=== PATIENT | female | born 1960 | race Caucasian/White ===

== ENCOUNTER → 2017-11-13 01:14 | Outpatient (CLI) | payer MEDICAID, SELFPAY ==
--- NOTE | 2017-11-13 14:27 | DI.REPORT_ITS ---
SYMPTOMS/DIAGNOSIS: ? SCOLIOSIS LUMBAR AND THORACIC, M23.91, M25.551, M53.3, M54.5, KYPHOSIS SACRUM AND COCCYX: No fracture is identified. No gross lytic or blastic bony lesions are identified. The SI joints and pubic symphysis are unremarkable. IMPRESSION: Negative sacrum and coccyx. PELVIS AND RIGHT HIP: The hip joint space is well maintained. There are no visible degenerative changes. The bones appear normally mineralized. IMPRESSION: Negative pelvis and right hip. RIGHT KNEE: The joint spaces are well maintained. There is minimal spurring at the articular aspect of the patella and medial tibial plateau. No joint effusion is visible. IMPRESSION: Minimal patellofemoral degenerative changes.
== END ==
PROVIDERS: PCP Naturopath; Visit Provider Naturopath
DX: M25.551 Pain in right hip (principal); M25.561 Pain in right knee; M17.11 Unilateral primary osteoarthritis, right knee; M53.3 Sacrococcygeal disorders, not elsewhere classified; M54.5 Low back pain; M40.04 Postural kyphosis, thoracic region
CPT/HCPCS: 72081; 73562; 72220; 73502

== ENCOUNTER 2018-11-13 07:00 | Outpatient (REF) | payer MEDICAID, SELFPAY ==
--- NOTE | 2018-11-13 10:00 | PAPFT_PTH ---
PATIENT: Maddi Rodriguez I LOC: [facility] U#:[id number] AGE/SX: 58/F ROOM: RE11/13/[address]: Jasmyn Us : 1960 BED: DIS: 11/13/2018 SPEC #: [id number] RECD: 11/14/18 12:47 STATUS: [place] #: [id number] TANVI: 11/13/18 10:[address]: Jasmny Us DEPT: [facility] Cytology RECD BY: Telma Lewis Tissues: 1 - CX/ENDOCX FOR PAP SMEARS Procedures: PAP THIN PREP/UVM Screening Comments: [id number]
== END 2018-11-13 07:20 ==
LOC: LBN 07:00
PROVIDERS: PCP Naturopath; Visit Provider Naturopath
DX: Z12.4 Encounter for screening for malignant neoplasm of cervix (principal)
CPT/HCPCS: 88142

== ENCOUNTER 2018-12-13 09:30 | Outpatient (CLI) | payer MEDICAID, SELFPAY ==
[2018-12-13 10:22] LABS: Absolute Basophil Count 0.02 k/cumm (0.0-0.2); Absolute Eosinophil Count 0.04 k/cumm (0.0-0.7); Absolute Lymphocyte Count 1.71 k/cumm (1.2-3.4); Absolute Monocyte Count 0.28 k/cumm (0.11-0.7); Absolute Neutrophil Count 1.32 k/cumm (1.2-6.7); Basophils % 0.6; Eosinophils % 1.2; HCT 40.9 % (36.0-46.0); HGB 13.4 g/dL (12.0-15.5); Lymphocytes % 50.7; Mean Corp. HGB Concentration 32.8 g/dL (32.0-36.0); Mean Corpuscular Hemoglobin 31.4 pg (27.0-33.0); Mean Corpuscular Volume 95.8 fL (80-95); Mean Platelet Volume 10.5 fL (8.0-11.0); Monocytes % 8.3; Neutrophils % 39.2; Platelet Count 236 x1000/uL (130-400); RBC 4.27 m/cumm (4.00-5.20); RBC Distribution Width 12.3 % (11.7-14.6); White Blood Cell Count 3.37 k/cumm (4.4-10.8)
[2018-12-13 10:36] LABS: Diff Comment Agrees w/ Instrument; RBC Morphology Normal
[2018-12-13 11:14] LABS: ALT 20 U/L (14-59); AST 19 U/L (15-37); Albumin 4.1 g/dL (3.4-5.0); Alkaline Phosphatase 75 U/L (46-116); Anion Gap 9.8 mmol/L (3-11); BUN 11 mg/dL (7-18); Bilirubin, Total 0.6 mg/dL (0.2-1.0); CO2 26.2 mmol/L (21.0-32.0); CREATININE 0.64 mg/dL (0.55-1.02); Calcium 9.3 mg/dL (8.5-10.1); Chloride 105 mmol/L (98-107); FREE T4 0.85 ng/dL (0.76-1.46); Glucose 97 mg/dL (70-100); Potassium 4.1 mmol/L (3.5-5.1); Sodium 141 mmol/L (136-145); TSH 0.68 uIU/mL (0.36-3.74)
[2018-12-13 11:40] LABS: Ferritin 72 ng/mL (8-388)
[2018-12-13 11:57] LABS: Hemoglobin A1C 5.8 % (4.5-6.2)
[2018-12-13 16:47] LABS: T3,Free 3.1 pg/ml (2.8-5.3)
[2018-12-16 14:36] LABS: ANA Interpretation Negative (NEGAT)
[2018-12-17 14:07] LABS: Apolipoprotein B, Serum 138 mg/dL (48-124); Beta VLDL Cholesterol Not Detected mg/dL (<15); Beta VLDL Triglycerides Not Detected mg/dL (<15); Cholesterol, Total, CDC 295 mg/dL; Chylomicron Cholesterol Not Detected; Chylomicron Triglycerides Not Detected; HDL Cholesterol, CDC 88 mg/dL (>=50); LDL Cholesterol 165 mg/dL; LDL Triglycerides 26 mg/dL (<=50); Lp(a) Cholesterol 32 mg/dL (<5); LpX Not detected; Triglycerides, CDC 58 mg/dL; VLDL Cholesterol 10 mg/dL (<30); VLDL Triglycerides 19 mg/dL (<120)
== END 2018-12-13 09:50 ==
PROVIDERS: PCP Naturopath; Visit Provider Naturopath
DX: R42 Dizziness and giddiness (principal); R53.83 Other fatigue; D50.9 Iron deficiency anemia, unspecified; E78.00 Pure hypercholesterolemia, unspecified; M54.40 Lumbago with sciatica, unspecified side; Z13.1 Encounter for screening for diabetes mellitus; M62.40 Contracture of muscle, unspecified site
CPT/HCPCS: 80053; 80061; 82172; 82664; 82728; 83036; 84439; 84443; 84481; 85025; 86038

== ENCOUNTER 2021-05-10 15:03 | Outpatient (REF) | payer BC, SELFPAY ==
[2021-05-11 14:07] LABS: HLA-B27 Result Negative
[2021-05-12 09:13] LABS: IgA 160 mg/dL (85-499); Interpretation (See Note); Tissue Transglutaminase IgA <1.2 U/mL (<4.0)
== END 2021-05-10 15:04 | disposition home or self-care (01) ==
LOC: NCHCN 15:03
PROVIDERS: PCP Naturopath; Visit Provider Family Medicine
DX: M19.90 Unspecified osteoarthritis, unspecified site (principal); M54.59 Other low back pain; R10.9 Unspecified abdominal pain
CPT/HCPCS: 82784; 83516; 86812

== ENCOUNTER 2022-05-09 14:40 | Emergency (ER) | payer BC, SELFPAY ==
[2022-05-09 14:44] VITALS: BP 101/71; PULSE 77; RESP 20; TEMP 36.8; O2SAT 99
[2022-05-09 16:20] VITALS: BP 117/81; PULSE 75; RESP 16; TEMP 36.7; O2SAT 97
--- NOTE | 2022-05-09 16:20 | W.ED.GENAD ---
Discharge Plan Disposition Patient Disposition: Home Condition: Stable Discharge Details Clinical Impression: Ankle pain, right Primary Care Provider: Jada Ventura V ED Provider: Bernard Abernathy Home Meds and New Rx's Prescriptions: Continued valacyclovir 500 MG tablet 500 mg PO BID Qty: 6 Label Comments: pt. reports PRN multivitamin 1 EACH capsule 1 cap PO DAILY magnesium 200 MG tablet 200 mg PO DAILY Label Comments: pt. unsure of dose cholecalciferol (vitamin D3) 1,000 UNITS tablet 1 tab PO DAILY acetaminophen [Acetaminophen Extra Strength] 500 MG tablet 1,000 mg PO TID Qty: 90 1RF ibuprofen 600 MG tablet 600 mg PO Q6H PRN PRNQty: 90 1RF Discharge Instructions Instructions: Ankle Strain (ED) Additional Instructions: Rest, elevate, cool compresses every 2 hours for 20 minutes. [id number]-ume-scpicaf anti-inflammatory medication as directed. Wear ankle brace and use crutches as needed, advance activity as tolerated. Please watch for new or worsening symptoms and return to the ER for any concerns. If conservative measures or not resolving her symptoms that I do recommend following up with either your primary care provider or orthopedics in the next week. Referrals: Donovan Bassett MD [ [facility] STAFF PHYSICIAN] - Discharge Data Discharge Date/Time-TO BE ENTERED AT DEPARTURE: 05/09/22 16:26 Medical Decision Making This is a 62-year-old female who reports right foot and ankle pain for the past 3 weeks, primarily on the medial aspect, denies any injury. Bought [id number] orthotics and has been treating this as what she thought was to be plantar fasciitis but over the past 24 hours reports more pain along the posterior and medial aspect of her heel, she spoke with a friend who is a physical therapist, suggested that she could have Achilles tendinitis and recommended coming to the ER for an MRI. She denies chest pain, shortness of breath, fever, calf pain or swelling. Clinically she appears well, nontoxic. I did explain to her that unfortunately we cannot obtain a stat MRI today, could obtain plain films. She understands the limitations of plain films, no trauma, declines which I believe to be reasonable. Plan is to treat with a lace up splint, patient already has crutches, and she will follow-up with either her PCP or orthopedics for further evaluation. No clinical indication of an Achilles rupture, septic joint, DVT, etc. Recommend conservative measures until she is followed by an outpatient provider such as rest, elevate, cool compresses, anti-inflammatories, etc. Standard discharge and return precautions were provided. Patient understands, is agreeable to this plan, and has no additional questions or concerns upon discharge. This documentation was generated using [employer] system, please disregard any oddities of phrase or misspellings. Medical Records Medical records reviewed: Yes I reviewed the patient's medical records. HPI General Mode of arrival: ambulatory. Date/Time Provider Initiated Documentation: 05/09/22 14:41. Limitations to Documentation: no limitations. Information obtained by: patient. History of Present Illness 62 year old F presents to the emergency department with the chief complaint of R ankle pain, described as moderate, with intensity rated at 4. Quality is described as aching, and is localized to the right and lower extremity. Patient reports no radiation. Patient started experiencing this week(s) (3) and it has been constant. No relieving factors improve symptom(s), Movement worsens symptoms . Patient notes no other symptoms.. Patient did receive the following treatments prior to arrival, none Related Data Home Medications Medication Instructions Recorded Confirmed valacyclovir 500 mg tablet 500 mg PO BID #6 tabs 11/24/13 05/09/22 acetaminophen 500 mg tablet 1,000 mg PO TID ##90 03/06/17 05/09/22 (Acetaminophen Extra Strength) cholecalciferol (vitamin D3) 25 1 tab PO DAILY 03/06/17 05/09/22 mcg (1,000 unit) tablet ibuprofen 600 mg tablet 600 mg PO Q6H PRN PRN ##90 03/06/17 05/09/22 magnesium 200 mg tablet 200 mg PO DAILY 03/06/17 05/09/22 multivitamin 1 cap PO DAILY 03/06/17 05/09/22 Previous Rx's Medication Instructions Recorded acetaminophen 500 mg tablet 1,000 mg PO TID ##90 03/06/17 (Acetaminophen Extra Strength) ibuprofen 600 mg tablet 600 mg PO Q6H PRN PRN ##90 03/06/17 Allergies Allergy/AdvReac Type Severity Reaction Status Date / Time codeine AdvReac Unverified 05/09/22 14:48 General Stated Complaint: Orthopedic HOLLY: 4 Review of Systems Constitutional Constitutional: Denies fever(s) and Denies weakness Cardiovascular Cardiovascular: Denies chest pain and Denies dyspnea Respiratory Respiratory: Denies dyspnea Musculoskeletal Musculoskeletal: Reports arthralgias, Denies numbness, Reports stiffness and Denies tingling Integumentary/Breasts Skin/Breast: Denies rash Neurologic Neurologic: Denies numbness, Denies tingling and Denies weakness PFSH All Active Problems Ankle pain, right (Acute) Medical History Genital herpes simplex Surgical History Fracture, Open Treatment 1972 R leg 2002 R ankle some hardware removed with 2 pins left in situ Family History Mother Personal history of malignant neoplasm Social History Smoking/Tobacco Use Status: Never Smoking risk assessment performed?: Yes Alcohol Intake: current Alcohol Intake frequency: 0-2 drinks per day Alcohol type: wine Drug use: Never Substance use type: does not use Do you feel safe at home: Yes Do you feel safe in your relationship?: Yes Exam Const General: cooperative, healthy appearing, comfortable and no acute distress Orientation: alert and awake HENLA Head: normal to inspection, normocephalic and atraumatic Eyes Conjunctivae: conjunctivae normal Neck Neck: normal visual inspection, full ROM, no meningeal signs, trachea midline and supple Resp Effort & Inspection: normal respiratory effort and able to speak in complete sentences Cardio Rate: regular rate Rhythm: regular rhythm Skin General skin exam: no rashes or lesions noted Neuro General: patient alert, patient awake, moves all extremities and no focal motor deficits Cognition: normal cognition Speech: speech normal Gait: antalgic (Minimally) Sensory Exam: no sensory deficits noted Extrem General: normal to inspection, full ROM and capillary refill normal Ankle/foot/toe images: 1. Diffuse mild discomfort. There is no erythema, swelling, warmth. Skin is intact. 5 out of 5 strength. Neuro, vascular, tendon intact. Multiple pulse and capillary refill. Psych Appearance: grossly normal Mental Status: mental status grossly normal Course Vital Signs Vital signs: Vital Signs Temperature 36.8 C 05/09/22 14:44 Pulse 77 05/09/22 14:44 Respiratory Rate 20 05/09/22 14:44 Blood Pressure 101/71 05/09/22 14:44 Pulse Oximetry 99 05/09/22 14:44 Temperature 36.8 C 05/09/22 14:44 Temperature Source Skin 05/09/22 14:44 Pulse 77 05/09/22 14:44 Respiratory Rate 20 05/09/22 14:44 Respiratory Effort 05/09/22 14:49 Blood Pressure 101/71 05/09/22 14:44 Blood Pressure Position Sitting 05/09/22 14:44 Pulse Oximetry 99 05/09/22 14:44 Oxygen Delivery Method Room Air 05/09/22 14:44 Oxygen Flow Rate 0 05/09/22 14:44 Pain Level 5 05/09/22 14:44
== END 2022-05-09 16:26 | disposition home or self-care (01) ==
PROVIDERS: Emergency Provider Physician Assistant; PCP Family Medicine
DX: M25.571 Pain in right ankle and joints of right foot (principal)
CPT/HCPCS: 99282; 99283

== ENCOUNTER 2022-05-10 15:47 | Outpatient (CLI) | payer BC, SELFPAY ==
--- NOTE | 2022-05-10 15:15 | DI.RAD_ITS ---
Exam(s) XR ANKLE RT COMPLETE EXAM: XR ANKLE RT COMPLETE CLINICAL HISTORY: RIGHT ANKLE PAIN. TECHNIQUE: 2D digital imaging was performed. Three images were obtained. AP, lateral and oblique vi ews were obtained. COMPARISON: CR RIGHT ANKLE COMPLETE from 01/17/2017 FINDINGS: BONES: There are stable post operative changes present. No new fracture or dislocation. There is a s mall plantar calcaneal spur. JOINTS: The joint spaces are well maintained. No joint effusion is present. SOFT TISSUE: Normal. IMPRESSION: Stable postoperative changes. DATA REPOSITORY: RADIATION DOSE DELIVERED:
== END 2022-05-10 15:48 | disposition home or self-care (01) ==
LOC: DIORS 15:47
PROVIDERS: PCP Family Medicine; Referring Provider Family Medicine; Visit Provider Student in an Organized Health Care Education/Training Program
DX: M25.571 Pain in right ankle and joints of right foot (principal)
CPT/HCPCS: 73610

== ENCOUNTER 2023-03-12 11:47 | Outpatient (REF) | payer MEDICARE, BC, SELFPAY ==
[2023-03-12 16:03] LABS: TSH (W/Ref FT4) 0.86 uIU/mL (0.36-3.74)
== END 2023-03-12 11:48 | disposition home or self-care (01) ==
LOC: NCHCN 11:47
PROVIDERS: PCP Family Medicine; Visit Provider Nurse Practitioner Family
DX: R53.83 Other fatigue (principal)
CPT/HCPCS: 84443

== ENCOUNTER → 2023-03-13 02:21 | Outpatient (CLI) | payer MEDICARE, BC, SELFPAY ==
--- NOTE | 2023-03-13 10:03 | DI.US_ITS ---
Exam(s) US SOFT TISSUE HEAD OR NECK EXAM: US SOFT TISSUE HEAD OR NECK CLINICAL HISTORY: MASS OF NECK, R22.1,SINGLE LYMPH NODE TONSILLAR AREA. TECHNIQUE: Ultrasound was performed using standard protocol. COMPARISON: No exams were available for comparison FINDINGS: Sonographic assessment utilizing grayscale and color Doppler imaging was performed and targeted to th e area of clinical concern. There is a 1.2 x 0.8 x 1.4 cm peripherally calcified nodule in the submandibular region of the left n minerva. There are several sonographically benign-appearing lymph nodes in the left neck. The largest m easures 1.7 cm. IMPRESSION: Nonspecific 1.2 x 0.8 x 1.4 cm periphery calcified nodule in the left submandibular region. A CT sca n of the neck with contrast is recommended for further evaluation. DATA REPOSITORY:
== END ==
PROVIDERS: PCP Family Medicine; Visit Provider Nurse Practitioner Family
DX: R22.1 Localized swelling, mass and lump, neck (principal)
CPT/HCPCS: 76536

== ENCOUNTER → 2023-03-21 03:12 | Outpatient (CLI) | payer MEDICARE, BC, SELFPAY ==
--- NOTE | 2023-03-21 | DI.CT_ITS ---
Exam(s) CT NECK W EXAM: CT NECK W CLINICAL HISTORY: ABNL FINDINGS R93.89 US ON 03/13. TECHNIQUE: Imaging Protocol: Axial computed tomography images with coronal and sagittal reformatted images were created and reviewed. CONTRAST MATERIAL: Intravenous: Omnipaque 350 Contrast volume:100mL COMPARISON: US US SOFT TISSUE HEAD OR NECK from 03/13/2023 FINDINGS: There is artifact from the patient's dental work predominantly affecting evaluation of the oropharynx . Orbits and orbital soft tissues: Within normal limits. Visualized paranasal sinuses: Within normal limits. Nasopharynx: Within normal limits. Oropharynx: Within normal limits. Hypopharynx: Within normal limits. Larynx: Within normal limits. Retropharyngeal space: Within normal limits. Parotids/submandibular: Within normal limits. There is a 0.9 x 1.3 cm peripherally calcified mass wh ich lies near the angle of the mandible. It is adjacent to the left submandibular gland and may be s eparate from the gland. There is a smaller 3 mm calcification laterally. Thyroid gland: Within normal limits. Lymphadenopathy: There is scattered lymph nodes seen along the level one to level three all measurin g less than 8 mm in short axis diameter which are physiologic in nature. Trachea: Within normal limits. Lung apices: Within normal limits. Bones: Within normal limits for the patient's age. Carotids/Jugular: Within normal limits. Soft tissues: Within normal limits. IMPRESSION: 1. 0.9 x 1.3 cm peripherally calcified lesion in the soft tissues corresponding to the sonographic ab normality. Differential considerations include a calcified lymph node, sialolith or vascular calcifi cation/phlebolith. 2. No evidence of cervical adenopathy or soft tissue mass. RADIATION DOSE DELIVERED: Total DLP Total DLP DATA REPOSITORY: All CT scans at this facility are submitted to the National Radiology Data Registry (NRDR) Dose Index Registry (DIR) with the [employer] ([employer]). RADIATION OPTIMIZATION: All CT scans at this facility use at least one of these dose optimization te chniques: automated exposure control; mA and/or kV adjustment per patient size (includes targeted exa ms where dose is matched to clinical indication); or iterative reconstruction.
[2023-03-21 09:49] LABS: CREATININE 0.6 mg/dL (0.55-1.02); Estimated GFR 99.55 (mL/min/1.73m2)
[2023-03-21] MEDS: Normal Saline - Diluent 50 ML VIAL IJ (10:18)
[2023-03-21] MEDS: Omnipaque 350 MG/ML 500 ML BTL-Imaging package 100 ML IJ (10:23)
[2023-03-21] MEDS: Normal Saline Flush 10 ML SYR IVP (10:27)
== END ==
PROVIDERS: PCP Family Medicine; Visit Provider Nurse Practitioner Family
DX: R93.89 Abnormal findings on diagnostic imaging of other specified body structures (principal)
CPT/HCPCS: 36415; 70491; 82565

== ENCOUNTER 2023-08-07 10:43 | Outpatient (REF) | payer MEDICARE, BC, SELFPAY ==
[2023-08-07 15:28] LABS: HCT 39.2 % (36.0-46.0); HGB 13.4 g/dL (11.2-15.7)
[2023-08-07 16:05] LABS: ALT 23 U/L (14-59); AST 20 U/L (15-37); Albumin 4.2 g/dL (3.4-5.0); Alkaline Phosphatase 87 U/L (46-116); Anion Gap 10.9 mmol/L (3-11); BUN 16 mg/dL (7-18); Bilirubin, Total 0.5 mg/dL (0.2-1.0); CO2 27.1 mmol/L (21.0-32.0); CREATININE 0.7 mg/dL (0.55-1.02); Calcium 9.3 mg/dL (8.5-10.1); Chloride 103 mmol/L (98-107); Estimated GFR 95.92 (mL/min/1.73m2); Ferritin 70 ng/mL (8-252); Glucose 117 mg/dL (74-106); Potassium 4.4 mmol/L (3.5-5.1); Sodium 141 mmol/L (136-145); TSH 0.64 uIU/Ml (0.36-3.74); Total Protein 7.3 g/dL (6.4-8.2)
[2023-08-07 16:22] LABS: Hemoglobin A1C 5.7 % (<5.7)
== END 2023-08-07 10:44 | disposition home or self-care (01) ==
LOC: NCHCN 10:43
PROVIDERS: PCP Family Medicine; Visit Provider Family Medicine
DX: J01.90 Acute sinusitis, unspecified (principal); Z00.00 Encounter for general adult medical examination without abnormal findings
CPT/HCPCS: 80053; 82728; 83036; 84443; 85014; 85018

== ENCOUNTER 2023-10-25 09:23 | Outpatient (CLI) | payer MEDICARE, BC, SELFPAY | END 2023-10-25 09:24 | disposition home or self-care (01) | LOC: LBO 11-05 09:23 | PROVIDERS: PCP Nurse Practitioner Family; Visit Provider Nurse Practitioner Adult Health | DX: R51.9 Headache, unspecified (principal); R23.2 Flushing; R50.9 Fever, unspecified | CPT/HCPCS: 36415; 99215; G2212; 87207 ==

== ENCOUNTER → 2023-10-25 13:34 | Outpatient (BNVA) | payer MEDICARE, BC, SELFPAY | PROVIDERS: PCP Family Medicine; Referring Provider Family Medicine; Visit Provider Nurse Practitioner Adult Health | DX: R51.9 Headache, unspecified (principal); M54.2 Cervicalgia; Z11.6 Encounter for screening for other protozoal diseases and helminthiases | CPT/HCPCS: 99215; G2212 ==

== ENCOUNTER 2023-11-01 14:54 | Outpatient (CLI) | payer MEDICARE, BC, SELFPAY ==
[2023-11-01 14:00] LABS: Abs Immature Grans 0.01 10^3/uL (0.0-0.06); Absolute Basophil Count 0.03 10^3/uL (0.0-0.2); Absolute Eosinophil Count 0.04 10^3/uL (0.0-0.7); Absolute Lymphocyte Count 2.54 10^3/uL (1.2-3.4); Absolute Monocyte Count 0.37 10^3/uL (0.1-0.8); Absolute Neutrophil Count 2.11 10^3/uL (1.2-6.7); Basophils % 0.6 %; Eosinophils % 0.8 %; HCT 39.4 % (36.0-46.0); HGB 13.2 g/dL (11.2-15.7); Immature Grans % 0.2 %; Lymphocytes % 49.8 %; MCH 31.7 pg (27.0-33.0); MCHC 33.5 % (32.0-36.0); MCV 95 fL (80-95); MPV 9.7 fL (8.0-11.0); Monocytes % 7.3 %; Neutrophils % 41.3 %; Platelet Count 237 10^3/uL (130-400); RBC 4.17 10^6/uL (3.93-5.22); RDW 11.9 % (11.7-14.6); RDW-SD 41.6 fL
--- OUTSIDE RECORDS SUMMARY | 2023-11-01 14:58 | XMS_ITS | Data Portability ---
Author Organization [place] - [facility], [facility] [place] [address] Care Team Providers Care Woodyard Operator Name Role Phone CATHERINE HARVEY Primary Care Provider Assessment No assessment recorded. Plan of Treatment Reminders Order Date Submit Date Provider Last Modified By Organization Details Last Modified Time Details Appointments None recorded. Lab TSH, serum, reflex free T4 - collected at [facility] [address] Laboratory (Registration ), [address] [place] [address] [place], [address], 3 12:57:46 hemoglobin + hematocrit, blood [address] [facility] (Registration ), [address] [place] [address] [place], [address], 4 17:08:07 CMP, serum or plasma [address] [facility] (Registration ), [address] [place] [address] [place], [address], 4 17:08:07 Referral None recorded. Procedures None recorded. Surgeries None recorded. Imaging US, neck, soft tissue - Patient has single lymph node left tonsillar area been there for a number of years would like further evaluation. 2022 023 [email or web address] [facility], [address], [place], [address], 3 12:58:46 Medication Orders None recorded. Patient TargetsNo targets recorded. Patient Instructions Encounter Date Encounter Id Patient Instructions Last Modified By Organization Details Last Modified Time 03/12/2023 [id number] continue with melatonin (can go up to 10mg a night), perform good sleep hygeine- go to bed when VERY tire, avoid caffeine, consider cutting back on alcohol in the evening. If no improvement call and will refer to sleep clinic. checking thyroid today- will mail home results. expect a call from [facility] re: US on the lymph node in your neck continue PT for your neck/back- if no improvment in 4-6 weeks call and will re-evaluate- consider imaging of spine follow up as needed [email or web address] Not available 03/12/2023 10:00:46 Reason for Referral ENT Surgery Referral for Sin us headache Referring Physician: Catherine Harvey, Family Medicine, Encounter Date: 08/31/2023 Results Created Date Observation Date Name Description Value Unit Range Abnormal Flag LastModifiedBy Organization Detail LastModifiedTime 03/12/2003/12/2023 TSH (W/RE F FT4) TSH (w/ref FT4) 0.86 uIU/m L 0.36-3 .74 normal Not Available [address] [place], [address] 03/12/2023 16:06:16 03/21/20 23 03/21/2023 CREAT ININE creatinine 0.6 mg/dL 0.55-1 .02 normal Not Available [address] [place], [address] 03/21/2023 09:56:14 03/21/20 23 03/21/2023 CREAT ININE estimated GFR 99.55 mL/min /1.73m 2 Not Available [address] [place], [address] 03/21/2023 09:56:14 08/07/19 24 08/07/2023 HEMOG LOBIN /RUSLAN TOCRI T HGB 13.4 g/dL 11.2-1 5.7 normal Not Available [address] [place], [address] 08/07/2023 15:39:30 08/07/19 24 08/07/2023 HEMOG LOBIN /RUSLAN TOCRI T HCT 39.2 % 36.0-4 6.0 normal Not Available [address] [place], [address] 08/07/2023 15:39:30 08/07/19 24 08/07/2023 COMPR EHENS NAVEEN METAB OLIC PANEL calcium 9.3 mg/dL 8.5-10 .1 normal Not Available [address] [place], [address] 08/07/2023 16:08:57 08/07/19 24 08/07/2023 COMPR EHENS NAVEEN METAB OLIC PANEL glucose 117 mg/dL 74-106 high Not Available [address] [place], [address] 08/07/2023 16:08:57 08/07/19 24 08/07/2023 COMPR EHENS NAVEEN METAB OLIC PANEL BUN 16 mg/dL 7-18 normal Not Available [address] [place], [address] 08/07/2023 16:08:57 08/07/19 24 08/07/2023 COMPR EHENS NAVEEN METAB OLIC PANEL creatinine 0.7 mg/dL 0.55-1 .02 normal Not Available [address] [place], [address] 08/07/2023 16:08:57 08/07/19 24 08/07/2023 COMPR EHENS NAVEEN METAB OLIC PANEL estimated GFR 95.92 mL/min /1.73m 2 Not Available [address] [place], [address] 08/07/2023 16:08:57 08/07/19 24 08/07/2023 COMPR EHENS NAVEEN METAB OLIC PANEL total protein 7.3 g/dL 6.4-8. 2 normal Not Available [address] [place], [address] 08/07/2023 16:08:57 08/07/19 24 08/07/2023 COMPR EHENS NAVEEN METAB OLIC PANEL albumin 4.2 g/dL 3.4-5. 0 normal Not Available [address] [place], [address] 08/07/2023 16:08:57 08/07/19 24 08/07/2023 COMPR EHENS NAVEEN METAB OLIC PANEL bilirubin, total 0.5 mg/dL 0.2-1. 0 normal Not Available [address] [place], [address] 08/07/2023 16:08:57 08/07/19 24 08/07/2023 COMPR EHENS NAVEEN METAB OLIC PANEL alk phos 87 U/L 46-116 normal Not Available [address] [place], [address] 08/07/2023 16:08:57 08/07/19 24 08/07/2023 COMPR EHENS NAVEEN METAB OLIC PANEL sodium 141 mmol/ L 136-14 5 normal Not Available [address] [place], [address] 08/07/2023 16:08:57 08/07/19 24 08/07/2023 COMPR EHENS NAVEEN METAB OLIC PANEL potassium 4.4 mmol/ L 3.5-5. 1 normal Not Available [address] [place], [address] 08/07/2023 16:08:57 08/07/19 24 08/07/2023 COMPR EHENS NAVEEN METAB OLIC PANEL chloride 103 mmol/ L 98-107 normal Not Available [address] [place], [address] 08/07/2023 16:08:57 08/07/19 24 08/07/2023 COMPR EHENS NAVEEN METAB OLIC PANEL CO2 27.1 mmol/ L 21.0-3 2.0 normal Not Available [address] [place], [address] 08/07/2023 16:08:57 08/07/19 24 08/07/2023 COMPR EHENS NAVEEN METAB OLIC PANEL anion gap 10.9 mmol/ L 3-11 normal Not Available [address] [place], [address] 08/07/2023 16:08:57 08/07/19 24 08/07/2023 COMPR EHENS NAVEEN METAB OLIC PANEL AST 20 U/L 15-37 normal Not Available [address] [place], [address] 08/07/2023 16:08:57 08/07/19 24 08/07/2023 COMPR EHENS NAVEEN METAB OLIC PANEL ALT 23 U/L 14-59 normal Not Available [address] [place], [address] 08/07/2023 16:08:57 08/07/19 24 08/07/2023 NIK TIN ferritin 70 NG/mL 8-252 normal Not Available [address] [place], [address] 08/07/2023 16:08:58 08/07/19 24 08/07/2023 TSH TSH 0.64 uIU/m L 0.36-3 .74 normal Not Available [address] [place], [address] 08/07/2023 16:08:58 08/07/19 24 08/07/2023 HEMOG LOBIN A1C hemoglobin A1C 5.7 % <5.7 Not Available [address] [place], [address] 08/07/2023 16:29:01 10/25/19 24 10/29/2023 WICHO ITE EXAM, BLOOD parasite identificati on SEE BELOW (see note) Not Available [address] [place], [address] 10/29/2023 08:18:07 03/13/20 23 03/13/2023 ultra sound imagi ng repor t Contreras t Name: Nahomy Araujo Unit #: [id number] Loc: DI Orderi ng Provid er: Gabriel Negron t #: [id number] Status : REG CLI Primar y Care Provid er: Yue Bauer M.D. Date of Exam : Sex: F Admiss ion Date: : 1959 Age: 62 Exam(s ) US SOFT TISSUE HEAD OR NECK EXAM: US SOFT TISSUE HEAD OR NECK CLINIC AL HISTOR Y: MASS OF NECK, R22.1, SINGLE LYMPH NODE TONSIL LAR AREA. TECHNI QUE: Ultras ound was perfor med using standa rd protoc ol. COMPAR RUBI: No exams were availa ble for compar rubi FINDIN GS: Sonogr aphic assess ment utiliz ing graysc marsha and color Dopple r imagin g was perfor med and target ed to the area of clinic al concer n. There is a 1.2 x 0.8 x 1.4 cm periph erally calcif ied nodule in the subman dibula r region of the left neck. There are severa l sonogr aphica lly benign -appea ring lymph nodes in the left neck. The larges t measur es 1.7 cm. IMPRES DALLAS: Nonspe cific 1.2 x 0.8 x 1.4 cm periph derek calcif ied nodule in the left subman dibula r region . A CT scan of the neck with contra st is recomm ended for furthe r evalua tion. DATA REPOSI TORY: Ordere d By: Gabriel Negron CC: ------ ------ ------ ------ ------ ------ ------ ------ ------ ------ ------ ------ - Dictat ed By: Sarmad Guzmán M.D. 1028 1028 Transc ribed By: Sarmad Guzmán 1028 This is privil eged, confid ential inform ation intend ed only for the provid er named. Any use or distri bution by any person other than this provid er is strict ly prohib ited. If you receiv e this report in error, please notify us immedi ately at and return the origin al report to us at the addres s above. Thank- you. [email or web address] [address] [place], [address] 03/14/2023 14:37:17 03/21/20 23 03/21/2023 CT imagi ng repor t Contreras t Name: Nahomy Araujo Unit #: [id number] Loc: DI Orderi ng Provid er: Gabriel Negron t #: [id number] Status : REG CLI Primar y Care Provid er: Yue Bauer M.D. Date of Exam : Sex: F : 1959 Age: 63 Exam(s ) a CT:CT neck w Exam(s ) CT NECK W EXAM: CT NECK W CLINIC AL HISTOR Y: ABNL FINDIN GS R93.89 US ON 03/13. TECHNI QUE: Imagin g Protoc ol: Axial comput ed tomogr aphy images with velazquez l and sagitt al reform atted images were create d and review ed. CONTRA ST MATERI AL: Intrav enous: Omnipa que [address] volume :100mL COMPAR RUBI: US US SOFT TISSUE HEAD OR NECK from 2022 FINDIN GS: There is artifa ct from the patien t's dental work predom inantl y affect ing evalua tion of the oropha rynx. Orbits and orbita l soft tissue s: Within normal limits . Visual ized parana jemma sinuse s: Within normal limits . Nasoph arynx: Within normal limits . Oropha rynx: Within normal limits . Hypoph arynx: Within normal limits . Larynx : Within normal limits . Retrop haryng eal space: Within normal limits . Paroti ds/sub mandib ular: Within normal limits . There is a 0.9 x 1.3 cm periph erally calcif ied mass which lies near the angle of the mandib le. It is adjace nt to the left subman dibula r gland and may be separa te from the gland. There is a smalle r 3 mm calcif icatio n latera lly. Thyroi d gland: Within normal limits . Lympha denopa thy: There is scatte red lymph nodes seen along the level one to level three all measur ing less than 8 mm in short axis diamet er which are physio logic in nature . Trache a: Within normal limits . Lung apices : Within normal limits . Bones: Within normal limits for the patien t's age. Caroti ds/Jug ular: Within normal limits . Soft tissue s: Within normal limits . IMPRES DALLAS: 1. 0.9 x 1.3 cm periph erally calcif ied lesion in the soft tissue s corres shey g to the sonogr aphic abnorm ality. Differ ential consid eratio ns includ e a calcif ied lymph node, sialol ith or vascul ar calcif icatio n/phle bolith . 2. No eviden ce of cervic al adenop athy or soft tissue mass. RADIAT ION DOSE DELIVE RED: Total DLP Total DLP DATA REPOSI TORY: All CT scans at this facili ty are submit evens to the [facility] al Radiol ogy Data Regist ry (NRDR) Dose Index Regist ry (DIR) with the [place] medellin of Radiol ogy (ACR). RADIAT ION OPTIMI ZATION : All CT scans at this facili ty use at least one of these dose optimi zation techni ques: automa evens exposu re contro l; mA and/or kV adjust ment per patien t size (inclu cynthia target ed exams where dose is matche d to clinic al indica tion); or iterat naveen recons tructi on. 1220-0 002: Total DLP = 0.00 mGy-cm Ordere d By: Gabriel Negron CC: ------ ------ ------ ------ ------ ------ ------ ------ ------ ------ ------ ------ ---- Dictat ed By: Sarmad Guzmán M.D. 1806 Transc ribed By: Sarmad Guzmán 1806 This is privil eged, confid ential inform ation intend ed only for the provid er named. Any use or distri bution by any person other than this provid er is strict ly prohib ited. If you receiv e this report in error, please notify us immedi mika at and return the origin al report to us at the addres s above. Thank- you. [email or web address] [facility] [address], [place], [address] 09/07/2023 13:20:37 09/20/19 24 09/18/2023 MRI, brain , w/wo contr ast No observ ation record ed. [email or web address] [facility] [address] [facility], [place], [address], 09/21/2023 15:57:13 Result Notes None recorded. Problems Name Status Onset Date Resolution Date Notes Provider Name and Address Organization Details Recorded Time Osteoarthritis Active 202011/22/2022 - Comments only - Catherine Harvey MD - Not bothering her significantly currently, she is remaining quite physically active. Problem Code: M19.90; Problem Code Type: ICD-10; Not Available [facility] 3 05:49:38 Disorder of cholesterol metabolism Active 202011/22/2022 - Comments only - Catherine Harvey MD - We discussed checking a lipid panel with her wellness check next year. Problem Code: E78.70; Problem Code Type: ICD-10; Not Available [facility] 3 05:49:39 Herpesvirus infection Active 202011/22/2022 - Comments only - Catherine Harvey MD - Recurring lesion right buttock area. She feels that the acyclovir 200 mg is not adequate to keep it controlled. She will be having increasing flares recently, she realizes stress related. She previously remembers being on a 500 mg tablet. I explained that would be valacyclovir, she confirmed that it was not that worked better. Also take valacyclovir 500 mg twice daily for an acute flare for a week, then she can take it daily prophylacticall y at least while life is more stressful. Problem Code: B00.9; Problem Code Type: ICD-10; Not Available [facility] 3 05:49:39 History of infectious disease Active 2021 Problem Code: Z86.19; Problem Code Type: ICD-10; Not Available [facility] 3 05:49:39 Adult health examination Active 202111/22/2022 - Comments only - Catherine Harvey MD - Mandi has a mammogram scheduled, up-to-date with Pap, due for colonoscopy, ordered. We will plan on a DEXA scan next year. She continues to lead a healthy lifestyle. Problem Code: Z00.00; Problem Code Type: ICD-10; Not Available [facility] 3 05:49:39 Abdominal pain Active 202104/18/2021 - Comments only - Catherine Harvey MD - , Intermittent. She feels it may be related to certain foods and has been trying to experiment with that. She did do an elimination diet but it was added challenging time in her life and does not think she really was able to focus well on it. We will get a copy of her colonoscopy report, and a blood work that could have been done. If she has not had a celiac panel checked then we will plan on checking that. Problem Code: R10.9; Problem Code Type: ICD-10; Not Available [facility] 3 05:49:39 Counseling Active 2021 Problem Code: Z71.89; Problem Code Type: ICD-10; Not Available [facility] 3 05:49:39 Low back pain Active 2021 Problem Code: M54.50; Problem Code Type: ICD-10; Not Available [facility] 3 05:49:39 Pain in left arm Active 202111/03/2021 - Comments only - Prosper López-Gerber [facility] - - It sounds as though she may have some combination of hand osteoarthritis and possibly lateral epicondylitis. She is not experiencing any numbness or tingling to suggest nerve impingement. - I gave her handout of exercises for hand arthritis. - Also suggested topical NSAID to the affected areas as needed. She may also benefit from icing these areas when they are feeling irritated. -For her elbow, I did suggest use of a counterforce brace to wear during activities that may be causing flareups, and also encouraged her to avoid hyperextending the elbow. -She is clearly benefited from massage, and I encouraged her to continue with this. 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 -She will call with any further questions or concerns. Problem Code: M79.602; Problem Code Type: ICD-10; Not Available [facility] 05:49:39 Screening for malignant neoplasm of colon Active 2022 Problem Code: Z12.11; Problem Code Type: ICD-10; Not Available [facility] 05:49:39 Anxiety Active 202211/22/2022 - Comments only - Catherine Harvey MD - Supportive listening today. She does have a counselor she is working with, is planning a trip by herself [place] couple of her children soon and thinks that will be helpful. Problem Code: F41.8; Problem Code Type: ICD-10; Not Available [facility] 05:49:39 Attention deficit hyperactivity disorder Active 202211/22/2022 - Comments only - Catherine Harvey MD - , Likely by discussion of symptoms. This may be contributing to anxiety as above. She is amenable to trying medication for ADHD. She is going to find out what her niece is using and let me know. Problem Code: F90.9; Problem Code Type: ICD-10; Not Available [facility] 05:49:40 Insomnia Active 202211/22/2022 - Comments only - Catherine Harvey MD - Which has been quite severe lately given situational stress. Her naturopathic provider had suggested she trial Sonata but had wanted me to weigh in regarding that. I told him we will have her trial it, just not use it nightly, not for more than 2 consecutive weeks. Rx done. Problem Code: G47.00; Problem Code Type: ICD-10; Not Available [facility] 3 05:49:40 Acute sinusitis Active 2023 [place], [facility]- [address], [place], [address] , [place] - [facility]. 4 12:59:38 Fatigue Active [address], [place], [address] , [facility]. 4 08:07:24 Problem Notes None recorded. Procedures Surgical History None recorded. Imaging Results Imaging Date Name Status LastModified by Organiz ation Details LastModified Time 03/13/2023 ultrasound imaging report completed [email or web address] [facility] [address] [place] [address] [place], [address] 03/14/2023 14:37:17 03/21/2023 CT imaging report completed [email or web address] [address] [place], [address] 09/07/2023 13:20:37 09/18/2023 MRI, brain, w/wo contrast completed [email or web address] [place] [address] [address] [facility], [place], [address], 09/21/2023 15:57:13 Procedure Notes None recorded. Medical Equipment None Reported. Allergies Allergen ID Allergen Name Allergen Category Reaction Reaction Severity Criticality Documentation Date Start Date Code Code System Note Provider Name and Address Organization Details Recorded Time 31213 codeine medicatio n nausea moderate Not available 02/09/20232020 2670 RxNorm nause a Aller gyCod e: '0040 93866 32'; Aller gyNam e: 'CODE INE'; Aller gyCon ceptT ype: 'NDC' ; Not Available [facility] 3 16:26:22 Medications Name Sig Start Date Stop Date Status Note LastModified by Organization Details LastModified Time methylpheni date 5 mg tablet TAKE 1 TABLET BY MOUTH IN THE MORNING FOR 1 TO 2 DAYS IF NO EFFECT THEN TAKE 2 TABLETS IN THE MORNING CAN INCREASE TO 3 IN THE MORNING OR 2 03/12 completed Not Available Not Available Not Available valacyclovi r 500 mg tablet TAKE 1 TABLET BY MOUTH ONCE A DAY,CAN INCREASE TO TWICE A DAY FOR 5-7 DAYS WITH AN OUTBREAK active Not Available Not Available No t Available Vitamin D3 10 mcg (400 unit) tablet Take 1 tablet by mouth once a day 04/15 completed Not Available Not Available Not Available benzonatate 100 mg capsule take 1 capsule by oral route 3 times every day as needed for cough 03/12 completed Not Available Not Available Not Available pseudoephed rine 30 mg tablet Take 1 tablet every day by oral route. 08/06 completed Not Available Not Available Not Available acyclovir 200 mg capsule Take 1 capsule by mouth twice a day as needed for herpes outbreak 11/21 completed Not Available Not Available Not Available zaleplon 5 mg capsule TAKE ONE CAPSULE BY MOUTH AT BEDTIME CAN INCREASE TO TWO CAPSULES AT BEDTIME IF NEEDED AVOID USE NIGHTLY AND DO NOT USE FOR MORE THAN 2 CONS 03/12 completed Not Available Not Available Not Available albuterol sulfate HFA 90 mcg/actuati on aerosol inhaler inhale 2 puff by inhalatio n route every 4 - 6 hours as needed 03/12 completed Not Available Not Available Not Available fluticasone propionate 50 mcg/actuati on nasal spray,suspe nsion [place] 1 spray every day by intranasa l route. active Not Available Not Available No t Available Fish Oil 120 mg-180 mg capsule Take 1 capsule by mouth once a day active Not Available Not Available No t Available Multivitami n 50 Plus tablet Take 1 tablet by mouth once a day active Not Available Not Available No t Available berberine-h erbal comb no.18 Take 1 tablet by mouth once a day active Not Available Not Available No t Available magnesium gluconate 27 mg magnesium (500 mg) tablet Take 1 tablet by mouth once a day 11/03 completed Not Available Not Available Not Available lisdexamfet amine 20 mg capsule TAKE ONE CAPSULE BY MOUTH EVERY MORNING 03/12 completed Not Available Not Available Not Available Vitamin D3 125 mcg (5,000 unit) tablet Take 1 tablet by mouth once a week twice a week in winter months active Not Available Not Available No t Available vitamin K2 40 mcg tablet Take 1 tablet by mouth once a day 03/03 completed Not Available Not Available Not Available Vyvanse 10 mg capsule start with 1 tablet in the AM - if no adverse effects can increase to 2 tabs in the AM in a few days. You can go up to 3 tabs in the AM if needed. 2022 active Not Available Not Available Not Avai lable Flowflex COVID-19 Antigen Home Test kit use as directed 03/12 completed Not Available Not Available Not Available Paxlovid 300 mg (150 mg x 2)-100 mg tablets in a dose pack take 3 tablets by mouth ( yellow side ) every morning and 3 tablets ( blue side ) every evening 03/12 completed Not Available Not Available Not Available Vitals Date Recorded Body height Heart rate Systolic blood pressure Diastolic blood pressure Provider Name and Address Organization Details Last Updated DateTime 03/12/2023 170.1038 cm 64 /min 118 mm[Hg] 64 mm[Hg] MADISON CABRERA LPN [facility] 03/12/2023 09:24:45 Date Recorded Body height Body mass index (BMI) Body weight Oxygen saturation Oxygen saturation in Arterial blood by Pulse oximetry Heart rate Systolic blood pressure Diastolic blood pressure Provider Name and Address Organization Details Last Updated DateTime 4 170.103 8 cm 22.1 kg/m2 98063.5 2 g 97 % 97 % 66 /min 104 mm[Hg] 70 mm[Hg] Matthew Zarate MA [facility] 4 11:29:04 Date Recorded Body height Body mass index (BMI) Body weight Oxygen saturation Oxygen saturation in Arterial blood by Pulse oximetry Heart rate Systolic blood pressure Diastolic blood pressure Provider Name and Address Organization Details Last Updated DateTime 4 170.103 8 cm 22.1 kg/m2 49785.5 2 g 96 % 96 % 83 /min 100 mm[Hg] 64 mm[Hg] Matthew Zarate MA [facility] 4 08:43:03 Social History Question Answer Notes LastModified by Organizat ion Details LastModified Time Tobacco Smoking Status Never Smoker Matthew Zarate MA [facility], [facility] 07/02/2023 11:27:07 What Was The Date Of Your Most Recent Tobacco Screening? 07/02/2023 [email or web address] Information not available 07/02/2023 Do You Or Have You Ever Used Any Other Forms Of Tobacco Or Nicotine? No [email or web address] Information not available 07/02/2023 Sex: Female Functional Status None recorded. Mental Status None recorded. Family History Relationship Description Onset Age of this Age Resolved Age Notes Mother Family history of osteoporosis Glaucoma Dementia Mother Family history of Hypertension Glaucoma Dementia Sister Family history of osteoporosis Father Family history of ischemic heart disease Notes:*Problem: Mom at 97yo, had dementia starting in her 80s, also had a breast CA in her 80's. Was on HTN meds and antidepressants. Osteoporisis Dad had several OR's before he at 74,,FIrst OR in 60's smoker, excessive Etoh 2 full sisters, 1 1/2 sister - osteoporosis Son with autoimmune disorder - psorasis, ankylosing spondylitis, daughter has the gene for it but no symptoms Medical History No medical history recorded. Gynecological HistoryNo gynecological history recorded. Obstetrics History GPAL:G 0 P 0 0 0 0 Immunizations Vaccine Type Date Status Provider Name and Address Organization Details Recorded Time MMR 04/02/2019 completed Not Available [facility] 06:02:05 Td(adult) unspecified formulation 04/02/2017 completed Not Available [facility] 02/09/2023 06:02:05 zoster recombinant 04/15/2021 completed Not Available [facility] 02/09/2023 06:02:05 zoster recombinant 06/14/2021 completed Not Available [facility] 02/09/2023 06:02:06 SARS-COV-2 (COVID-19) vaccine, UNSPECIFIED 07/03/2020 completed Not Available [facility] 02/09/2023 06:02:06 SARS-COV-2 (COVID-19) vaccine, UNSPECIFIED 07/26/2020 completed Not Available [facility] 02/09/2023 06:02:06 SARS-COV-2 (COVID-19) vaccine, UNSPECIFIED 02/11/2021 completed Not Available [facility] 02/09/2023 06:02:06 influenza, unspecified formulation 12/02/2019 completed Not Available [facility] 02/09/2023 06:02:06 influenza, unspecified formulation 12/30/2020 completed Not Available [facility] 02/09/2023 06:02:06 Influenza, split virus, quadrivalent, PF 12/20/2022 completed Not Available [facility] 04/13/2023 05:33:18 Past Encounters Encounter ID Performer Location Encounter Start Date Encounter Closed Date Diagnosis/Indication Diagnosis SNOMED-CT Code [id number] SHYANNE VARGAS [address] [address] 03/12/2023 08:58:03 03/12/2023 10:21:59 Mass of neck [id number] Muscle pain [id number] Fatigue 35438578 Persistent insomnia 1919 [id number] PROSPER LAI, [facility] [address] [place] [address] 07/02/2023 11:05:25 07/02/2023 12:04:11 Acute sinusitis [id number] Insomnia [id number] CATHERINE HARVEY MD [facility] [address] [place] [address] 08/07/2023 08:28:09 08/07/2023 09:46:23 Acute sinusitis [id number] Adult heal th examination [id number] Fatigue 06277221 Insomnia 432491868 Anxiety 18250484 Health Concerns Section Related Observation LastModified by Organization Detai ls LastModified Time None Recorded Concern Status LastModified by Organization Details LastModified Time None Recorded Advance Directives Directive None Recorded Payers Encounter Date Sequence Insurance Name Policy Number Policy Ward Covered Member ID Ward Member ID Guarantor Name 03/12/2023 1 [place] [employer] Maddi I Spring-Bur ak [id number] Maddi I Spring-Davey 07/02/2023 1 [place] Maddi I [place] [id number] Maddi I [place]y 07/02/2023 2 [place] [facility] BLUE PLAN F (MEDICARE SUPPLEMENT) [id number] Maddi I Spring-[place] ak [id number] Maddi I [place]y 08/07/2023 1 [place] Maddi I [place] [id number] Maddi I [place]y 08/07/2023 2 [place] [facility] BLUE [facility]AN F (MEDICARE SUPPLEMENT) [id number] Maddi I Spring-[place] ak [id number] Maddi I Spring-Davey Notes Date Note Type Note Provider Name and Address Organization Details Recorded Time 03/12/2023 text/html HPI Notes: 62-year-old woman here for multiple complaints; ? Complaining of insomnia, typically is able to go to sleep without difficulty, but frequently wakes up around 2 AM has difficulty falling back to sleep, this occurs a couple of nights per week only getting 4-4 and half hours of sleep, some nights 6-1/2 hours. Denies snoring but moans in her sleep. Does wake up fatigued at times. She tried a prescription medication that did not work. She used melatonin last night with a half of Tylenol PM which seem to work. Normally she had been taking Tylenol PM nightly but makes her feel groggy in the morning. She just moved into a noisy apartment, feels that she is getting used to the normal noises. She has eliminated caffeine in the afternoon, she does have typically 2 glasses of wine in the evening which in the past she used cut back on and it did not seem to improve. The symptoms started last summer when she was having marital issues they have seemed to resolve. Take magnesium at bedtime. No PH or FH TJ. She would like further evaluation on a lymph node calcified that she has had for a number of years in the left jaw it has not gotten bigger but it causes her to worry. Denies pain. She is also complaining of left neck shoulder muscle stiffness, was referred to physical therapy had 1 session and just started doing home exercise. Says she has a history of lordosis and scoliosis. She does use some [id number] medications to help with some of her symptoms. She is asking to have her thyroid level checked today. FRANCA NEGRON, SENIOR DOT NET DEVELOPER [address], [place], [address], [facility]. 03/12/2023 11:47:11 07/02/2023 text/html HPI Notes: [place] 3[place] ago; last week there got v sick with GI symptoms/diarrhea, seen at local clinic, given IV fluids, labs drawn, stool studies showed E.coli. Her GI symptoms have completely resolved, but she then developed URI symptoms with R sided headache and sinus pressure. She started Sudafed and Flonase last week, and these symptoms are also significantly improved as of this morning. She denies fever/chills, n/v/d/c, nasal stuffiness. She does continue to experience difficulty sleeping, has tried many things, including various sleep meds, melatonin, mediation, yoga. Has not been exercising as regularly as she used to, does practice yoga 4d/week, but little cardiovascular exercise. Calm Mg supplement helped for a while, but has stopped working. She will often listen to Salvatore Yuliet medications on her phone, but this exposes her to light from her phone and earphones briefly. Last night she woke at 2am, was up til 4:30 Just got RISE mushroom cocoa, which she has not yet tried. She did drink extra coffee yesterday, full caf instead of her usual half decaf. Has multiple things on her mind: they just bought an unfurnished camp, recent visits to children and grandkids in [place] and [place], possible upcoming trip to the [facility] [employer]... PROSPER SPENCE, [facility] [address], [place], [address], [facility]. 07/02/2023 13:06:03 08/07/2023 text/html HPI Notes: Mandi here today for f/u of ongoing sinus issues, some fatigue/chronic insomnia CATHERINE HARVEY MD [address], [place], [address], [facility]. 08/12/2023 08:12:56 OBGyn Episode No OBEpisode recorded.
--- OUTSIDE RECORDS SUMMARY | 2023-11-01 14:58 | XMS_ITS | Continuity of Care Document ---
Author Organization [facility] Address [address] [place] [address] Care Team Providers Care Hydrogen Operator Name Role Phone Jada Ventura Primary Care Physician Sydnie Jeff Unavailable Unavailable Preeti Navarro Unavailable Unavailable Encounter [facility] [id number] Date(s): 08/22/23 - 08/22/[address] [address] Discharge Disposition: Home or Self Care Attending Physician: Greg Jeff DO Admitting Physician: Greg Jeff DO Referring Physician: Jada Ventura Allergies, Adverse Reactions, Alerts Substance Criticality Severity Reaction Reaction Severity Status codeine Unable to assess criticality Unknown Active Beef Unable to assess criticality Unknown Active Functional Status 08/22/23 Living Situation Home independently ADLs Independent Medications Berberine Berberine, 1 tab, Oral, Daily, 0 Refill(s) Start Date: 05/14/23 Status: Ordered Fish Oil oral capsule 1 cap, Oral, Daily, # 100 cap, 0 Refill(s) Start Date: 05/14/23 Status: Ordered multivitamin adult, oral tablet 1 tab, Oral, Daily, # 90 tab, 0 Refill(s) Start Date: 05/14/23 Status: Ordered valACYclovir 500 mg oral tablet 500 mg = 1 tab, Oral, Daily, increase to twice daily for 5-7 days with an outbreak, # 60 tab, 0 Refill(s) Start Date: 05/14/23 Status: Ordered Vitamin B Complex oral capsule 1 cap, Oral, Daily, # 90 cap, 0 Refill(s) Start Date: 08/07/23 Status: Ordered Vitamin C 250 mg oral tablet 250 mg = 1 tab, Oral, Daily, # 90 tab, 0 Refill(s) Start Date: 08/07/23 Status: Ordered Vitamin D3 125 mcg (5000 intl units) oral tablet, disintegrating 125 mcg = 1 tab, Oral, every week, 0 Refill(s) Start Date: 05/14/23 Status: Ordered Problem List Condition Confirmation Course Effective Dates Status H ealth Status Informant Abdominal discomfort Confirmed Active ADHD - Attention deficit disorder with hyperactivity Confirmed Active Alpha-gal syndrome Confirmed Active Situational Anxiety Confirmed Active Arthritis Confirmed Active Herpes simplex Confirmed Active High cholesterol Confirmed Active Insomnia Confirmed Active Low back pain Confirmed Active Pain in left arm Confirmed Active Shingles Confirmed Active Tick bite Confirmed Active Procedures Procedure Date Related Diagnosis Body Site Status Colonoscopy Completed ORIF - Open reduction of fra cture of ankle with internal fixation 1 Complet ed Tonsillectomy Completed 1righ ankle Vital Signs Most recent to oldest [Reference Range]: 1 2 Temperature Temporal Artery [36-38 Deg C ] 36.2 Deg C (08/22/23 1:31 PM) 36.4 Deg C (08/22/23 12:00 PM) Temperature Temporal Artery (DegF) [97.3-100 Deg F] 97.16 Deg F *LOW* (08/22/23 1:31 PM) Apical Heart Rate [60-100 bpm] 80 bpm (08/22/23 1:31 PM) 76 bpm 1 (08/22/23 12:00 PM) Respiratory Rate [12-24 br/min] 19 br/mi n (08/22/23 1:31 PM) 12 br/min (08/22/23 12:00 PM) Blood Pressure [90-140/60-90 mmHg] 110/8 7mmHg (08/22/23 1:31 PM) 110/69mmHg (08/22/23 12:00 PM) Mean Arterial Pressure, Cuff [65-140 mmH g] 95 mmHg (08/22/23 1:31 PM) Height 170.18 cm (08/22/23 12:00 PM) Weight 62.60 kg (08/22/23 12:00 PM) 1Result Comment: heart rate regular Social History Social History Type Response Smoking Status Smoking tobacco use: Never tobacco user;Never entered on: 05/14/23 Sex Female Discharge instructions * Ros Batista RN: PERFORM Event Display: Discharge Instructions Authored Date: [id number] ALBARO BLUM I :1960 Age:63 years Sex:Female Visit Date:08/22/2023 Primary Care Physician: [facility] Discharge Instructions We would like to thank you for allowing us to assist you with your healthcare needs. The following includes patient education materials and information regarding your injury/illness. Your Next Steps Instructions From Your Care Team Call for any increasing abdominal discomfort. ?? He should not need another colonoscopy for 10 years unless you were to develop symptoms. ?? No driving or operating dangerous machinery for??24 hours. ?? Diet as tolerated. Medications What How Much When Instructions Next Dose Unchanged ascorbic acid (Vitamin C 250 mg oral tablet) 1 tab Oral (given by mouth) Every day Unchanged cholecalciferol (Vitamin D3 125 mcg (5000 intl units) oral tablet, disintegrating) 1 tab Oral (given by mouth) Every week Unchanged multivitamin (multivitamin adult, oral tablet) 1 tab Oral (given by mouth) Every day Unchanged multivitamin (Vitamin B Complex oral capsule) 1 Capsules Oral (given by mouth) Every day Unchanged omega-3 polyunsaturated fatty acids (Fish Oil oral capsule) 1 Capsules Oral (given by mouth) Every day Unchanged Other Prescription (Berberine) 1 tab Oral (given by mouth) Every day Unchanged valACYclovir (valACYclovir 500 mg oral tablet) 1 tab Oral (given by mouth) Every day increase to twice daily for 5-7 days with an outbreak ?? Your Summary Your Care Team Admitting Physician - Greg Jeff DO Attending Physician - Greg Jeff DO Primary Care Physician - Jada Ventura Referring Physician - Jada Ventura Problems Ongoing - Any problem that you are currently receiving treatment for. Abdominal discomfort ADHD - Attention deficit disorder with hyperactivity Alpha-gal syndrome Arthritis Herpes simplex High cholesterol Insomnia Low back pain Pain in left arm Shingles Situational Anxiety Tick bite Discharge Vitals Temperature??(Temporal Artery) 97.2 ??F (36.2 ??C) Heart Rate??(Apical) 80 Respiratory Rate?? 19 Blood Pressure?? 110/87?? SpO2?? 100% Height?? 67.00 in (170.18 cm) Weight?? 138.03 lb (62.60 kg) Allergies Beef codeine Patient/Sap Portal Consultant Signature Patient Name:ALBARO BLUM I I have received this information and my questions have been answered. Patient/Sap Portal Consultant Name: Patient/Sap Portal Consultant Signature: Relationship to Patient: Witness Name/Signature: Date: Electronically Signed on: 08/22/2023 13:52 EDT Signed by:JUAN DAVID History and physical note * Rochelle Ramirez: PERFORM Event Display: History and Physical Update Authored Date: [id number] * Greg Jeff DO: PERFORM Event Display: History and Physical Authored Date: [id number] ALBARO BLUM I :1960 Age:63 years Sex:Female Visit Date:08/22/2023 Primary Care Physician: Jada Ventura Chief Complaint she is here for a colonoscopy History of Present Illness The patient is here for screening colonoscopy. ??Her last colonoscopy was 11 years ago.?? She has had no change in her bowel habits and she has had??no blood in her stool. Review of Systems Her biggest issue at this time is she has headaches??which are felt to be related to her sinuses.??She is scheduled to see an pattern attendant in the near future.?? She denies any chest pain or shortness of breath. Physical Exam Vitals & Measurements T:??36.4?C ??(Temporal Artery)?? HR:??76??(Apical)?? RR:??12?? BP:??110/69?? SpO2:??100%?? HT:??170.18??cm?? WT:??62.60??kg?? Pain Score:??0?? O2 Therapy:??Room air?? Heart is regular. ??Lungs are clear and equal.?? Abdomen is soft and nontender with no masses. Assessment/Plan Patient for colonoscopy for screening purposes. ??We have gone over the procedure and the risk of perforation and bleeding.?? The patient understands and is ready to proceed. Problem List/Past Medical History Ongoing Abdominal discomfort ADHD - Attention deficit disorder with hyperactivity Alpha-gal syndrome Arthritis Herpes simplex High cholesterol Insomnia Low back pain Pain in left arm Shingles Situational Anxiety Tick bite Historical No qualifying data Procedure/Surgical History ???Colonoscopy???ORIF - Open reduction of fracture of ankle with internal fixation???Tonsillectomy Medications Inpatient Electrolyte Solution (Plasma-Lyte/Normosol-R/Isolyte S) intravenous solution 1,000 mL, 1000 mL, IV Home Berberine, 1 tab, Oral, Daily Fish Oil oral capsule, 1 cap, Oral, Daily multivitamin adult, oral tablet, 1 tab, Oral, Daily valACYclovir 500 mg oral tablet, 500 mg= 1 tab, Oral, Daily Vitamin B Complex oral capsule, 1 cap, Oral, Daily Vitamin C 250 mg oral tablet, 250 mg= 1 tab, Oral, Daily Vitamin D3 125 mcg (5000 intl units) oral tablet, disintegrating, 125 mcg= 1 tab, Oral, every week Allergies Beef codeine Social History Alcohol 1-2 times per week Electronic Cigarette/Vaping Electronic Cigarette Use: Never. Substance Use Never- Comments: None per patient Tobacco Never tobacco user Tobacco Use:. Never Smokeless Tobacco use:. Electronically Signed on 08/22/2023 12:51 EDT Greg Jeff DO Patient Care team information Care Team Personnel Name: Jada Ventura Position: No Access Member Role: Primary Care Physician Address: Address: [address] [place] [id number] [place] [address] Name: Sydnie Jeff Position: Ambulatory - Motor Lodge Clerk Member Role: Motor Lodge Clerk Name: Preeti Navarro Position: Ambulatory - Motor Lodge Clerk Member Role: Motor Lodge Clerk Care Team Related Persons Name: ANA VELAZQUEZ Address: [place] [address]
--- OUTSIDE RECORDS SUMMARY | 2023-11-01 14:59 | XMS_ITS | Encounter Summary ---
Author Organization [facility] Address [facility] [place] [address] Care Team Providers Care Chef Kitchen Manager Name Role Phone Unknown Primary Care Provider Unavailabl e Reason for Visit * Reason Comments Skin Check Encounter Details Date Type Department Care Team (Late st Contact Info) Description 09/30/2014 10:00 AM EDT Office Visit Dermatology at [facility] [address] [place] [address] [facility] [address] [place] [address] [facility] [address] [place] [address] [place] (actinic keratosis); Lentigines; Winters angioma; Acne rosacea Discharge Disposition: Home Social History Tobacco Use Types Packs/Day Years Used Date Smoking Tobacco: Never Sex and Gender Information Value Date Recorded Sex Assigned at Not on file Gender Identity Not on file Sexual Orientation Not on file documented as of this encounter Progress Notes * Jessi Kelly MD - 09/30/2014 3:12 PM EDT Rosacea on forehead Patient seen in conjunction with Donita Wilkerson PA-C Signed by: Jessi Kelly MD Section of Dermatology [facility] * Donita Wilkerson PA - 09/30/2014 10:25 AM EDT DERMATOLOGY - NEW PATIENT NOTE Date of service: 09/30/2014 Mandi Taylor : 1960 Dermatology Physician [place] Lacer Note: Donita Wilkerson PA-C Chief Complaint Patient presents with ??? Skin Check Ms. Mandi Taylor is a 54 y.o. female. This is a new patient to me and to the clinic. Patient is self-referred. HPI: Ms. Taylor presents for a full skin exam. She has a rash on her forehead that started in January while she was in [place]. She [place] to [place] an antibiotic [place] sunscreen when she is in the sun. She is present today with her . Past Skin History: No known h/o melanoma No known h/o non-melanoma skin cancer No known h/o eczema, atopy No known h/o psoriasis, or other skin disease Medical History: There is no problem list on file for this patient. Procedure Screening Questions: Defibrillator/Pacemaker: No Artificial Joints: No Heart Valves: No Blood Thinners: No Prophylactic Antibiotics: No Medications: Current Outpatient Prescriptions Medication Sig Dispense Refill ??? terbinafine (LAMISIL) 250 mg tablet 250 MG = 1 Tablet(s), PO, Once daily ??? urea (CARMOL) 30 % cream 1 Appl(s), Top, Twice daily No current facility-administered medications for this visit. Allergies: Allergies Allergen Reactions ??? Codeine Family History: Father- skin cancer of unknown type. No known h/o eczema, atopy Son -h/o psoriasis, or other skin disease Social History: Occupation: Homemaker Recreation: Outdoor activities and yoga Other environmental exposures: No Has Pets: Yes Other animal exposures: No Recent Travel History: [place] Review of Systems: General: Feels well Skin: As per HPI; no other skin concerns Examination: Constitutional: Patient was pleasant, alert, well-appearing and in no noticeable distress. Skin: A full skin examination was performed. This includes the head, neck, face and scalp includingbehind the ears. The chest, abdomen, back, and axillae, as well as the arms, hands, palms, fingers.Legs, feet, toes and soles were also examined. Buttocks and breasts were also examined with patientconsent. Genitalia were not examined. Skin Type: 2 Specific skin findings: 1. Right cheek, left malar: 0.2-0.3cm scaly irregular pink papule(s) 2. Scattered red papules/pustules on forehead extending to central face with diffuse erythema and telangiectasia 3. Occasional 0.2-0.4cm bright red, well-demarcated papules 4. Sun exposed areas: 0.3-0.6cm light-brown evenly pigmented, well-demarcated macules Diagnosis/Assessment/Treatment Plan: 1. Actinic Keratosis: I discussed this condition with the patient and explored therapeutic options.I recommended this be treated with LN2, patient is in agreement to this treatment plan. Instructed to call if areas do not resolve as expected or if problems arise. If lesions fail to resolve, further work-up may be needed. Procedure Note: Procedure: Destruction of lesion(s) with cryotherapy. Number: 2 Location: as above Discussed procedure and expectations including risks (including risk of hypopigmentation) and benefits. Verbal consent obtained. Frozen with LN2, 15-30 second thaw time, TWICE. There were no complications; the patient tolerated the procedure well. Post-procedure expectations and wound care were reviewed. 2. Rosacea (Acne rosacea): I discussed this condition with the patient and explored therapeutic options. Advised chronic in nature and need for measures to control rather than cure. Recommendations: Klaron 10% Suspension;apply twice daily for 4 weeks, will reevaluate at follow up visit. Will work toward once daily for maintenance RX sent to [facility] in [place], [place] Follow up visit in 4-6 weeks 3. Winters Angioma(s): Discussed benign nature of lesion and provided reassurance. No treatment necessary at this time. Observe skin for change in color, size or character. Call if such occur. 4. Lentigines: Discussed benign nature of lesion and provided reassurance. No treatment necessary at this time. Observe skin for change in color, size or character. Call if such occur. LOS: [id number] RTC in 4-6 weeks for follow up for rosacea or PRN if symptoms worsen or persist. Appointment scheduled upon exiting. Instructed to call with questions or concerns. Note initiated by Nilsa Reddy, Clinical Scribe I am documenting this encounter acting as the scribe for and in the presence of Donita Wilkerson PA-C I performed the above scribed service and agree with the accuracy of the documentation in this encounter. Reviewed and signed by Donita Wilkerson PA-C Dermatology [facility] Patient seen in conjunction with/supervision of Attending Physician: Jessi Kelly MD Section of Dermatology [facility] documented in this encounter Plan of Treatment Not on file documented as of this encounter Visit Diagnoses Diagnosis AK (actinic keratosis) Actinic keratosis Lentigines Other dyschromia Winters angioma Nevus, non-neoplastic Acne rosacea Rosacea documented in this encounter Care Teams Chef Kitchen Manager Relationship Specialty Start Date End Date Unknown None PCP - General 09/30/14 11/29/17 documented as of this encounter
--- OUTSIDE RECORDS SUMMARY | 2023-11-01 14:59 | XMS_ITS | Encounter Summary ---
Author Organization [facility] Address [facility] [address] [place] [address] Care Team Providers Care President Sales And Marketing Name Role Phone Unknown Primary Care Provider Unavailabl e Encounter Details Date Type Department Care Team (Late st Contact Info) Description 04/18/2016 Ancillary Procedure [place] [address] Jasmyn Us ND [address] [place] [address] Social History Tobacco Use Types Packs/Day Years Used Date Smoking Tobacco: Never Sex and Gender Information Value Date Recorded Sex Assigned at Not on file Gender Identity Not on file Sexual Orientation Not on file documented as of this encounter Plan of Treatment Not on file documented as of this encounter Procedures Procedure Name Priority Date/Time Associated Diagnosis Comments FILM LIBRARY STORAGE ONLY MAMMO Routine 04/18/2016 12:00 AM EST documented in this encounter Results * Film Library- Storage Only Mammo (04/18/2016 12:00 AM EST) Narrative [facility] - 09/17/2020 4:51 PM EDT This exam is auto-finalizing. It's purpose is for storage only. Jasmyn Us ND IM FILM LIBRARY ORD ERABLES [place], [place] documented in this encounter Visit Diagnoses Not on filedocumented in this encounter Care Teams President Sales And Marketing Relationship Specialty Start Date End Date Unknown None PCP - General 09/30/14 11/29/17 documented as of this encounter
--- OUTSIDE RECORDS SUMMARY | 2023-11-01 14:59 | XMS_ITS | Encounter Summary ---
Author Organization [facility] Address [facility] [place] [address] Care Team Providers Care Toolmaker Helper Name Role Phone Yelena Tobias MD Primary Care Provider [phone] Encounter Details Date Type Department Care Team (Late st Contact Info) Description 04/22/2013 Ancillary Procedure [place] [address] Jasmyn Us, MARGARET [address] [place] [address] Social History Tobacco Use Types Packs/Day Years Used Date Smoking Tobacco: Never Assessed Sex and Gender Information Value Date Recorded Sex Assigned at Not on file Gender Identity Not on file Sexual Orientation Not on file documented as of this encounter Plan of Treatment Not on file documented as of this encounter Procedures Procedure Name Priority Date/Time Associated Diagnosis Comments FILM LIBRARY STORAGE ONLY MAMMO Routine 04/22/2013 12:00 AM EST documented in this encounter Results * Film Library- Storage Only Mammo (04/22/2013 12:00 AM EST) Narrative [facility] - 09/17/2020 4:51 PM EDT This exam is auto-finalizing. It's purpose is for storage only. Jasmyn Us ND IM FILM LIBRARY ORD ERABLES [facility] [place], [place] documented in this encounter Visit Diagnoses Not on filedocumented in this encounter Care Teams Toolmaker Helper Relationship Specialty Start Date End Date Yelena Tobias MD [address] [place] [address] PCP - General 02/22/10 09/29/14 documented as of this encounter
--- OUTSIDE RECORDS SUMMARY | 2023-11-01 14:59 | XMS_ITS | Encounter Summary ---
Author Organization [facility] Address [address] [place] [address] Care Team Providers Care Follow Up Specialist Name Role Phone Unavailable Primary Care Provider Unavailabl e Encounter Details Date Type Department Care Team ([facility] st Contact Info) Description 05/28/2000 Results Only [facility] - Maple conversion [address] [place] [address] Erinn Dawson, DAMIR Social History Tobacco Use Types Packs/Day Years Used Date Smoking Tobacco: Never Assessed Sex and Gender Information Value Date Recorded Sex Assigned at Not on file Gender Identity Female 08/21/2019 9:47 EDT Sexual Orientation Not on file documented as of this encounter Plan of Treatment Not on file documented as of this encounter Procedures Procedure Name Priority Date/Time Associated Diagnosis Comments CYTOPATHOLOGY Routine 05/28/2000 0:00 EST documented in this encounter Results * CYTOPATHOLOGY (05/28/2000 0:00 EST) Pathology Report: CYTOPATHOLOGY REPORT Reports generated via electronic interface contain original data; however they are lacking the format of the original report. Caution should be taken when reading/interpreti ng unformatted reports. Name: ? ALBARO BLOOM ? Accession #: ? [id number] : ? 1960 (Age: 40) ??F ?Collect Date: ? 05/28/2000 Location: ? [facility] ? Receive Date: ? 05/30/2000 Provider: ?ERINN DAWSON [place] FLOORS INSTALLER Copy to: ? Specimen/Source: ?ThinPrep Pap Test, Cervix/Endocervix Last Menstrual Period: ? 05/11/00 ? SPECIMEN ADEQUACY ? Satisfactory for evaluation. GENERAL CATEGORIZATION ? Within Normal Limits ? Document reviewed and electronically signed by: ? Jane Rain, ??SCT(ASCP) ? Report Date: ??05/30/2000 14:02 End of Report [facility] 05/28/2000 05/30/2000 Erinn Dawson NP PATHOLOGY ORDERABLES [facility] [address] [place] [address] documented in this encounter Visit Diagnoses Not on filedocumented in this encounter
--- OUTSIDE RECORDS SUMMARY | 2023-11-01 14:59 | XMS_ITS | Encounter Summary ---
Author Organization Counts Include [address] [facility] Address [facility] [place] [address] Care Team Providers Care Stove Mounter Name Role Phone Jasmyn Us ND Primary Care Provider [phone] Reason for Visit * Reason Comments Skin Lesion right cheek Skin Check Encounter Details Date Type Department Care Team (Late st Contact Info) Description 12/09/2018 10:30 AM EDT Office Visit Dermatology at [facility] [address] [place] [id number] Jojo Lin MD [facility] [place] [address] Neoplasm of uncertain behavior of skin; Seborrheic keratoses Social History Tobacco Use Types Packs/Day Years Used Date Smoking Tobacco: Never Smokeless Tobacco: Never Sex and Gender Information Value Date Recorded Sex Assigned at Not on file Gender Identity Not on file Sexual Orientation Not on file documented as of this encounter Progress Notes * Jojo Lin MD - 12/09/2018 10:30 AM EDT Images from the original note were not included. DERMATOLOGY AT [facility] Dermatology At [facility] [address] [facility] [address] FOLLOW-UP Date of service: 12/09/2018 Maddi Taylor : 1960 Provider: Jojo Lin MD Preferred name: Mandi Preferred contact method with results: [id number] Message okay: Yes ? SKIN HISTORY: Wears SPF 30 - not daily (better early in summer, worse later in summer) Family h/o NMSC - father Skin Tags ?? Chief Complaint: Concerning skin lesion and full skin exam History of Present Illness Maddi Taylor is a 58 y.o. female. Established patient, last seen 11/30/17. Here today for a concerning skin lesion and a full skin exam. Pt notes that she has a skin lesion on the right cheek present for about 3.5 weeks. Pt denies any itching, bleeding, or tenderness to the area. Medical History Non contributory Allergies Codeine Medications Current Outpatient Medications Medication Sig Dispense Refill ??? Sulfacetamide Sodium, Acne, (KLARON) 10 % Suspension Apply twice daily for 4 weeks, working toward once daily for maintenance. (Patient not taking: Reported on 11/30/2017) 118 mL 3 ??? terbinafine (LAMISIL) 250 mg tablet 250 MG = 1 Tablet(s), PO, Once daily (Patient not taking: No sig reported) ??? urea (CARMOL) 30 % cream 1 Appl(s), Top, Twice daily (Patient not taking: No sig reported) No current facility-administered medications for this visit. Family History Father - NMSC ?? Social History - here today Wears SPF 30 - not daily Bicycling Review of Systems General: feeling well Skin: denies other skin complaints Examination General: NAD, pleasant, cooperative. Type of exam: The patient was asked to disrobe to the level of their comfort. Full skin examination of the scalp, hair, head, face, neck, back, chest, abdomen, right and left upper extremities, right and left lower extremities and buttocks was normal with the exception of the findings listed below. Genitalia not examined. Significant skin findings: ?? Right cheek: vascular ectasias with little scaling and little rounded border/ elevation ?? Back: multiple 0.4-0.6cm brown papules with waxy, stuck-on appearance. Images Photos taken and charted with patient consent: ASSESSMENT/PLAN: Neoplasm of Uncertain Behavior Ddx: AK vs SCCIS vs BCC I discussed this condition with the patient and explored therapeutic options. I recommended we do apunch biopsy, joint decision made to proceed with skin biopsy for further diagnostic information. Punch biopsy: 2 mm Location: Right cheek Suture: 5 - 0 Prolene The patient's consent was obtained. Risk of infection, scarring, nerve damage, pigment change, numbness, incomplete removal, recurrence, bleeding, pain and uncommonly so, allergic reaction to anesthesia were all reviewed. Sterile preparation was used. Anesthesia obtained with 1% lidocaine with epinephrine. A punch biopsy was obtained and closed with simple interrupted sutures. The specimen was sent to pathology for histologic evaluation. Vaseline and bandaid were applied. Wound care was reviewed. S/R in 7 days. Seborrheic Keratoses - Benign. No treatment necessary. - Reassured about benign nature and natural history. RTC Pending pathology. 1 year for a full skin exam or sooner as needed. Reminder placed in scheduling system. Note initiated and routed to physician for review and change by: JEREMIAH Potter I, Celestino Bell, have performed the documentation for this encounter in the presence of and acting as a scribe for JOJO LIN MD. I performed the services which were documented by the scribe, and I agree with the accuracy of the documentation in this encounter. JOJO LIN MD. Jojo Lin MD Section of Dermatology [facility] documented in this encounter Plan of Treatment Not on file documented as of this encounter Procedures Procedure Name Priority Date/Time Associated Diagnosis Comments SURGICAL PATHOLOGY REPORT Routine 12/09/2018 12:56 PM EDT SPECIMEN TO PATHOLOGY Routine 12/09/2018 12:56 PM EDT Neoplasm of uncertain behavior of skin documented in this encounter Results * Surgical Pathology Report (12/09/2018 12:56 PM EDT) FINAL DIAGNOSIS (AP) [id number] ? Location: [facility] The signing pathologist has (i) examined the relevant preparation(s) for the specimen(s) and (ii) rendered or confirmed the diagnosis(es). . ?Surgical Pathology DIAGNOSIS Skin, ??right check, punch ??biopsy: - ??Lichenoid actinic keratosis Electronically signed by: ??Gloria LIRIANO, Sarmad Nichols Verified: ??12/11/2018 ?Dermatopatholo gist Performed at: ??[place] [place], [place], [place] ADDITIONAL STUDIES Multiple step-leveled sections are examined. CLINICAL INFORMATION Specimen Submitted: A - Right check, skin punch,1 Clinical History and Diagnosis: Right cheek: Vascular ectasias with little scaling and little elevation. DDX: AK vs SCCIS vs BCC SPECIMEN PROCESSING A - Labeled/Fixative : Patient's name, demographics, formalin. Quantity/Size: ??Single, 0.2 cm diameter, excised to 0.2 cm. Tissue Description: Non-oriented punch biopsy of mcguire skin and subcutaneous tissue. Sections/Process ing: Submitted en toto ??in 1 cassette labeled A1. ??shb 12/11/2018 4:35 PM EDT [facility] SPECIMEN FROM SKIN / Unknown 12/09/2018 12:56 PM EDT 12/09/2018 12:56 PM EDT Jojo Lin MD PATHOLOGY/CYTOLOGY [facility] [place] [address] * Specimen to Pathology (12/09/2018 12:56 PM EDT) AP Specimen 12/09/2018 12:5 6 PM EDT 12/09/2018 5:08 PM EDT Narrative [facility] - 12/09/2018 5:08 PM EDT Specimen requisition ordered. ??Separate Pathology report to follow Resulting Agency Comment Spec In Lab Jojo Lin MD PATHOLOGY/CYTOLOGY [facility] [place] [address] documented in this encounter Visit Diagnoses Diagnosis Neoplasm of uncertain behavior of skin Seborrheic keratoses documented in this encounter Care Teams Stove Mounter Relationship Specialty Start Date End Date Jasmyn Us ND [address] [place] [address] PCP - General Naturopathic Medicine 11/30/17 11/02/21 documented as of this encounter
--- OUTSIDE RECORDS SUMMARY | 2023-11-01 14:59 | XMS_ITS | Encounter Summary ---
Author Organization [facility] Address [address] [place] [address] Care Team Providers Care Manager Grocery Name Role Phone Unknown, Provider Primary Care Provider [phone] Encounter Details Date Type Department Care Team ([facility] st Contact Info) Description 05/10/2021 Lab Requisition [facility] Pathology & Laboratory Medicine - [address] [address] Outr Resulting Lab, Provider Social History Tobacco Use Types Packs/Day Years Used Date Smoking Tobacco: Never Smokeless Tobacco: Never Interpersonal Safety Answer Date Record ed Physically Hurt Never 11/02/2019 Verbally Threaten Not on file 11/02/2019 Sex and Gender Information Value Date Recorded Sex Assigned at Not on file Gender Identity Female 08/21/2019 9:47 EDT Sexual Orientation Not on file documented as of this encounter Plan of Treatment Not on file documented as of this encounter Procedures Procedure Name Priority Date/Time Associated Diagnosis Comments CELIAC DISEASE PANEL Routine 05/10/2021 8:55 EST documented in this encounter Results * CELIAC DISEASE PANEL (05/10/2021 8:55 EST) Tissue Transglutaminase Antibody IGA <1.2 <4.0 U/mL 05/12/2021 9:10 EST [facility] Comment: A negative result may be due to IgA deficiency and does not rule out celiac disease. ? Negative: ??<4.0 U/mL ? Weak Positive: ??4.0 - 10.0 U/mL ? Positive: ??>10.0 U/mL Results were obtained with the [employer] QUANTA Lite R h-tTG IgA SADIA assay on the [employer] DSX. IgA 160 85 - 499 mg/dL 05/12/2021 9:10 EST [facility] Celiac Disease Interpretation Negative Serology. Celiac disease unlikely. Approximately 10% of patients with celiac disease are seronegative. Patients who are already adhering to a gluten-free diet may also be seronegative. If celiac disease is highly clinically suspected, referral to gastroenterology for additional evaluation is recommended. 05/12/2021 9:10 EST [facility] Blood VENOUS BLOOD / Unknown 05/10/2021 8:55 EST 05/10/2021 22:15 EST Provider Outr Resulting Lab IMMUNOLOGY A ND SEROLOGY ORDERABLES Performing Organization Address City/State/[facility] Co de Phone Number [facility] [address] [place] [address] documented in this encounter Visit Diagnoses Not on filedocumented in this encounter Care Teams Manager Grocery Relationship Specialty Start Date End Date Unknown, Provider, PCP - General 12/20/10 documented as of this encounter
--- OUTSIDE RECORDS SUMMARY | 2023-11-01 14:59 | XMS_ITS | Encounter Summary ---
Author Organization [facility] Address [facility] [place] [address] Care Team Providers Care Cnc Mechanic Name Role Phone Unavailable Primary Care Provider Unavailabl e Encounter Details Date Type Department Care Team (Late st Contact Info) Description 11/08/2009 12:05 AM EDT Ancillary Procedure [place] [address] Jasmyn Us, MARGARET [address] [place] [address] Social History Tobacco Use Types Packs/Day Years Used Date Smoking Tobacco: Never Assessed Sex and Gender Information Value Date Recorded Sex Assigned at Not on file Gender Identity Not on file Sexual Orientation Not on file documented as of this encounter Plan of Treatment Not on file documented as of this encounter Procedures Procedure Name Priority Date/Time Associated Diagnosis Comments FILM LIBRARY-STORAGE ONLY US BREAST Routine 11/08/2009 12:05 AM EDT documented in this encounter Results * Film Library Storage Only US Breast (11/08/2009 12:05 AM EDT) Narrative [facility] - 09/17/2020 4:50 PM EDT This exam is auto-finalizing. It's purpose is for storage only. Jasmyn Us ND [facility] FILM LIBRARY ORD ERABLES [facility] ID documented in this encounter Visit Diagnoses Not on filedocumented in this encounter
--- OUTSIDE RECORDS SUMMARY | 2023-11-01 14:59 | XMS_ITS | Encounter Summary ---
Author Organization [facility] Address [address] [place] [address] Care Team Providers Care Collection Support Specialist Name Role Phone Unavailable Primary Care Provider Unavailabl e Encounter Details Date Type Department Care Team ([facility] st Contact Info) Description 08/23/2004 Results Only [facility] - Maple conversion [address] [place] [address] Taylor Chase MD [address] [place] [address] [place] [address] Social History Tobacco Use Types Packs/Day Years Used Date Smoking Tobacco: Never Assessed Sex and Gender Information Value Date Recorded Sex Assigned at Not on file Gender Identity Female 08/21/2019 9:47 EDT Sexual Orientation Not on file documented as of this encounter Plan of Treatment Not on file documented as of this encounter Procedures Procedure Name Priority Date/Time Associated Diagnosis Comments CYTOPATHOLOGY Routine 08/23/2004 0:00 EDT documented in this encounter Results * CYTOPATHOLOGY (08/23/2004 0:00 EDT) Pathology Report: CYTOPATHOLOGY REPORT Reports generated via electronic interface contain original data; however they are lacking the format of the original report. Caution should be taken when reading/interpreti ng unformatted reports. Name: ? ALBARO BLOOM ? Accession #: ? [id number] : ? 1960 (Age: 44) ??F ?Collect Date: ? 08/23/2004 Location: ? [facility] ? Receive Date: ? 08/24/2004 Provider: ?TAYLOR CHASE MD Copy to: ? Specimen/Source: ?ThinPrep Pap Test, Cervix/Endocervix Last Menstrual Period: ? 08/14/04 Other: ? HPVA - HPV testing requested if ASC-US on the current ThinPrep Pap test. ? SPECIMEN ADEQUACY ? Satisfactory for Evaluation - transformation zone component present GENERAL CATEGORIZATION ? Negative for Intraepithelial Lesion or Malignancy ? Document reviewed and electronically signed by: ? Tiffani Cain, SCT(ASCP) ? Report Date: ??09/01/2004 09:40 End of Report [facility] 08/23/2004 08/24/2004 Taylor Chase MD PATHOLOGY ORDERABLES [facility] [address] [place] [address] documented in this encounter Visit Diagnoses Not on filedocumented in this encounter
--- OUTSIDE RECORDS SUMMARY | 2023-11-01 14:59 | XMS_ITS | Encounter Summary ---
Author Organization [facility] Address [facility] [place] [address] Care Team Providers Care Drill Sharpener Name Role Phone Jada Ventuar MD Primary Care Provider [phone] Encounter Details Date Type Department Care Team (Late st Contact Info) Description 11/03/2021 11:45 AM EDT Office Visit Dermatology at [facility] [address] [place] [phone] Meka Katz MD [facility] [address] [place] [address] Lentigo Social History Tobacco Use Types Packs/Day Years Used Date Smoking Tobacco: Never Smokeless Tobacco: Never Sex and Gender Information Value Date Recorded Sex Assigned at Not on file Gender Identity Not on file Sexual Orientation Not on file documented as of this encounter Progress Notes * Meka Katz MD - 11/03/2021 11:45 AM EDT Images from the original note were not included. DEPARTMENT OF DERMATOLOGY [facility] Provider: Meka Katz MD Patient's preferred name Mandi Preferred contact method for results [x]Phone []myD-H []Letter Detailed phone message OK? yes Are there any other people with whom we may discuss your care? Past Medical History Date, location, treatment Melanoma N Dysplastic nevi N SCC N BCC N AKs ln2 UV Exposure & Protection + history of blistering sunburn Other relevant past medical history Family History Details Melanoma NMSC Other relevant family history Social History Occupation: retired Hobbies: outdoors kayaking hiking. Other: Pre-Procedure Questions Details Allergy to lidocaine, epinephrine, Dermabond, chlorhexidine, or adhesives no Bleeding disorder or blood thinners no Pacemaker, defibrillator, deep brain stimulator, cochlear implant no History of Present Illness: Maddi Taylor is a 61 y.o. Patient returns to clinic today fora lesion on the right forehead dark spot, present for 2 months. Asymptomatic. Her friend who is a MD thought she should have it looked at. Last visit at Dermatology: 11/21/2019 Last visit with this provider: Visit date not found Medications: Reviewed in eD-H Allergies: Reviewed in eD-H Skin Examination: Focused skin examination of the forehead was normal with the exception of the findings below. Assessment/Plan Favor lentigo vs macular SK- light brown macule on the right forehead - We discussed that overall the findings of this lesion are not suggestive of skin cancer, more likely a benign growth such as a lentigo or macular seborrheic keratosis - Joint decision to monitor lesion and recheck at patient's full skin exam (overdue) Figure 1 Photo(s) taken and charted with patient's verbal consent. Other: ??? N/A RTC: as scheduled for next skin exam with Ramya Contreras MD []Note routed to medical records secretary []Recall placed in scheduling system []Appointment scheduled at checkout Scribe attestation: CAROLINA FLETCHER LPN has performed the documentation for this encounter in the presence of and acting as a scribe for Meka Katz MD. I performed the above scribed service and agree with the accuracy of the documentation in this encounter. Reviewed and signed by: Meka Katz MD Dermatology [facility] documented in this encounter Plan of Treatment Not on file documented as of this encounter Visit Diagnoses Diagnosis Lentigo Other dyschromia documented in this encounter Care Teams Drill Sharpener Relationship Specialty Start Date End Date Jada Ventura MD [address] [place] [address] PCP - General Family Medicine 11/03/21 documented as of this encounter
--- OUTSIDE RECORDS SUMMARY | 2023-11-01 14:59 | XMS_ITS | Continuity of Care Document ---
Author Organization [facility] Address [address] [place] [address] Care Team Providers Care Trucker Hand Name Role Phone WES CATHERINE Louisa Primary Care Physician [phone] Encounter LTTL_[place] FIN NBR [id number] Date(s): 09/18/23 - 09/18/23 [facility] [address] [place] [address]- Discharge Disposition: Home or Self Care Attending Physician: Tristian Rice DO Admitting Physician: Tristian Rice DO Referring Physician: Tristian Rice DO Allergies, Adverse Reactions, Alerts Substance Reaction Severity Status codeine Unknown Active Beef Unknown Active Medications Fish Oil oral capsule 1 cap, Oral, Daily, # 100 cap, 0 Refill(s) Start Date: 09/07/23 Status: Ordered fluticasone propionate 0 Refill(s) Start Date: 09/07/23 Status: Ordered multivitamin adult, oral tablet 1 tab, Oral, Daily, # 30 tab, 0 Refill(s) Start Date: 09/07/23 Status: Ordered valACYclovir 500 mg oral tablet 0 Refill(s) Start Date: 09/07/23 Status: Ordered Vitamin D3 125 mcg (5000 intl units) oral tablet, disintegrating 0 Refill(s) Start Date: 09/07/23 Status: Ordered Problem List Condition Confirmation Course Effective Dates Status [facility] atus Informant Chronic sinus infection Confirmed Active Headache Confirmed Active Results Radiology Reports * Exam Date Time Procedure Performing Provider Status 09/18/23 10:00 AM MRI Brain w/ + w/o Contrast Angie Mahmood; Auth (Verified) Notes: (MRI Brain w/ + w/o Contrast) Reason For Exam: chronic daily headaches MRI Brain w/ + w/o Contrast EXAM DESCRIPTION: MRI Brain w/ + w/o Contrast 09/18/2023 INDICATION: CHRONIC DAILY HEADACHES TECHNIQUE: Technique: Multiplanar MRI examination of the head including FLAIR and diffusion series. Postcontrast T1-weighted images were obtained in 3 planes. 13 mL of MultiHance contrast was utilized COMPARISON: None FINDINGS: No intracranial mass, mass effect or abnormal enhancement. Diffusion weighted images demonstrate no focal area of acute or recent infarct. No hydrocephalus, extra-axial fluid collection or blood breakdown products Small nonspecific foci of periventricular and subcortical white matter T2 signal prolongation in the frontal region bilaterally measuring a few mm size, best seen on FLAIR images. Diagnostic possibilities would include mild chronic microangiopathy, sequela of migraine headaches, vasculitic process, or possible demyelination. Cerebellar tonsil position is normal. The pituitary gland demonstrates normal morphology and signal intensity. No significant temporal horn asymmetry Visualized vascular flow voids and cranial nerves appear within normal limits. The visualized paranasal sinuses are grossly clear. IMPRESSION: No intracranial mass, mass effect or abnormal enhancement No acute or recent infarct on diffusion series Small nonspecific periventricular and subcortical white matter lesions in the frontal region bilaterally with diagnostic possibilities as detailed above. JOB #: [id number] Final Signed by: Aristeo Silverman MD Signed (Electronic Signature): 09/18/2023 10:15 am Patient Care team information Care Team Personnel Name: CATHERINE HARVEY Position: No Access Member Role: Primary Care Physician Address: Address: [address] [place] [id number] [place] Care Team Related Persons Name: ANA VELAZQUEZ Address: Home [address] [place] [address] [address] [employer] [place] [id number] [facility]
--- OUTSIDE RECORDS SUMMARY | 2023-11-01 14:59 | XMS_ITS | Encounter Summary ---
Author Organization [facility] Address [address] [place] [address] Care Team Providers Care Electronic Semiconductor Processor Name Role Phone Unknown, Provider Primary Care Provider [phone] Reason for Visit * Reason Onset Date Comments Other 10/22/2019 Encounter Details Date Type Department Care Team (Late st Contact Info) Description 10/22/2019 Telephone [facility] Orthopedics & Podiatry [address], [address] [place] [address] Tete Bravo, RN Other Social History Tobacco Use Types Packs/Day Years Used Date Smoking Tobacco: Never Smokeless Tobacco: Never Sex and Gender Information Value Date Recorded Sex Assigned at Not on file Gender Identity Female 08/21/2019 9:47 EDT Sexual Orientation Not on file COVID-19 Exposure Response Date Recorded In the last month, have you been in contact with someone who was confirmed or suspected to have Coronavirus / COVID-19? No / Unsure 10/10/2019 11:22 EDT documented as of this encounter Miscellaneous Notes * Telephone Encounter - Tete Bravo RN - 10/22/2019 1632 EDT Please schedule per TE * Telephone Encounter - Olivia Meyer DPM - 10/22/2019 8149 EDT I recommend that we should do another steroid injection, especially given the flares she is gettingwith exercise. Ok to schedule within the next few weeks. Thanks. * Telephone Encounter - Tete Bravo RN - 10/22/2019 6822 EDT Maddi called to discuss whether or not she should get another steroid shot or wait a little longer. She states that not much has changed and when she attempts to exercise the neuroma flares up. Thepad that was added to her shoe made things worse so she removed it. documented in this encounter Plan of Treatment Not on file documented as of this encounter Visit Diagnoses Not on filedocumented in this encounter Care Teams Electronic Semiconductor Processor Relationship Specialty Start Date End Date Unknown, Provider, PCP - General 12/20/10 documented as of this encounter
--- OUTSIDE RECORDS SUMMARY | 2023-11-01 14:59 | XMS_ITS | Encounter Summary ---
Author Organization [facility] Address [facility] [place] [address] Care Team Providers Care Blankmaker Name Role Phone Jasmyn Us ND Primary Care Provider [phone] Encounter Details Date Type Department Care Team (Late st Contact Info) Description 12/25/2018 12:00 PM EDT Office Visit Dermatology at [facility] [address] [place] [address] Murtaza Lin MD [facility] [address] [place] [address] AK (actinic keratosis) Social History Tobacco Use Types Packs/Day Years Used Date Smoking Tobacco: Never Smokeless Tobacco: Never Sex and Gender Information Value Date Recorded Sex Assigned at Not on file Gender Identity Not on file Sexual Orientation Not on file documented as of this encounter Progress Notes * Murtaza Lin MD - 12/25/2018 12:00 PM EDT Images from the original note were not included. DERMATOLOGY AT [facility] Dermatology At [facility] [address] [facility] [address] FOLLOW-UP Date of service: 12/25/2018 Maddi Taylor : 1960 Provider: Murtaza Lin MD Preferred name: Preferred contact method with results: Message with results on machine okay?: History of Present Illness Maddi Taylor is a 58 y.o. year old female. 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 She also has some actinic damage on the forehead. She asks about some red spots at the nasal root. Medical History Allergies Codeine Medications Current Outpatient Medications Medication [...] No current facility-administered medications for this visit. Social History New grandson Going to visit her daughter Family History Review of Systems General: feeling well Skin: denies other skin complaints Examination General: NAD, pleasant, cooperative. Type of exam: The patient was asked to disrobe to the level of their comfort. Focused skin examination of the face was normal with the exception of the findings listed below. Significant skin findings: ?? Right cheek x 1, right forehead x 1: 0.2-0.3cm scaly irregular pink papule ?? Root of the nose: dilated blood vessels ?? Scattered actinic damage on the forehead/early AK development Images Photo taken and charted with patient consent [Figure A] ASSESSMENT/PLAN: Actinic Keratoses Procedure Note: Procedure: Destruction of lesions with cryotherapy. Number: 1 Location: as above Discussed procedure and expectations including risks (including risk of hypopigmentation) and benefits. Verbal consent obtained. Frozen with LN2, 15-30 second thaw time, TWICE. There were no complications; the patient tolerated the procedure well. Post-procedure expectations and wound care were reviewed. Telangiectasia - Benign. No treatment necessary. - Patient reassured about - Referral to Winifred Gregg MD for cosmetic treatment. RTC 1 year for check. Consider recommending PDT of the forehead. Note initiated and routed to physician for review and change by: Celestino Bell I, Celestino Bell, have performed the documentation for this encounter in the presence of and acting as a scribe for MURTAZA LIN MD. I performed the services which were documented by the scribe, and I agree with the accuracy of the documentation in this encounter. MURTAZA LIN MD. Murtaza Lin MD Section of Dermatology [facility] documented in this encounter Plan of Treatment Not on file documented as of this encounter Visit Diagnoses Diagnosis AK (actinic keratosis) Actinic keratosis documented in this encounter Care Teams Blankmaker Relationship Specialty Start Date End Date Jasmyn Us ND [address] [place] [address] PCP - General Naturopathic Medicine 11/30/17 11/02/21 documented as of this encounter
--- OUTSIDE RECORDS SUMMARY | 2023-11-01 14:59 | XMS_ITS | Encounter Summary ---
Author Organization Count Includes [facility] Address [facility] [place] [address] Care Team Providers Care Hang Gliding Instructor Name Role Phone Jada Ventura MD Primary Care Provider [phone] Encounter Details Date Type Department Care Team (Latest Contact Info) Description 12/08/2022 Travel Social History Tobacco Use Types Packs/Day Years [...] on filedocumented in this encounter Care Teams Hang Gliding Instructor Relationship Specialty Start Date End Date Jada Ventura MD [address] [place] [address] PCP - General Family Medicine 11/03/21 documented as of this encounter
--- OUTSIDE RECORDS SUMMARY | 2023-11-01 14:59 | XMS_ITS | Encounter Summary ---
Author Organization [facility] Address [address] [place] [address] Care Team Providers Care Oncology Social Work Name Role Phone Unknown, Provider Primary Care Provider Encounter Details Date Type Department Care Team ([facility] Contact Info) Description 12/19/2010 Results Only [facility] Laboratory Services - [facility] ([facility]) [address] [place] [id number] Erinn Dawson, DAMIR Social History Tobacco Use [...] Procedure Name Priority Date/Time Associated Diagnosis Comments PAP TEST- RESULT ONLY Routine 12/19/2010 0:00 EDT documented in this encounter Results * PAP TEST- RESULT ONLY (12/19/2010 0:00 EDT) Pathology Report: CYTOPATHOLOGY REPORT ? Reports generated via electronic interface contain original data; ? however they are lacking the format of the original report. ? Caution should be taken when reading/interpreti ng unformatted reports. ? Name: ? SPRINGBURAK, ALBARO ? Accession #: ? [id number] ? : ? 1960 (Age: 50) ??F ?Collect Date: ? 12/19/2010 ? Location: ? [facility] ? Receive Date: ? 12/20/2010 ? Provider: ERINN M ORLIN LD TEACHER ? Copy to: CECI GRAHAM MD ? Final Report ? SPECIMEN ADEQUACY ? Satisfactory for Evaluation ? - transformation zone component present ? GENERAL CATEGORIZATION ? Negative for Intraepithelial Lesion or Malignancy ? Last Menstural Period: 7/20/10 ? Specimen/Source: ??Pap Test, Cervix/Endocervix, ThinPrep Imaging System with ? manual evaluation ? Document reviewed and electronically signed by: ? Brittney Surinder, CT(ASCP) ? Report ??Date: 12/26/2010 15:03 ? HPV with Pap Test ? Date Ordered: ? 12/26/2010 ? Status: ?? Signed Out ?Date Complete: ? 12/28/2010 ? By: ??System Interface ? Date Reported: ? 12/28/2010 ? Interpretation ? RESULT: Negative for HPV types 16, 18, 31, 33, 35, 39, 45, 51, 52, ? 56, 58, 59, and 68. ? Comments ? Document reviewed and electronically signed by: ? System Interface ? Report date: 12/28/2010 ? By the signature above, the attending physician certifies that he/she has ? personally conducted a gross and/or microscopic examination of the described ? specimens and rendered or confirmed the above diagnosis. ? End of Report ? DIVINA HARRY 12/19/2010 12/20/2010 Erinn Dawson NP PATHOLOGY ORDERABLES Performing Organization Address City/State/[facility] Co de Phone Number [facility] [address] [place] [address] documented in this encounter Visit Diagnoses Not on filedocumented in this encounter Care Teams Oncology Social Work Relationship Specialty Start Date End Date Unknown, Provider, PCP - General 12/20/10 documented as of this encounter
--- OUTSIDE RECORDS SUMMARY | 2023-11-01 14:59 | XMS_ITS | Encounter Summary ---
[place] [address] Care Team Providers Care Lacing Operator Name Role Phone Jasmyn Us ND Primary Care Provider [phone] Encounter Details Date Type Department Care Team (Late st Contact Info) Description 09/16/2020 9:00 AM EDT Laboratory Appointment Lab [address] [id number] Social History Tobacco Use Types Packs/Day Years Used Date Smoking Tobacco: Never Smokeless Tobacco: Never Sex and Gender Information Value Date Recorded Sex Assigned at Not on file Gender Identity Not on file Sexual Orientation Not on file documented as of this encounter Plan of Treatment Not on file documented as of this encounter Procedures Procedure Name Priority Date/Time Associated Diagnosis Comments MISCELLANEOUS LAB REQUEST Routine 09/16/2020 10:16 AM EDT VITAMIN D, 25-HYDROXY Routine 09/16/2020 10:16 AM EDT SEDIMENTATION RATE Routine 09/16/2020 10 :16 AM EDT CRP, CARDIAC RISK (HS CRP) Routine 09/16/2020 10:16 AM EDT HOMOCYSTEINE TOTAL, PLASMA Routine 09/16/2020 10:16 AM EDT GAMMA GT Routine 09/16/2020 10:16 AM EDT LIPID PANEL (REFLEX DIRECT LDL) Routine 09/16/2020 10:16 AM EDT COMPREHENSIVE METABOLIC PANEL (NON-FASTING) Routine 09/16/2020 10:16 AM EDT documented in this encounter Results * Miscellaneous Lab request (09/16/2020 10:16 AM EDT) [facility] Result Request received in lab. [facility] Blood Venous Draw / Unknown 09/16/2020 10:16 AM EDT 09/16/2020 4:56 PM EDT Narrative Resulting Agency Comment Spec In Lab Shelby Sánchez MD HEMATOLOGY ORDERABLE S [facility] [place] [address] * Lipid Panel (Reflex Direct LDL) (09/16/2020 10:16 AM EDT) [facility] Chol, Total 270 mg/dL [facility] Comment: Lower Risk: <200 mg/dL Average Risk: 200-239 mg/dL Higher Risk: >lr=866 mg/dL Triglycerides 55 mg/dL [facility] Comment: Average Risk/Lower Risk: <150 mg/dL Borderline High Risk: 150-199 mg/dL High Risk: 200-499 mg/dL Very High Risk: >ml=570 mg/dL HDL 100 mg/dL [facility] Comment: Males: ?? Higher Risk: <40 mg/dL Females: ?? Higher Risk: <50 mg/dL LDL Cholesterol 159 mg/dL [facility] Comment: Lowest Risk: <100 mg/dL Lower Risk: 100-129 mg/dL Borderline High Risk: 130-159 mg/dL High Risk: 160-189 mg/dL Very High Risk: >lc=845 mg/dL Chol/HDL Ratio 2.7 ratio [facility] Lipid Interpretation See Note [facility] Comment: Lipid management should be guided by a patient? s ASCVD risk, goals and preferences. ACC/AHA Guidelines recommend high intensity statin if clinical ASCVD or LDL greater than or equal to 190 mg/dL. http://[employer].com/DXP-DOK-Riypyoqas Adults aged 40-75 with LDL 70-189 mg/dL should have their 10 year ASCVD risk estimated with the ACC/AHA ASCVD risk mobile heavy equipment operator http://tools.acc.org/TCUCW-Uqfg-Zcyxdsdbv/ Statin should be discussed if risk greater than or equal to 7.5% in non-diabetics. With diabetes, moderate intensity statin is recommended if risk less than 7.5%, high intensity if risk greater than or equal to 7.5%. Annual lipid monitoring on statins is not necessary. Evaluate secondary causes of Triglycerides greater than 500 mg/dL or LDL greater than 190 mg/dL: See table 6 of ACC/AHA Guideline. Lifestyle modification is a critical component of ASCVD risk reduction. Blood Venous Draw / Unknown 09/16/2020 10:16 AM EDT 09/16/2020 10:30 AM EDT Narrative Resulting Agency Comment Spec In Lab Shelby Sánchez MD CHEMISTRY ORDERABLES [facility] [place] [address] * CRP, cardiac risk (HS CRP) (09/16/2020 10:16 AM EDT) CRP High Sens 0.9 mg/L [facility] Comment: For cardiac risk assessment, two values (fasting or nonfasting sample acceptable) taken at least 2 weeks apart, should be averaged to provide a more reliable estimate of marker level. This laboratory will be using the recommendations from the AHA/CDC Scientific Statement for interpretations of future risks of cardiovascular events: ?<1.0 mg/L: low risk ?1.0 to 3.0 mg/L: moderate risk ?>3.0 mg/L: high risk ?>10.0 mg/L: Acute Inflammation Note: CRP values >10 mg/L indicate an acute inflammatory condition or infection. The >10 mg/L value should not be used for cardiac risk assessment and a repeat specimen should be collected at least two weeks after resolution of the acute inflammatory condition. References: 1. Tae SANCHEZ et. al. ??AHA/CDC Scientific Statement: Markers of Inflammation and Cardiovascular Disease. ??Circulation 2003; 107:499-511 2. Ridker PM. ??Clinical applications of C-reactive protein for cardiovascular disease detection and prevention. ??Circulation 2003; 107:363-369 CRP Cardiac Risk Low Risk [facility] Blood Venous Draw / Unknown 09/16/2020 10:16 AM EDT 09/16/2020 10:30 AM EDT Narrative Resulting Agency Comment Spec In Lab Shelby Sánchez MD CHEMISTRY ORDERABLES Performing Organization Address [facility] Co de Phone Number [facility] [place] [address] * Sedimentation rate (09/16/2020 10:16 AM EDT) [facility] Sed Rate 4 2 - 39 mm/hr [facility] Comment: Effective March 12, 2019 new capillary photometric technology has resulted in a change in reference ranges. It is recommended that each ESR result be reviewed with its own age appropriate reference range. Blood Venous Draw / Unknown 09/16/2020 10:16 AM EDT 09/16/2020 10:30 AM EDT Narrative Resulting Agency Comment Spec In Lab Shelby Sánchez MD HEMATOLOGY ORDERABLE S Performing Organization Address [facility] Co de Phone Number [facility] [place] [address] * Vitamin D, 25-Hydroxy (09/16/2020 10:16 AM EDT) Pathologist [facility] 25-OH Vit D Total 37 21 - 100 ng/mL [facility] 25-OH Vit D Interp Sufficient [facility] Blood Venous Draw / Unknown 09/16/2020 10:16 AM EDT 09/16/2020 10:30 AM EDT Narrative Resulting Agency Comment Spec In Lab Shelby Sánchez MD CHEMISTRY ORDERABLES Performing Organization Address City/[facility]/ZIP Co de Phone Number [facility] [place] [address] * Gamma GT (09/16/2020 10:16 AM EDT) GGT 10 5 - 36 unit/L [facility] Blood Venous Draw / Unknown 09/16/2020 10:16 AM EDT 09/16/2020 10:30 AM EDT Narrative Resulting Agency Comment Spec In Lab Shelby Sánchez MD CHEMISTRY ORDERABLES Performing Organization Address City/[facility]/ZIP Co de Phone Number [facility] [place] [address] * Homocysteine Total, Plasma (09/16/2020 10:16 AM EDT) Homocyst Tot 8 <=15 mcmol/L [facility] Blood Venous Draw / Unknown 09/16/2020 10:16 AM EDT 09/16/2020 10:30 AM EDT Narrative Resulting Agency Comment Spec In Lab Shelby Sánchez MD CHEMISTRY ORDERABLES Performing Organization Address City/[facility]/ZIP Co de Phone Number [facility] [place] [address] * (ABNORMAL) Comprehensive metabolic panel (non-fasting) (09/16/2020 10:16 AM EDT) Glucose Lvl 86 65 - 199 mg/dL [facility] Comment:Diabetes: >=200 mg/d L plus symptoms BUN 11 8 - 18 mg/dL [facility] Creatinine 0.65(L) 0.70 - 1.20 mg/dL [facility] Sodium 137 135 - 145 mmol/L [facility] Potassium 3.9 3.5 - 5.0 mmol/L [facility] Comment: Please note: ??Patients with WBC >100,000 may have falsely elevated Potassium levels. ??For accurate Potassium quantification in these patients send serum separator tube (gold top) for subsequent determinations. ??Contact the Clinical Chemistry Laboratory if there are any questions. Chloride 99 98 - 107 mmol/L [facility] CO2 26 22 - 31 mmol/L [facility] Anion Gap 12 5 - 15 mmol/L [facility] Calcium 9.7 8.5 - 10.5 mg/dL [facility] Total Protein 7.1 6.1 - 8.0 gm/dL [facility] Albumin 4.6 3.2 - 5.2 gm/dL [facility] AST 23 0 - 30 unit/L [facility] ALT 16 0 - 30 unit/L [facility] Alk Phos 74 35 - 105 unit/L [facility] Total Bilirubin 0.5 0.2 - 1.3 mg/dL [facility] Estimated GFR 95 >=60 mL/min/1. 73 m?? [facility] Comment: This patient? s estimated glomerular filtration rate (eGFR) is between 95 mL/min/1.73 m2 (patients with less muscle mass) and 110 mL/min/1.73 m2 (patients with more muscle mass) as determined by the CKD-EPI equation. Assessment of eGFR is not appropriate when creatinine concentrations are rapidly changing. For clinical decisions where creatinine clearance will affect therapy, a 24-hour urine creatinine clearance may be advised. Assignment of CKD stage 1 - 5 for patients with an eGFR near the transition point between stages may be based on clinical assessment of muscle mass and symptoms in addition to eGFR. Blood Venous Draw / Unknown 09/16/2020 10:16 AM EDT 09/16/2020 10:30 AM EDT Narrative Resulting Agency Comment Spec In Lab Shelby Sánchez MD CHEMISTRY ORDERABLES [facility] [place] [address] documented in this encounter Visit Diagnoses Not on filedocumented in this encounter Care Teams Lacing Operator Relationship Specialty Start Date End Date Jasmyn Us ND [address] [place] [address] PCP - General Naturopathic Medicine 11/30/17 11/02/21 documented as of this encounter
--- OUTSIDE RECORDS SUMMARY | 2023-11-01 14:59 | XMS_ITS | Encounter Summary ---
Author Organization [facility] Address [address] [place] [address] Care Team Providers Care Ore Grader Name Role Phone Unavailable Primary Care Provider Unavailabl e Encounter Details Date Type Department Care Team ([facility] st Contact Info) Description 05/15/2001 Results Only [facility] - Maple conversion [address] [place] [address] Erinn Dawson, DAMIR Social History Tobacco Use [...] Priority Date/Time Associated Diagnosis Comments CYTOPATHOLOGY Routine 05/15/2001 0:00 EST documented in this encounter Results * CYTOPATHOLOGY (05/15/2001 0:00 EST) Pathology Report: CYTOPATHOLOGY REPORT Reports generated via electronic interface contain original data; however they are lacking the format of the original report. Caution should be taken when reading/interpreti ng unformatted reports. Name: ? ALBARO BLOOM ? Accession #: ? [id number] : ? 1960 (Age: 41) ??F ?Collect Date: ? 05/15/2001 Location: ? [facility] ? Receive Date: ? 05/16/2001 Provider: ?ERINN DAWSON NP Copy to: ? Specimen/Source: ?ThinPrep Pap Test, Cervix/Endocervix Last Menstrual Period: ? 05/06/01 ? SPECIMEN ADEQUACY ? Satisfactory for Evaluation - transformation zone component present GENERAL CATEGORIZATION ? Negative for Intraepithelial Lesion or Malignancy ? Document reviewed and electronically signed by: ? Tiffani Cain, SCT(ASCP) ? Report Date: ??05/20/2001 13:56 End of Report [facility] 05/15/2001 05/16/2001 Erinn Dawson NP PATHOLOGY ORDERABLES [facility] [address] [place] [address] documented in this encounter Visit Diagnoses Not on filedocumented in this encounter
--- OUTSIDE RECORDS SUMMARY | 2023-11-01 14:59 | XMS_ITS | Encounter Summary ---
Author Organization [facility] Address [address] [place] [address] Care Team Providers Care High School Coordinator Name Role Phone Unavailable Primary Care Provider Unavailabl e Encounter Details Date Type Department Care Team ([facility] st Contact Info) Description 08/07/2007 Results Only [facility] - Maple conversion [address] [place] [address] Erinn Dawson, DAMIR Social History Tobacco Use [...] Procedure Name Priority Date/Time Associated Diagnosis Comments HPV DETECTION, HIGH RISK TYPES Routine 08/07/2007 14:00 EDT CYTOPATHOLOGY Routine 08/07/2007 0:00 EDT documented in this encounter Results * HUMAN PAPILLOMA VIRUS DNA TEST (08/07/2007 14:00 EDT) Specimen Description Cervix, ThinPrep vial [facility] Result Negative for HPV types 16, 18, 31, 33, 35, 39, 45, 51, 52, 56, 58, 59, and 68. [facility] Report Status Final [id number] [facility] 08/07/2007 14:0 0 EDT 08/13/2007 14:29 EDT Erinn Dawson NP MICROBIOLOGY - GENER AL ORDERABLES [facility] [address] [place] [address] * CYTOPATHOLOGY (08/07/2007 0:00 EDT) Pathology Report: CYTOPATHOLOGY REPORT Reports generated via electronic interface contain original data; however they are lacking the format of the original report. Caution should be taken when reading/interpreti ng unformatted reports. Name: ? SPRING, ALBARO ? Accession #: ? [id number] : ? 1960 (Age: 47) ??F ?Collect Date: ? 08/07/2007 Location: ? [facility] ? Receive Date: ? 08/08/2007 Provider: ?ERINN DAWSON NP Copy to: ? Specimen/Source: ?ThinPrep Pap Test, Cervix/Endocervix, processed on [employer] ThinPrep Imaging System, with manual evaluation Last Menstrual Period: ? 07/17/07 Hormonal/Contracep tive Status: ? Yes: vasectomy Other: ? HPVDX - HPV testing requested regardless of diagnosis on current ThinPrep Pap test. ? SPECIMEN ADEQUACY ? Satisfactory for Evaluation - transformation zone component present GENERAL CATEGORIZATION ? Negative for Intraepithelial Lesion or Malignancy INTERPRETATION ? Reactive cellular changes associated with inflammation present (includes repair). ? Document reviewed and electronically signed by: ? SALMA SWIFT [facility] ? Report Date: ??08/13/2007 10:41 End of Report [facility] 08/07/2007 08/08/2007 Erinn Dawson NP PATHOLOGY ORDERABLES Performing Organization Address City/State/[facility] Co de Phone Number [facility] [address] [place] [address] documented in this encounter Visit Diagnoses Not on filedocumented in this encounter
--- OUTSIDE RECORDS SUMMARY | 2023-11-01 14:59 | XMS_ITS | Continuity of Care Document ---
Author Organization [facility] Amb[facility] Address [address] [place] [address] Care Team Providers Care Air Cargo Specialist Name Role Phone CATHERINE HARVEY Primary Care Physician Encounter [facility] NBR [id number] Date(s): 09/10/23 - 09/10/23 [facility] [address] [place] [address]- us Discharge Disposition: Home Allergies, Adverse Reactions, Alerts Substance Reaction Severity Status codeine Unknown Active Beef Unknown Active Assessment and Plan Future Appointments Future Scheduled Tests Radiology* MRI Brain w/ + w/o Contrast 09/18/23 Medications Fish Oil oral capsule 1 cap, [...] List Condition Confirmation Course Effective Dates Status Health St [facility] Informant Chronic sinus infection Confirmed Active Headache Confirmed Active Patient Care team information Care Team Personnel Name: CATHERINE HARVEY Position: No Access Member Role: Primary Care Physician Address: Address: [address] [place] [id number] Care Team Related Persons Name: ANA VELAZQUEZ Address: Home [address] [place], [place] [id number] [facility]
--- OUTSIDE RECORDS SUMMARY | 2023-11-01 14:59 | XMS_ITS | Encounter Summary ---
Author Organization [facility] Address [facility] [place] [address] Care Team Providers Care Oil Well Logging Engineer Name Role Phone Jasmyn Us ND Primary Care Provider [phone] Reason for Visit * Reason Comments Skin Check Encounter Details Date Type Department Care Team (Late st Contact Info) Description 11/30/2017 8:30 AM EDT Office Visit Dermatology at [facility] [address] [place] [address] Murtaza Lin MD [facility] [address] ALBARO [place] [address] AK (actinic keratosis); Seborrheic keratoses; Tinea pedis, unspecified laterality Social History Tobacco Use Types Packs/Day Years Used Date Smoking Tobacco: Never Smokeless Tobacco: Never Sex and Gender Information Value Date Recorded Sex Assigned at Not on file Gender Identity Not on file Sexual Orientation Not on file documented as of this encounter Patient Instructions * Patient Instructions* Radha Mayes LPN - 11/30/2017 8:30 AM EDT Actinic Keratoses You have been diagnosed today with Actinic Keratosis (AK). These dry, scaly patches are considered the earliest stage in the development of skin cancer. In rare cases, an AK can progress to skin cancer. Because of this risk, AKs are usually treated. You were treated today with Liquid Nitrogen. This is the most common treatment for AKs. Liquid nitrogen is extremely cold, and freezes the surface of the skin, causing the lesion to flake off. Treatment with liquid nitrogen can be uncomfortable, but discomfort should subside after a couple of hours. The area treated will look red and irritated, and it may blister up or turn dark, then fall off. This is normal! You do not need any special treatment for the area, but you may find cold compresses and/or a lightapplication of Vaseline soothing. For best results, do not rub or pick at the healing lesion. Expected healing time is 3-4 weeks. Please contact the Dermatology clinic at [phone] if the lesion has not fully resolved after 6 weeks. Sun Protection and Your Skin It is important to protect yourself from the harmful effects of ultraviolet rays that come from thesun. Exposure to ultraviolet light causes many undesirable conditions including: ?? Skin Cancer. Most skin cancers develop in areas of the skin that get the most sun exposure. Basal Cell Carcinoma (BCC), and Squamous Cell Carcinoma (SCC) are the most common. Melanoma is the deadliest. All skin cancers require treatment to prevent serious complications. ?? Sunburn. Too many sunburns or sunburns that blister increase your risk of developing skin cancer. Recommendations on protecting yourself from sunburns can be found in this AVS. ?? Aging of the Skin. Sun-exposed skin ages more quickly than normal skin. It turns rough and leathery over time. This skin can develop large freckles, a splotchy appearance, age spots, wrinkles and scaly growths. In addition to causing skin cancer, tanning beds are associated with premature aging of the skin. How Do I Protect Myself from the Sun? You can still protect yourself from the harmful effects of sun exposure and enjoy the outdoors! Thefollowing recommendations are designed to allow you to participate in all the activities you enjoy while maintaining a safe level of protection for you and your family: ?? Generously apply a broad-spectrum water-resistant sunscreen with a Sun Protection Factor (SPF) of 30 or more to all exposed skin. Broad-spectrum provides protection from both ultraviolet A (UVA)and ultraviolet B (UVB) rays. Reapply sunscreen every 2 hours, even on cloudy days, and after swimming or sweating. ?? Not all sunscreens are the same. There are a lot of sunscreen ingredients. Sunscreens work by either forming a physical or a chemical barrier to ultraviolet light. Zinc oxide or Titanium dioxide are physical barriers to the sun. They are thick and opaque--generally require a little more effort to rub in, but are generally considered safer, especially for sensitive skin. We recommend sunscreensthat contain at least one physical barrier. Look for these brands: ?? Blue Lizard ?? [place] Baby ?? Neutrogena ?? Vanicream ?? Wear protective clothing. Long-sleeved shirts, pants, a wide-brimmed hat and sunglasses are all excellent choices. There are many clothing companies that now specialize in SPF 50 or greater clothing that is engineered to be comfortable and breathable in hot weather or during exercise. A couple of choices are: ?? Coolibar (www.coolibar.[employer]) ?? LL Still (www.llbean.[employer]) ?? Sunday Afternoons (www.Testif.[employer]) ?? Seek shade. The sun's rays are strongest between 10a.m. And 4 p.m. ?? Use extra caution near water, snow and sand as they reflect and intensify the damaging rays of the sun which can increase your chance of a sunburn. Adapted from The Sun and Your Skin. [employer]. Copyright 2010 documented in this encounter Progress Notes * Murtaza Lin MD - 11/30/2017 8:30 AM EDT Images from the original note were not included. DERMATOLOGY AT [facility] Dermatology At [facility] [address] [facility] [address] FOLLOW-UP Date of service: 11/30/2017 Maddi Taylor : 1960 Provider: Murtaza Lin MD Preferred name: Mandi Preferred contact method with results: [id number] Message okay: Yes SKIN HISTORY: Wears SPF 30 - not daily (better early in summer, worse later in summer) Family h/o NMSC - father Skin Tags Chief Complaint: Full Skin Exam History of Present Illness Maddi Taylor is a 57 y.o. year old female. This is a new patient to me, self-referred. Here today with her for a full skin exam with no concerning spots. Patient states she takes a medication for Herpes outbreak but cannot remember the name. She mentions she has toenail fungus andwonders if there is anything new for this. She has been using OTC nail lacquer for 1 year, without resolution. She mentions a lesion on her left cheek that never resolves. She mentions her right heelcracks a lot. Medical History: Answered Yes/No to history or current medical problems including: Heart Disease - Yes: [] No: [x] Heart Attack - Yes: [] No: [x] Pacemaker - Yes: [] No: [x] Heart Defibrillator - Yes: [] No: [x] Artificial Hear Valve - Yes: [] No: [x] Rheumatic Fever - Yes: [] No: [x] Mitral Valve Prolapse - Yes: [] No: [x] Heart Murmur - Yes: [] No: [x] High Blood Pressure - Yes: [] No: [] Blood Clots - Yes: [] No: [x] Phlebitis - Yes: [] No: [x] Asthma - Yes: [] No: [x] Allergies/Hay fever - Yes: [] No: [x] Emphysema - Yes: [] No: [] Bronchitis - Yes: [] No: [x] Tuberculosis - Yes: [] No: [x] Stroke - Yes: [] No: [x] Seizures - Yes: [] No: [x] Diabetes - Yes: [] No: [x] Thyroid Disease - Yes: [] No: [x] Kidney Disease - Yes: [] No: [x] Stomach Ulcers - Yes: [] No: [x] Hepatitis - Yes: [] No: [x] Cancer - Yes: [] No: [x] Glaucoma - Yes: [] No: [x] Artificial Joints - Yes: [] No: [x] Rheumatoid Arthritis - Yes: [] No: [] Lupups - Yes: [] No: [x] Fainting - Yes: [] No: [x] Depression - Yes: [] No: [x] Keloids - Yes: [] No: [x] Poor Wound Healing - Yes: [] No: [x] Easy Bleeding - Yes: [] No: [x] Radiation Therapy - Yes: [] No: [x] Blood Transfusions - Yes: [] No: [x] HIV/AIDS - Yes: [] No: [x] Problem List There is no problem list on file for this patient. Allergies Codeine Medications: Current Outpatient Prescriptions Medication Sig Dispense Refill ??? Sulfacetamide Sodium, Acne, (KLARON) 10 % Suspension Apply twice daily for 4 weeks, working toward once daily for maintenance. 118 mL 3 ??? terbinafine (LAMISIL) 250 mg tablet 250 MG = 1 Tablet(s), PO, Once daily ??? urea (CARMOL) 30 % cream 1 Appl(s), Top, Twice daily No current facility-administered medications for this visit. Family History Father - NMSC Social History - here today Wears SPF 30 - not daily Bicycling Review of Systems General: feeling well Skin: denies other skin complaints Examination General: NAD, pleasant, cooperative. Skin: The patient was asked to disrobe to the level of their comfort. Full skin examination of the scalp, hair, head, face, neck, back, chest, abdomen, right and left upper extremities, right and left lower extremities and buttocks was normal with the exception of the findings listed below. Significant skin findings: ?? Humphreys, hyperkeratotic slightly irregular papules on the philtrum x1. ?? Multiple 0.4-0.6cm brown papules with waxy, stuck-on appearance - including on the face. ?? Right plantar heel: erythema and scaling. Assessment and Plan: Actinic Keratosis Procedure Note: Procedure: Destruction of lesion with cryotherapy. Number: 1 - to left of cupids bow Location: as above Discussed procedure and expectations including risks (including risk of hypopigmentation) and benefits. Verbal consent obtained. Frozen with LN2, 15-30 second thaw time, TWICE. There were no complications; the patient tolerated the procedure well. Post-procedure expectations and wound care were reviewed. Seborrheic Keratoses Benign. No treatment necessary. ?? Reassured about benign nature and natural history. Tinea Pedis Benign. Patient reassured. ?? Recommended OTC anti-fungal cream such as Miconazole or Clotrimazole. Sun Care Counseling ?? Discussed importance of sun protection, sun avoidance strategies, protective clothing, and sunscreen SPF 30+. ?? Recommended applying sunscreen SPF 30+ daily on the face, neck, and ears at least. ?? When going to be outdoors, recommended at least SPF 50 sunscreen or UPF clothing. Remember to reapply sunscreen every 2 hours or after sweating or getting wet when outdoors. ?? Reviewed various types of skin cancer and ABCDEs of melanoma. RTC December 2019 for 2 year full skin exam, or sooner as needed. (Coord w/ 's appt) Note initiated and routed to physician for review and change by: Radha Mayes LPN I, Emperatriz Dillon, have performed the documentation for this encounter in the presence of and acting as a scribe for MURTAZA LIN MD. I performed the services which were documented by the scribe, and I agree with the accuracy of the documentation in this encounter. MURTAZA LIN MD. Murtaza Lin MD Section of Dermatology [facility] documented in this encounter Plan of Treatment Not on file documented as of this encounter Visit Diagnoses Diagnosis AK (actinic keratosis) Actinic keratosis Seborrheic keratoses Tinea pedis, unspecified laterality documented in this encounter Care Teams Oil Well Logging Engineer Relationship Specialty Start Date End Date Jasmyn Us ND [address] [place] [address] PCP - General Naturopathic Medicine 11/30/17 11/02/21 documented as of this encounter
--- OUTSIDE RECORDS SUMMARY | 2023-11-01 14:59 | XMS_ITS | Encounter Summary ---
Author Organization [facility] Address [address] [place] [address] Care Team Providers Care Rubber Mixer Name Role Phone Unknown, Provider Primary Care Provider [phone] Reason for Visit * Reason Onset Date Comments Other 10/22/2019 PADS FOR SHOES N OT WORKING-WOULD LIKE TO KNOW WHAT NEXT STEP WOULD BE Encounter Details Date Type Department Care Team ([facility] Contact Info) Description 10/22/2019 Telephone [facility] Orthopedics & Podiatry [address] [place] [address] Olivia Meyer DPM [address] [facility] [address] [place] [address] Other (PADS FOR SHOES NOT WORKING-WOULD LIKE TO KNOW WHAT NEXT STEP WOULD BE) Social History Tobacco Use Types Packs/Day Years [...] encounter Miscellaneous Notes * Telephone Encounter - Olivia Meyer DPM - 10/22/2019 1600 EDT See other TE * Telephone Encounter - Meli Bhatti - 10/22/2019 1023 EDT When seen at her last visit, AM gave patient pads to place in her shoes. 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 Foot gets very inflamed after doing walking or biking after like a 45 minute time table. So patient was just wondering what would be the next step besides these pads. Please call to discuss. Thanks documented in this encounter Plan of Treatment Not on file documented as of this encounter Visit Diagnoses Not on filedocumented in this encounter Care Teams Rubber Mixer Relationship Specialty Start Date End Date Unknown, Provider, PCP - General 12/20/10 documented as of this encounter
--- OUTSIDE RECORDS SUMMARY | 2023-11-01 14:59 | XMS_ITS | Clinical Summary ---
Author Organization [facility] Address [address] [facility] [place] [address] Care Team Providers Care Novelty Balloon Assembler And Packer Name Role Phone Jada Ventura MD Primary Care Provider [phone] Allergies Active Allergy Reactions Criticality Noted Date Comments Codeine 09/30/2014 Medications Medication Sig Dispensed Refills Start Date End Date Status terbinafine (LAMISIL) 250 mg tablet 250 MG = 1 Tablet(s), PO, Once daily 08/09/2009 Active urea (CARMOL) 30 % cream 1 Appl(s), Top, Twice daily 08/09/2009 Active Sulfacetamide Sodium, Acne, (KLARON) 10 % SuspensionIndication s:Acne rosacea Apply twice daily for 4 weeks, working toward once daily for maintenance. 118 mL 3 09/30/2014 Active Additional Information Patient not taking.Reported on 11/30/2017 Active Problems No known active problems Encounters Date Type Department Care Team Description 09/20/2023 11:30 AM EDT Office Visit Dermatology at [facility] [address] [place] [id number] Ramya Contreras MD Skin cancer screening; AK (actinic keratosis); Winters angioma; SK (seborrheic keratosis); Lentigines; Multiple benign melanocytic nevi of upper extremity, lower extremity, and trunk 09/20/2023 11:20 AM EDT Laboratory Appointment Lab at [address] [place] [phone] 09/20/2023 Travel from Last 3 Months Family History Medical History Relation Comments Breast Cancer Mother Relation Status Comments Mother Social History Tobacco Use Types Packs/Day Years Used Date Smoking Tobacco: Never Smokeless Tobacco: Never Sex and Gender Information Value Date Recorded Sex Assigned at Not on file Gender Identity Not on file Sexual Orientation Not on file Plan of Treatment Health Maintenance Due Date Last Done Comments CT Colonography 1960 Colonoscopy 1960 Colorectal Cancer Screening 1960 FIT DNA 1958 FIT 1960 Sigmoidoscopy (10 year) with FIT yearly 1958 Sigmoidoscopy 1960 HIV screen 1976 Hepatitis C Screening 1976 Tdap adult 1977 Tetanus vaccine 1977 HPV test 1988 PAP Smear 1988 Breast Cancer Share Decision Needed 1998 Zoster vaccine (1 of 2) 2008 Advance Directive 2013 Covid-19 Vaccine ( - 24 season) 2022 Bone Density Scan 2023 Pneumoccocal Vaccine: 65+ (1 of 1 - PCV) 2023 Influenza (Flu) vaccine (1 o f 1 - Influenza standard series) 12/02/2023 Breast Cancer screening 12/08/2024 12/08/2022, 09/16 Procedures Procedure Name Priority Date/Time Associated Diagnosis Comments SEDIMENTATION RATE Routine 09/20/2023 12 :37 PM EDT CRP, CARDIAC RISK (HS CRP) Routine 09/20/2023 12:37 PM EDT BARTONELLA ANTIBODY PANEL Routine 09/20/2023 12:37 PM EDT MAMMO SCREENING CAD AND KETAN BILATERAL Routine 12/08/2022 8:43 AM EDT Encounter for screening mammogram for breast cancer from Last 3 Months or Most Recently Relevant to Health Maintenance Results * Bartonella Antibody Panel (09/20/2023 12:37 PM EDT) Bartonella Ab Panel Test ? Result ? Flag ??Unit ?? RefValue ------- Bartonella Ab Panel, IgG and IgM ??Russel Henselae IgG ?<1:128 ? titer ??<1:128 ??Russel Henselae IgM ?<1:20 ?titer ??<1:20 ??Russel Saldana IgG ?<1:128 ? titer ??<1:128 ??Russel Saldana IgM ?<1:20 ?titer ??<1:20 ? ---ADDITIONAL INFORMATION------- ?This test was developed and its performance characteristics ?determined by [facility] in a manner consistent with CLIA ?requirements. This test has not been cleared or approved by ?the U.S. Food and Drug Administration. ?Test Performed by: ?[facility] ?[address] [place] [address] ?Label Maker: Evan Shelley Ph.D.; CLIA# [id number] [facility] Blood Venous Draw / Unknown 09/20/2023 12:37 PM EDT 09/21/2023 7:48 AM EDT Narrative Resulting Agency Comment Spec In Lab Shelby Sánchez MD IMMUNOLOGY ORDERABLE S Performing Organization Address [facility]/ZIP Co de Phone Number [facility] [place] [place] [address] * Sedimentation rate (09/20/2023 12:37 PM EDT) Pathologist [facility] Sed Rate 21 2 - 39 mm/hr [facility] Comment: Effective March 12, 2019 new capillary photometric technology has resulted in a change in reference ranges. It is recommended that each ESR result be reviewed with its own age appropriate reference range. Blood Venous Draw / Unknown 09/20/2023 12:37 PM EDT 09/20/2023 3:55 PM EDT Narrative Resulting Agency Comment Spec In Lab Shelby Sánchez MD HEMATOLOGY ORDERABLE S Performing Organization Address City/[facility]/ZIP Co de Phone Number [facility] [place] [address] * CRP, cardiac risk (HS CRP) (09/20/2023 12:37 PM EDT) Pathologist [facility] CRP High Sens 0.4 mg/L [facility] Comment: For cardiac risk assessment, [...] and Cardiovascular Disease. ??Circulation 2003; 107:499-511 2. Tahir PM. ??Clinical applications of C-reactive protein for cardiovascular disease detection and prevention. ??Circulation 2003; 107:363-369 CRP Cardiac Risk Low Risk [facility] Blood Venous Draw / Unknown 09/20/2023 12:37 PM EDT 09/20/2023 3:59 PM EDT Narrative Resulting Agency Comment Spec In Lab Shelby Sánchez MD CHEMISTRY ORDERABLES [facility] [place] [address] * Mammo Screening Cad and Ketan Bilateral (12/08/2022 8:43 AM EDT) Anatomical Region Laterality Modality Breast Bilateral Mammography Impressions 12/08/2022 8:49 AM EDT No mammographic evidence of malignancy, Routine annual screening mammography is recommended. FINAL ASSESSMENT: BI-RADS Category 2: Benign Findings * ??Regular screening mammograms starting at age 40 reduces the risk of from breast cancer. * ??Yearly screening provides the most benefit. Women should discuss with their provider their preferred breast cancer screening schedule. * ??Women should report any breast changes to a health care provider right away. * ??Some women, because of their family history, a genetic tendency, or other factors, should be screened with annual breast MRI as well as with mammograms. Thank you for letting us participate in the care of this patient. ??If you are a health care provider and have any questions regarding this report, please contact the number below. ??For patients who have questions please contact the health care partner that requested your imaging first. ? Narrative 12/08/2022 8:49 AM EDT EXAMINATION: MAMMO SCREENING CAD AND KETAN BILATERAL REASON FOR EXAM: Screening TECHNIQUE: CC and MLO views were obtained of BOTH breasts. 2D and 3D tomosynthesis images were obtained. Computer aided detection was used. COMPARISON: Comparison was made to the prior relevant examinations. BREAST DENSITY: The breasts are heterogeneously dense, which may obscure small masses. FINDINGS: Stable calcifications left outer breast. There are no suspicious microcalcifications, masses, or areas of distortion. Stable appearance. Jada Ventura MD IMG MAMMO ORDERABLES from Last 3 Months or Most Recently Relevant to Health Maintenance Care Teams Novelty Balloon Assembler And Packer Relationship Specialty Start Date End Date Jada Ventura MD [address] [place] [address] PCP - General Family Medicine 11/03/21
--- OUTSIDE RECORDS SUMMARY | 2023-11-01 14:59 | XMS_ITS | Encounter Summary ---
Author Organization [facility] Address [address] [place] [id number] Care Team Providers Care Regional Wildlife Agent Name Role Phone Unknown, Provider Primary Care Provider Encounter Details Date Type Department Care Team (Latest Contact Info) Description 11/13/2018 14:52 EDT - 11/13/2018 23:59 EDT Hospital Encounter [address] [address] Unknown, Provider, Discharge Disposition: Home or Self Care Social History Tobacco Use Types Packs/Day Years Used Date Smoking Tobacco: Never Assessed Sex and Gender Information Value Date Recorded Sex Assigned at Not on file Gender Identity Female 08/21/2019 9:47 EDT Sexual Orientation Not on file documented as of this encounter Discharge Disposition Disposition Code Departure Means Destination Home or Self Snf documented in this encounter Plan of Treatment Not on file documented as of this encounter Visit Diagnoses Not on filedocumented in this encounter Care Teams Regional Wildlife Agent Relationship Specialty Start Date End Date Unknown, Provider, PCP - General 12/20/10 documented as of this encounter
--- OUTSIDE RECORDS SUMMARY | 2023-11-01 14:59 | XMS_ITS | Encounter Summary ---
Author Organization [facility] [place] [address] Care Team Providers Care Hold Worker Name Role Phone Jada Ventura MD Primary Care Provider [phone] Encounter Details Date Type Department Care Team (Latest Contact Info) Description 12/08/2022 8:22 AM EDT - 12/08/2022 11:59 PM EDT Hospital Encounter Mammography/[place] [address] Jada Ventura MD [address] [place], [place] [id number] Encounter for screening mammogram for breast cancer Discharge Disposition: Home Social History Tobacco Use Types Packs/Day Years Used Date Smoking Tobacco: Never Smokeless Tobacco: Never Sex and Gender Information Value Date Recorded Sex Assigned at Not on file Gender Identity Not on file Sexual Orientation Not on file documented as of this encounter Medications at Time of Discharge Medication Sig Dispensed Refills Start Date End Date Sulfacetamide Sodium, Acne, (KLARON) 10 % SuspensionIndications:Acn e rosacea Apply twice daily for 4 weeks, working toward once daily for maintenance. 118 mL 3 09/30/2014 terbinafine (LAMISIL) 250 mg tablet 250 MG = 1 Tablet(s), PO, Once daily 08/09/2009 urea (CARMOL) 30 % cream 1 Appl(s), Top, Twice daily 08/09/2009 documented as of this encounter Plan of Treatment Not on file documented as of this encounter Procedures Procedure Name Priority Date/Time Associated Diagnosis Comments MAMMO SCREENING CAD AND KETAN BILATERAL Routine 12/08/2022 8:43 AM EDT Encounter for screening mammogram for breast cancer documented in this encounter Results * Mammo Screening Cad and Ketan Bilateral [...] who have questions please contact the health human services care specialist that requested your imaging first. ? Electronically signed by: Rosalinda Cochran MD, [facility] ([phone]), at 12/08/2022 8:49 AM Narrative 12/08/2022 8:49 AM EDT EXAMINATION: MAMMO [...] appearance. Jada Ventura MD IMG MAMMO ORDERABLES documented in this encounter Visit Diagnoses Diagnosis Encounter for screening mammogram for breast cancer documented in this encounter Care Teams Hold Worker Relationship Specialty Start Date End Date Jada Ventura MD [address] [place] [address] PCP - General Family Medicine 11/03/21 documented as of this encounter
--- OUTSIDE RECORDS SUMMARY | 2023-11-01 14:59 | XMS_ITS | Encounter Summary ---
Author Organization [facility] Address [address] [place] [address] Care Team Providers Care Pan Washer Hand Name Role Phone Unknown, Provider Primary Care Provider [phone] Reason for Visit * Reason Comments Pain Encounter Details Date Type Department Care Team ([facility] st Contact Info) Description 09/04/2019 14:15 EDT Office Visit [facility] [address] [place], [place] [id number] Olivia Meyer, [facility] [address] [facility] [address] [place] [address] Smith's neuroma of both feet (Primary Dx); Hallux valgus of left foot; Hammertoe of second toe of left foot Social History Tobacco Use Types Packs/Day Years [...] have Coronavirus / COVID-19? No / Unsure 09/04/2019 14:20 EDT documented as of this encounter Last Filed Vital Signs Vital Sign Reading Time Taken Comments Blood Pressure - - Pulse 80 09/04/2019 1421 EDT Temperature 36.9 ??C (98.4 ??F) 09/04/2019 1421 EDT Respiratory Rate - - Oxygen Saturation - - Inhaled Oxygen Concentration - - Weight - - Height - - Body Mass Index - - documented in this encounter Progress Notes * Olivia Meyer DPM - 09/04/2019 1415 EDTAssociated Order(s): Small Joint Injection/Arthrocentesis Post-Procedure Diagnose(s): Luis's neuroma of both feet CHIEF COMPLAINT: Chief Complaint Patient presents with ??? Right Foot - Pain SUBJECTIVE: Maddi Robert is a 59 y.o. female who presents today As a new patient for a neuroma. Previously had aneuroma of left foot, hasnt normally bothered her until recently. Atraumatic pain, pain began in July, walking more up to 6 miles a day when her pain started. Does wear correct toes for the last 3 weeks due to the pain. Right foot bothers all the time, except with sneakers or birkenstocks. Previously had a left foot neuroma, required 2 steroid injections and stretching with resolution ofsymptoms. Active in biking, yoga There is no problem list on file for this patient. Social History Tobacco Use ??? Smoking status: Never Smoker ??? Smokeless tobacco: Never Used Substance Use Topics ??? Alcohol use: Not on file No past surgical history on file. Allergies Allergen Reactions ??? Codeine Medications Prior to Today's Visit Medication Sig ??? Multivitamins with Minerals tablet tablet Take 1 Tab by mouth daily. No facility-administered medications prior to visit. ROS: Constitutional: negative for, fever, malaise, weight loss, chills Eyes: Negative for, blurry vision, change in vision Ears,nose,mouth,throat :Negative for, URI symptoms Cardiovascular: negative for, chest pain Respiratory: negative for, dyspnea Gastrointestinal: negative for, abdominal pain Musculoskeletal Positive for foot pain Skin/breast negative for skin changes Neurological: Negative forseizures, memory loss, balance changes, headache Psychiatric Negative for, Depression, Anxiety, sleep problems Hematologic/lymphatic Negative for bruising, easy bleeding, anemia OBJECTIVE: Pulse 80 Temp 36.9 ??C (98.4 ??F) On physical exam, the patient is found to be a cooperative female who appears to be alert and oriented x 3. Gen: A+Ox3, NAD. Pleasant Lungs: Breathing unlabored Psych: normal cognition, normal affect HEENT: Anicteric Sclerae Vascular: DP and PT pulses palpable, Capillary refill time <3 seconds to all digits. Normal hairgrowth Musculoskeletal: No pain to dorsal or plantar palpation along metatarsal. Pain to right and left 3rd interspaces Right worse than left. Left 4th toe at distalphalanx is adductovarus rotation. Left hallux abducted with semiflexible left 2nd toe hammertoe at the level of the PIPJ. No pain to palpation. Neurological: Negative Tinel's sign. Recreation of symptoms with palpation of bilateral 3rd interspace. Positive lynn's click right foot. Pain with forefoot squeeze right worse than left. Protective sensation grossly intact. Derm: Skin in area of concern with no obvious abnormalities. ASSESSMENT/PLAN: Mortons Neuroma Right worse than left -Discussed treatment options with patient. -continue shoes with a wide toe box, limiting barefoot activities. -Metatarsal pad applied to shoes and demonstrated how to place in shoegear. Should place in biking shoes. -corticosteroid injection right foot, see procedure note. -educated regarding more aggressive therapy options, including possible surgical correction f no benefit from current treatment. Small Joint Injection/Arthrocentesis on 09/05/2019 10:35 Medications: 1 mL bupivacaine (PF) 0.5%; 4 mg dexaMETHasone 4 mg/mL; 10 mg triamcinolone acetonide 40 mg/mL Right 3rd interspace corticosteriod injection Patient identity and site verification was confirmed by me. Skin prep with Betadine, followed by alcohol. Injection into the right 3rd interspace with 4 milligrams of dexamethasone phosphate, 10 milligramsof Kenalog, and 1 milliliters of 0.5% Marcaine plain. Hemostasis was obtained and band-aid placed to area.Post procedure instructions: Patient will limit activity for the next 3 days. The patient is to call if any problems or questions arise. Patient will follow up in 4-6 weeks. Offered televideo, however patient does not have video capabilities at work, so requests in office video. This is agreeable. 2nd toe left hammertoe Left hallux valgus -reviewed clinical findings -nightsplint dispensed -offloading gel pads -stretching exercises demonstrated This note was prepared using voice recognition software and the EMR. There may be inadvertent errors and omissions. Olivia Meyer DPM 09/04/2019 documented in this encounter Plan of Treatment Not on file documented as of this encounter Procedures Procedure Name Priority Date/Time Associated Diagnosis Comments SMALL JOINT INJECTION/ARTHROCEN TESIS Routine 09/04/2019 14:15 EDT Smith's neuroma of both feet documented in this encounter Results * AK ARTHROCENTESIS ASPIR&/INJ SMALL JT/BURSA W/O US (09/04/2019 14:15 EDT) Narrative POINT OF CARE [facility] - 09/04/2019 14:15 EDT Olivia Meyer DPM ? 09/05/2019 10:36 Small Joint Injection/Arthrocentesis on 09/05/2019 10:35 Medications: 1 mL bupivacaine (PF) 0.5%; 4 mg dexaMETHasone 4 mg/mL; 10 mg triamcinolone acetonide 40 mg/mL Olivia Meyer DPM PROCEDURE/MINOR DAVID GICAL ORDERABLES POINT OF CARE [facility] documented in this encounter Visit Diagnoses Diagnosis Smith's neuroma of both feet- Primary Hallux valgus of left foot Hammertoe of second toe of left foot documented in this encounter Administered Medications Inactive Administered Medications - up to 3 most recent administrations Medication Order MAR Action Action Date Dose Rate Site bupivacaine (PF) (MARCAINE) 0.5% injection 1 mL 1 mL, injection, Once PRN Procedure, 1 dose, Starting on Sun09/05/19 at 1035, Until Sun09/05/19 at 1035, Routine Given 09/05/2019 10:35 EDT 1 mL dexaMETHasone (DECADRON) injection 4 mg 4 mg, other, Once PRN Procedure, 1 dose, Starting on Sun09/05/19 at 1035, Until Sun09/05/19 at 1035, Routine Given 09/05/2019 10:35 EDT 4 mg triamcinolone acetonide (KENALOG-40) injection 10 mg 10 mg, other, Once PRN Procedure, 1 dose, Starting on Sun09/05/19 at 1035, Until Sun09/05/19 at 1035, Routine Given 09/05/2019 10:35 EDT 10 mg documented in this encounter Historical Medications * This list may reflect changes made after this encounter. Medication Sig Dispensed Refills Start Date End Date Multivitamins with Minerals tablet tablet Take 1 Tab by mouth daily. added in this encounter Care Teams Pan Washer Hand Relationship Specialty Start Date End Date Unknown, Provider, PCP - General 12/20/10 documented as of this encounter
--- OUTSIDE RECORDS SUMMARY | 2023-11-01 14:59 | XMS_ITS | Referral Summary ---
Author Organization [facility] Address [address] [place] [address] Care Team Providers Care Bandage Wrapping Machine Operator Name Role Phone Unknown, Provider Primary Care Provider Encounters Date Type Department Care Team Description 10/25/2023 Lab Requisition [facility] Pathology & Laboratory Medicine - [address] [address] Outr Resulting Lab, Provider from Last 3 Months Allergies Active Allergy Reactions Criticality Noted Date Comments Codeine 09/30/2014 Medications Medication Sig Dispensed Refills Start Date End Date Status Multivitamins with Minerals tablet tablet Take 1 Tab by mouth daily. Active Active Problems No known active problems Social History Tobacco Use Types Packs/Day Years Used Date Smoking Tobacco: Never Smokeless Tobacco: Never Interpersonal Safety Answer Date Record ed Physically Hurt Never 11/02/2019 Verbally Threaten Not on file 11/02/2019 Sex and Gender Information Value Date Recorded Sex Assigned at Not on file Gender Identity Female 08/21/2019 9:47 EDT Sexual Orientation Not on file Last Filed Vital Signs Vital Sign Reading Time Taken Comments Blood Pressure - - Pulse 80 09/04/2019 1421 EDT Temperature 36.7 ??C (98 ??F) 10/10/2019 1122 EDT Respiratory Rate - - Oxygen Saturation - - Inhaled Oxygen Concentration - - Weight - - Height - - Body Mass Index - - Plan of Treatment Not on file Procedures Procedure Name Priority Date/Time Associated Diagnosis Comments PARASITE EXAM, BLOOD Routine 10/25/2023 15:58 EDT from Last 3 Months Results * PARASITE EXAM, BLOOD (10/25/2023 15:58 EDT) Parasite Identification No blood parasite seen. Single negative specimen does not rule out parasitic infection. No blood parasite seen, No organism seen. PCR is the most sensitive method for Anaplasmosis or Ehrlichiosis 10/27/2023 10:02 EDT [facility] Blood VENOUS BLOOD / Unknown 10/25/2023 15:58 EDT 10/25/2023 22:01 EDT Provider Outr Resulting Lab MICROBIOLOGY - GENERAL ORDERABLES [facility] [address] [place] [address] from Last 3 Months Care Teams Bandage Wrapping Machine Operator Relationship Specialty Start Date End Date Unknown, Provider, PCP - General 12/20/10
--- OUTSIDE RECORDS SUMMARY | 2023-11-01 14:59 | XMS_ITS | Encounter Summary ---
Author Organization [facility] Address [address] [place] [address] Care Team Providers Care Engine Repairer Production Name Role Phone Unknown, Provider Primary Care Provider [phone] Encounter Details Date Type Department Care Team ([facility] st Contact Info) Description 11/13/2018 Results Only [facility] [phone] Jonathan Us, [place] [address] [facility] [address] [place] [id number] Social History Tobacco Use Types Packs/Day Years [...] Diagnosis Comments PAP TEST- RESULT ONLY Routine 11/13/2018 0:00 EDT documented in this encounter Results * PAP TEST- RESULT ONLY (11/13/2018 0:00 EDT) Pathology Report: CYTOPATHOLOGY REPORT Reports generated via electronic interface contain original data; however they are lacking the format of the original report. Caution should be taken when reading/interpreti ng unformatted reports. Name: ? ALBARO ROBERT ? Accession #: ? [id number] : ? 1960 (Age: 58) ??F ?Collect Date: ? 11/13/2018 Location: ? [facility] ? Receive Date: ? 11/14/2018 Provider: ?JONATHAN US ND Copy to: ? Specimen/Source: ?Pap Test, Vagina/Cervix/Endo cervix, ThinPrep Imaging System with manual evaluation Last Menstrual Period: ? 12/01/14 Menstrual/Pregnanc y Status: ? Post Menopausal Other: ? Additional clinical information: Z01.419 FAX - Request for Fax report: [phone] ? SPECIMEN ADEQUACY ? Satisfactory for Evaluation - assessment of transformation zone component not applicable ( e.g. atrophy, vaginal sample, hysterectomy) GENERAL CATEGORIZATION ? Negative for Intraepithelial Lesion or Malignancy INTERPRETATION ? Reactive cellular changes associated with inflammation present (includes repair). ? Document reviewed and electronically signed by: ? NAOMY JEAN BAPTISTE MD ? Report Date: ??11/21/2018 13:17 End of Report [facility] 11/13/2018 11/14/2018 Jonathan Us ND PATHOLOGY ORDER PAOLA [facility] [address] [place] [address] documented in this encounter Visit Diagnoses Not on filedocumented in this encounter Care Teams Engine Repairer Production Relationship Specialty Start Date End Date Unknown, Provider, PCP - General 12/20/10 documented as of this encounter
--- OUTSIDE RECORDS SUMMARY | 2023-11-01 14:59 | XMS_ITS | Encounter Summary ---
Author Organization [facility] Address [address] [place] [address] Care Team Providers Care Assembler Dielectric Heater Name Role Phone Unknown, Provider Primary Care Provider [phone] Encounter Details Date Type Department Care Team (Latest Contact Info) Description 10/10/2019 Travel Social History Tobacco Use Types Packs/Day [...] 11:22 EDT documented as of this encounter Plan of Treatment Not on file documented as of this encounter Visit Diagnoses Not on filedocumented in this encounter Care Teams Assembler Dielectric Heater Relationship Specialty Start Date End Date Unknown, ProviderMD PCP - General 12/20/10 documented as of this encounter
--- OUTSIDE RECORDS SUMMARY | 2023-11-01 14:59 | XMS_ITS | Encounter Summary ---
Author Organization [facility] Address [facility] [place] [address] Care Team Providers Care Wardrobe Specialist Name Role Phone Yelena Tobias MD Primary Care Provider [phone] Encounter Details Date Type Department Care Team (Late st Contact Info) Description 12/27/2010 Ancillary Procedure [place] [address] Jasmyn Us, MARGARET [address] [place] [address] Social History Tobacco Use Types Packs/Day Years [...] Comments FILM LIBRARY STORAGE ONLY MAMMO Routine 12/27/2010 12:00 AM EDT documented in this encounter Results * Film Library- Storage Only Mammo (12/27/2010 12:00 AM EDT) Narrative [facility] - 09/17/2020 4:51 PM EDT This exam is auto-finalizing. It's purpose is for storage only. Jasmyn Us ND IM FILM LIBRARY ORD ERABLES [place], [place] documented in this encounter Visit Diagnoses Not on filedocumented in this encounter Care Teams Wardrobe Specialist Relationship Specialty Start Date End Date Yelena Tobias MD [address] [facility] [address] [place] [address] PCP - General 02/22/10 09/29/14 documented as of this encounter
--- OUTSIDE RECORDS SUMMARY | 2023-11-01 14:59 | XMS_ITS | Encounter Summary ---
Author Organization [facility] Address [address] [place] [address] Care Team Providers Care Clinical Ob Name Role Phone Unknown, Provider Primary Care Provider [phone] Encounter Details Date Type Department Care Team (Late st Contact Info) Description 03/06/2017 Results Only [facility] [phone] Ana Bassett Jr., MD [address] [place] [address] Social History Tobacco Use Types Packs/Day Years Used Date Smoking Tobacco: Never Assessed Sex and Gender Information Value Date Recorded Sex Assigned at Not on file Gender Identity Female 08/21/2019 9:47 EDT Sexual Orientation Not on file documented as of this encounter Plan of Treatment Not on file documented as of this encounter Procedures Procedure Name Priority Date/Time Associated Diagnosis Comments SURGICAL PATHOLOGY Routine 03/06/2017 10 :23 EST documented in this encounter Results * SURGICAL PATHOLOGY (03/06/2017 10:23 EST) Pathology Report: SURGICAL PATHOLOGY REPORT Reports generated via electronic interface contain original data; however they are lacking the format of the original report. Caution should be taken when reading/interpret ing unformatted reports. Name: ? ALBARO ROBERT ? Accession #: ? [id number] ? : ? 1960 (Age: 56) ??F ? Collect Date: ? 03/06/2017 ? Location: ? [facility] ? Receive Date: ? 03/07/2017 ? Provider: ANA BASSETT MD Copy to: JONATHAN PATTON ND ? Final Pathologic Diagnosis: SOFT TISSUE, RIGHT FOOT,MASS, EXCISIONAL BIOPSY: - ??Leiomyoma. Document reviewed and electronically signed by: PAPA BEAN MD Report ??Date: 03/08/2017 15:56 By the signature above, the attending physician certifies that he/she has personally conducted a gross and/or microscopic examination of the described specimens and rendered or confirmed the above diagnosis. Specimen(s) Received: Right foot mass Clinical History: Right foot mass Gross Description: ? Received in formalin labelled with proper patient identification (initials S, C) and R foot mass is an ovoid sandhu-white soft tissue mass (1.1 x 1.0 x 0.5 cm). The outer surface is inked black. The cut surfaces are pearly white and semi-firm. The specimen is entirely submitted in 1. [place] (ASCP) 03/07/2017 11:41 AM End of Report [facility] 03/06/2017 10:2 3 EST 03/07/2017 10:23 EST Ana Bassett Jr., MD PATHOLO GY ORDERABLES [facility] [address] [place] [address] documented in this encounter Visit Diagnoses Not on filedocumented in this encounter Care Teams Clinical Ob Relationship Specialty Start Date End Date Unknown, Provider, PCP - General 12/20/10 documented as of this encounter
--- OUTSIDE RECORDS SUMMARY | 2023-11-01 14:59 | XMS_ITS | Encounter Summary ---
Author Organization [facility] Address [facility] [place] [address] Care Team Providers Care Drilling Contractor Name Role Phone Jada Ventura MD Primary Care Provider [phone] Encounter Details Date Type Department Care Team (Latest Contact Info) Description 09/20/2023 Travel Social History Tobacco Use Types Packs/Day [...] on filedocumented in this encounter Care Teams Drilling Contractor Relationship Specialty Start Date End Date Jada Ventura MD [address] [place] [address] PCP - General Family Medicine 11/03/21 documented as of this encounter
--- OUTSIDE RECORDS SUMMARY | 2023-11-01 14:59 | XMS_ITS | Encounter Summary ---
Author Organization [facility] Address [address] [place] [address] Care Team Providers Care Senior Internal Auditor Name Role Phone Unknown, Provider Primary Care Provider [phone] Reason for Visit * Reason Comments Follow-up Pain Pain Follow-up Encounter Details Date Type Department Care Team ([facility] st Contact Info) Description 10/10/2019 11:[address] 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 Right Foot - Follow-up, Pain ??? Left Foot - Pain, Follow-up SUBJECTIVE: Maddi Robert is a 59 y.o. female who presents today for follow up neuroma, she was provided a corticosteroid injection Right 3rd interspace on 09/04/2019. Improvement with injetion. Performing exercises and states she has had improvement. Left 4th toe curly toe. And this has been having difficulty and pain in this area. Wearing night splint and believes this is helping her pain, unsure if utilizine it correctly, demonstrates appropriate use. Medications Prior to Today's Visit Medication Sig ??? Multivitamins with Minerals tablet tablet Take 1 Tab by mouth daily. No facility-administered medications prior to visit. ROS: Constitutional: negative for, fever, chills, fatigue, malaise HEENT: Negative for decrease or disturbance of taste and/or smell. Cardiovascular: Negative for chest pain, dyspnea, palpitations. Respiratory: Negative for cough, wheezing, Gastrointestinal: Negative for abdominal pain, nausea, diarrhea Musculoskeletal:positive for foot pain OBJECTIVE: Temp 36.7 ??C (98 ??F) Gen: A+Ox3, NAD Lungs: breathing unlabored Psych: normal affect HEENT: Anicteric Sclera Lungs: Breathing unlabored Psych: normal cognition, normal affect HEENT: Anicteric Sclerae Vascular: DP and PT pulses palpable, normal hair growth. ?? Musculoskeletal: No pain to dorsal or plantar palpation along metatarsal. Pain to right and left 3rd interspaces Right worse than left, improved since last visit. Left 4th toe at distalphalanx is adductovarus rotation. Left hallux abducted with semiflexible left 2nd toe hammertoe at the level of the PIPJ. No pain to palpation. ?? Neurological: Negative Tinel's sign. Recreation of symptoms with palpation of bilateral 3rd interspace. Positive lynn's click right foot. Pain with forefoot squeeze right worse than left. Protective sensation grossly intact. ?? Derm: Skin in area of concern with no obvious abnormalities. ASSESSMENT/PLAN: Neuroma, Improved with corticosteroid injection, demonstrated how to place offloading pads and placed in current altra shoegear. -call if she would like an additional corticosteroid injection Adductovarus left 4th toe -discussed conservative vs surgical treatment options. She would like to continue conservative treatment options. -taping and offloading pads placed Left 2nd toe hammertoe and hallux valgus -continue offloading pads, taping, stretching. F/U if symptoms worsen This note was prepared using voice recognition software and the EMR. There may be inadvertent errors and omissions. 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
--- OUTSIDE RECORDS SUMMARY | 2023-11-01 14:59 | XMS_ITS | Encounter Summary ---
Author Organization [facility] Address [facility] [place] [address] Care Team Providers Care Manager Biologics Name Role Phone Jada Ventura MD Primary Care Provider [phone] Encounter Details Date Type Department Care Team (Late st Contact Info) Description 09/20/2023 11:20 AM EDT Laboratory Appointment Lab at [place] [address] [place] [address] Social History Tobacco Use Types Packs/Day Years Used Date Smoking Tobacco: Never Smokeless Tobacco: Never Sex and Gender Information Value Date Recorded Sex Assigned at Not on file Gender Identity Not on file Sexual Orientation Not on file documented as of this encounter Plan of Treatment Not on file documented as of this encounter Procedures Procedure Name Priority Date/Time Associated Diagnosis Comments BARTONELLA ANTIBODY PANEL Routine 09/20/2023 12:37 PM EDT SEDIMENTATION RATE Routine 09/20/2023 12 :37 PM EDT CRP, CARDIAC RISK (HS CRP) Routine 09/20/2023 12:37 PM EDT documented in this encounter Results * Sedimentation rate (09/20/2023 12:37 PM EDT) Sed Rate 21 2 - 39 mm/hr [facility] Comment: Effective March 12, 2019 new capillary photometric technology has resulted in a change in reference ranges. It is recommended that each ESR result be reviewed with its own age appropriate reference range. Blood Venous Draw / Unknown 09/20/2023 12:37 PM EDT 09/20/2023 3:55 PM EDT Narrative Resulting Agency Comment Spec In Lab Shelby Sánchez MD HEMATOLOGY ORDERABLE S [facility] [address] [facility] [address] [place] [address] * CRP, cardiac risk (HS CRP) (09/20/2023 12:37 PM EDT) [facility] CRP High Sens 0.4 mg/L [facility] Comment: For cardiac risk assessment, two [...] 2003; 107:363-369 CRP Cardiac Risk Low Risk [facility] Blood Venous Draw / Unknown 09/20/2023 12:37 PM EDT 09/20/2023 3:59 PM EDT Narrative Resulting Agency Comment Spec In Lab Shelby Sánchez MD CHEMISTRY ORDERABLES Performing Organization Address [facility]/State/ZIP Co de Phone Number [facility] [place] [address] * Bartonella Antibody Panel (09/20/2023 12:37 PM [...] and its performance characteristics ?determined by [facility] in a manner consistent with CLIA ?requirements. This test has not been cleared or approved by ?the U.S. Food and Drug Administration. ?Test Performed by: ?[facility] ?[address] [place] [address] ?Waste Specialist: Evan Shelley Ph.D.; CLIA# [id number] [facility] Blood Venous Draw / Unknown 09/20/2023 12:37 PM EDT 09/21/2023 7:48 AM EDT Narrative Resulting Agency Comment Spec In Lab Shelby Sánchez MD IMMUNOLOGY ORDERABLE S Performing Organization Address City/State/[facility] Co de Phone Number [facility] [place] [address] documented in this encounter Visit Diagnoses Not on filedocumented in this encounter Care Teams Manager Biologics Relationship Specialty Start Date End Date Jada Ventura MD [address] [place] [address] PCP - General Family Medicine 11/03/21 documented as of this encounter
--- OUTSIDE RECORDS SUMMARY | 2023-11-01 14:59 | XMS_ITS | Encounter Summary ---
Author Organization [facility] Address [facility] [place] [address] Care Team Providers Care Brick Paving Checker Name Role Phone Unavailable Primary Care Provider Unavailabl e Encounter Details Date Type Department Care Team (Late st Contact Info) Description 11/08/2009 Ancillary Procedure [place] [address] Jasmyn Us ND [address] [place] [address] Social History Tobacco Use Types Packs/Day Years [...] Comments FILM LIBRARY STORAGE ONLY MAMMO Routine 11/08/2009 12:00 AM EDT documented in this encounter Results * Film Library- Storage Only Mammo (11/08/2009 12:00 AM EDT) Narrative [facility] - 09/17/2020 4:50 PM EDT This exam is auto-finalizing. It's purpose is for storage only. Jasmyn Us ND [facility] FILM LIBRARY ORD ERABLES Performing Organization Address City/State/[facility] Co de Phone Number [place], [place] documented in this encounter Visit Diagnoses Not on filedocumented in this encounter
--- OUTSIDE RECORDS SUMMARY | 2023-11-01 14:59 | XMS_ITS | Encounter Summary ---
Author Organization [facility] Address [facility] [place] [address] Care Team Providers Care Auto Air Conditioning Mechanic Name Role Phone Jada Ventura MD Primary Care Provider [phone] Encounter Details Date Type Department Care Team (Late st Contact Info) Description 09/05/2022 10:00 AM EDT Office Visit Dermatology at [facility] [address] [place] [address] Ramya Contreras MD [facility] [place] [address] Skin cancer screening; Actinic keratoses; History of herpes simplex infection; Onychomycosis; Arthropod bite, subsequent encounter; Seborrheic keratosis; Multiple benign nevi; Solar lentigo Social History Tobacco Use Types Packs/Day Years Used Date Smoking Tobacco: Never Smokeless Tobacco: Never Sex and Gender Information Value Date Recorded Sex Assigned at Not on file Gender Identity Not on file Sexual Orientation Not on file documented as of this encounter Progress Notes * Ramya Contreras MD - 09/05/2022 10:00 AM EDT Images from the original note were not included. DEPARTMENT OF DERMATOLOGY [facility] Provider: Ramya Contreras MD Patient's preferred name Mandi Preferred contact method for results [x]Phone []myD-H []Letter Detailed phone message OK? Yes Are there any other people with whom we may discuss your care? , Donovan Mariscal Past Medical History Date, location, treatment Melanoma N Dysplastic nevi N SCC N BCC N AKs ln2 UV Exposure & Protection + history of blistering sunburn Other relevant past medical history Family History Details Melanoma NMSC Other relevant family history Social History Occupation: Retired Hobbies: Outdoors kayaking hiking. Other: Pre-Procedure Questions Details Allergy to lidocaine, epinephrine, Dermabond, chlorhexidine, or adhesives no Bleeding disorder or blood thinners no Pacemaker, defibrillator, deep brain stimulator, cochlear implant no History of Present Illness: Maddi Taylor is a 62 y.o. Patient returns to clinic today fora full skin exam: - Patient denies any bothersome or concerning lesions for today's skin check. Last visit at Dermatology: 11/03/2021 Medications: Reviewed in eD-H Allergies: Reviewed in eD-H Skin Examination: Full skin examination: Patient asked to undress to their comfort level. Verbalized that the provider's preference is that patient remove all clothing and that the provider will not examine areas patient elects to keep covered. Examination of the scalp, hair, head, face, ears, neck, chest, axillae, abdomen, back, buttocks, and upper and lower extremities was normal with the exception of the findings below. Genitalia not examined. Assessment/Plan # Actinic keratoses - ill-defined scaly pink papule(s) on the right eyebrow x1, left zygoma x1 - Reviewed diagnosis with patient, premalignant potential, and treatment options including clinicalmonitoring (risks include progression), LN2 (risks including discoloration, discomfort, and possible recurrence) - Joint decision to proceed with clinically monitoring. #. Hx of HSV - Healing pink crusted cluster of vesicles on right buttock. - Episodes occur with stress, less than 5 times per year - Continue as needed for flares Rx valacyclovir (Valtrex) 500 mg: At first sign of cold sore, take BID for 3 days #. Onychomycosis - Thickened, yellowed nails with distal onycholysis and subungual debris on the right great toe and right fourth toe. - Discussed that this is caused by a fungus. - Discussed treating topically or treating with oral medication. Cautioned rare but serious side effects of oral medication and risk of recurrence. - I advised against treatment as this is not bothersome to patient. Patient agrees with this plan. #. Arthropod Assault - 4mm pink edematous papule with central erosions on the right cheek - Pt reassured. No signs of secondary infection # Solar lentigines - few 0.3-0.6cm light-brown evenly pigmented, well-demarcated macules in a photodistributed pattern on the face, trunk and extremities. - Recommend diligent sun protection (hats/shade/clothing/sunscreen) - Discussed warning signs of skin cancer # Seborrheic keratoses - few sandhu/brown waxy stuck-on papules and plaques on the head, trunk and extremities including right forehead. - Reassured of the benign nature of these lesions - No treatment needed # Melanocytic nevi - few scattered medium-brown macules and papules on the head, trunk, and extremities. - Morphology reassuring for benign nevi. - Reassured of benign appearance on exam today. - Reviewed warning signs of skin cancer - Recommend daily sun protection with protective clothing and SPF 30+ # Winters angiomas - scattered on the trunk and extremities are few bright red smooth papules. - Reassured of the benign nature of these lesions. No treatment needed. Other: N/A RTC: 1 year FSE / return sooner as needed []Note routed to private secretary [x]Recall placed in scheduling system []Appointment scheduled at checkout Scribe attestation: JEREMIAH Norris has performed the documentation for this encounter in thepresence of and acting as a scribe for Ramya Contreras MD. I performed the above scribed service and agree with the accuracy of the documentation in this encounter. Reviewed and signed by: Ramya Contreras MD [facility] documented in this encounter Plan of Treatment Not on file documented as of this encounter Visit Diagnoses Diagnosis Skin cancer screening Screening for malignant neoplasm of the skin Actinic keratoses Actinic keratosis History of herpes simplex infection Personal history of other infectious and parasitic disease Onychomycosis Dermatophytosis of nail Arthropod bite, subsequent encounter Seborrheic keratosis Other seborrheic keratosis Multiple benign nevi Benign neoplasm of skin, site unspecified Solar lentigo Other dyschromia documented in this encounter Care Teams Auto Air Conditioning Mechanic Relationship Specialty Start Date End Date Jada Ventura MD [address] [place] [address] PCP - General Family Medicine 11/03/21 documented as of this encounter
--- OUTSIDE RECORDS SUMMARY | 2023-11-01 14:59 | XMS_ITS | Encounter Summary ---
[place] [address] Care Team Providers Care Toddler Teacher Name Role Phone Jasmyn Us ND Primary Care Provider Reason for Referral * Diagnostic Test (Routine) - Closed Specialty Diagnoses / Procedures Referred By Bassem nguyen Referred To Contact Radiology Diagnoses Encounter for screening mammogram for malignant neoplasm of breast Procedures Mammo Screening Cad and Ketan Bilateral Shelby Sánchez MD [address] [place] [address] [place] [address] Referral ID Status Reason Start Date Expiration Date V isits Requested Visits Authorized [id number] Closed Specialty Service Requested 09/14/2020 03/16/2022 1 1 Reason for Visit * Diagnostic Test (Routine) - Closed Specialty Diagnoses / Procedures Referred By Bassem nguyen Referred To Contact Radiology Diagnoses Encounter for screening mammogram for malignant neoplasm of breast Procedures Mammo Screening Cad and Ketan Bilateral Shelby Sánchez MD [address] [place] [address] [facility] [place] [address] Referral ID Status Reason Start Date Expiration Date V isits Requested Visits Authorized [id number] Closed Specialty Service Requested 09/14/2020 03/16/2022 1 1 Encounter Details Date Type Department Care Team (Latest Contact Info) Description 09/16/2020 8:40 AM EDT - 09/16/2020 11:59 PM EDT Hospital Encounter Mammography/[place] [address] Shelby Sánchez MD [address] [place] [address] Encounter for screening mammogram for malignant neoplasm of breast Discharge Disposition: Home Social History Tobacco Use [...] MAMMO SCREENING CAD AND KETAN BILATERAL Routine 09/16/2020 9:38 AM EDT Encounter for screening mammogram for malignant neoplasm of breast documented in this encounter Results * Mammo Screening Cad and Ketan Bilateral (09/16/2020 9:38 AM EDT) Anatomical Region Laterality Modality Breast Bilateral Mammography Narrative 09/20/2020 11:29 AM EDT BILATERAL MAMMOGRAPHY REASON FOR EXAM: Screening TECHNIQUE: CC and MLO views were obtained of each breast using standard 2-D mammography as well as 3-D tomosynthesis. Computer aided detection was used. This is compared with prior images. FINDINGS: ??The breasts are heterogeneously dense, which may obscure small masses. There are no suspicious microcalcifications, masses, or areas of distortion. The pattern is stable. CONCLUSION: No mammographic evidence of malignancy. RECOMMENDATION: Regular screening mammograms starting between age 40 and 50 reduces the risk of from breast cancer. All screening tests have both risks and benefits. These risks and benefits should be assessed for each individual patient through discussion with their provider to determine their preferred breast cancer screening schedule. Women should report any breast changes to a health care provider right away. Some women, because of their family history, a genetic tendency, or other factors, should be screened with annual breast MRI as well as with mammograms. (The number of women who fall into this category is very small). Patients and health care providers should discuss each patient? s history to decide if earlier screening and/or breast MRI are appropriate. Screening should continue as long as a woman is in good health and is expected to live 10 years or longer. Screening mammography may not detect 10-15% of breast cancers. A result letter has been sent to this patient by [facility]. BIRADS CATEGORY 1: NEGATIVE Electronically signed by: JUMA PEREZ MD Shelby Sánchez MD IMG MAMMO ORDERABLES documented in this encounter Visit Diagnoses Diagnosis Encounter for screening mammogram for malignant neoplasm of breast Other screening mammogram documented in this encounter Care Teams Toddler Teacher Relationship Specialty Start Date End Date Jasmyn Us ND [address] [place] [address] PCP - General Naturopathic Medicine 11/30/17 11/02/21 documented as of this encounter
--- OUTSIDE RECORDS SUMMARY | 2023-11-01 14:59 | XMS_ITS | Encounter Summary ---
Author Organization [facility] Address [address] [place] [address] Care Team Providers Care Children'S Aide Name Role Phone Unavailable Primary Care Provider Unavailabl e Encounter Details Date Type Department Care Team ([facility] st Contact Info) Description 11/29/2005 Results Only [facility] - Maple conversion [address] [place] [address] Erinn Dawson, DAMIR Social History Tobacco Use [...] Priority Date/Time Associated Diagnosis Comments CYTOPATHOLOGY Routine 11/29/2005 0:00 EDT documented in this encounter Results * CYTOPATHOLOGY (11/29/2005 0:00 EDT) Pathology Report: CYTOPATHOLOGY REPORT Reports generated via electronic interface contain original data; however they are lacking the format of the original report. Caution should be taken when reading/interpreti ng unformatted reports. Name: ? ALBARO BLOOM ? Accession #: ? [id number] : ? 1960 (Age: 45) ??F ?Collect Date: ? 11/29/2005 Location: ? [facility] ? Receive Date: ? 11/30/2005 Provider: ?ERINN DAWSON OIL RECOVERY UNIT OPERATOR Copy to: ? Specimen/Source: ?ThinPrep Pap Test, Cervix/Endocervix, processed on [employer]use ThinPrep Imaging System, with manual evaluation Last Menstrual Period: ? 11/06/05 Other: ? HPVA - HPV testing requested if ASC-US on the current ThinPrep Pap test. ? SPECIMEN ADEQUACY ? Satisfactory for Evaluation - transformation zone component present GENERAL CATEGORIZATION ? Negative for Intraepithelial Lesion or Malignancy ? Document reviewed and electronically signed by: ? SELINA Kirby(ASCP)(IAC) ? Report Date: ??12/05/2005 08:49 End of Report DIVINA HARRY 11/29/2005 11/30/2005 Erinn Dawson NP PATHOLOGY ORDERABLES Performing Organization Address City/State/[facility] Co de Phone Number DIVINA HARRY [address] [place] [address] documented in this encounter Visit Diagnoses Not on filedocumented in this encounter
--- OUTSIDE RECORDS SUMMARY | 2023-11-01 14:59 | XMS_ITS | Encounter Summary ---
Author Organization [facility] Address [address] [place] [address] Care Team Providers Care Exhibit Designer Name Role Phone Unknown, Provider Primary Care Provider Encounter Details Date Type Department Care Team (Latest Contact Info) Description 03/06/2017 12:35 EST - 03/06/2017 23:59 EST Hospital Encounter [address] [address] Unknown, Provider, Discharge Disposition: Home or Self Care Social History Tobacco Use Types Packs/Day Years Used Date Smoking Tobacco: Never Assessed Sex and Gender Information Value Date Recorded Sex Assigned at Not on file Gender Identity Female 08/21/2019 9:47 EDT Sexual Orientation Not on file documented as of this encounter Discharge Disposition Disposition Code Departure Means Destination Home or Self Prison documented in this encounter Plan of Treatment Not on file documented as of this encounter Visit Diagnoses Not on filedocumented in this encounter Care Teams Exhibit Designer Relationship Specialty Start Date End Date Unknown, Provider, PCP - General 12/20/10 documented as of this encounter
--- OUTSIDE RECORDS SUMMARY | 2023-11-01 14:59 | XMS_ITS | Encounter Summary ---
Author Organization [facility] Address [address] [place] [address] Care Team Providers Care Net Technical Architect Name Role Phone Unavailable Primary Care Provider Unavailabl e Encounter Details Date Type Department Care Team ([facility] st Contact Info) Description 08/20/2003 Results Only [facility] - Maple conversion [address] [place] [address] Erinn Dawson, DAMIR Social History Tobacco Use [...] Priority Date/Time Associated Diagnosis Comments CYTOPATHOLOGY Routine 08/20/2003 0:00 EDT documented in this encounter Results * CYTOPATHOLOGY (08/20/2003 0:00 EDT) Pathology Report: CYTOPATHOLOGY REPORT Reports generated via electronic interface contain original data; however they are lacking the format of the original report. Caution should be taken when reading/interpreti ng unformatted reports. Name: ? ALBARO BLOOM ? Accession #: ? [id number] : ? 1960 (Age: 43) ??F ?Collect Date: ? 08/20/2003 Location: ? [facility] ? Receive Date: ? 08/24/2003 Provider: ?ERINN DAWSON NP Copy to: ? Specimen/Source: ?ThinPrep Pap Test, Cervix/Endocervix Last Menstrual Period: ? 08/16/03 ? SPECIMEN ADEQUACY ? Satisfactory for Evaluation - transformation zone component present GENERAL CATEGORIZATION ? Negative for Intraepithelial Lesion or Malignancy ? Document reviewed and electronically signed by: ? SELINA Valerio(ASCP) ? Report Date: ??08/27/2003 07:12 End of Report DIVINA HARRY 08/20/2003 08/24/2003 Erinn Dawson NP PATHOLOGY ORDERABLES DIVINA HARRY [address] [place] [address] documented in this encounter Visit Diagnoses Not on filedocumented in this encounter
--- OUTSIDE RECORDS SUMMARY | 2023-11-01 14:59 | XMS_ITS | Clinical Summary ---
Author Organization [facility] Address [address] [place] [address] Care Team Providers Care Demand Equipment Repairer Name Role Phone Unknown, Provider Primary Care Provider Allergies Active Allergy Reactions Criticality Noted Date Comments Codeine 09/30/2014 Medications Medication Sig Dispensed Refills Start Date End Date Status Multivitamins with Minerals tablet tablet Take 1 Tab by mouth daily. Active Active Problems No known active problems Encounters Date Type Department Care Team Description 10/25/2023 Lab Requisition [facility] Pathology & Laboratory Medicine - [facility] [address] [place] [address] Outr Resulting Lab, Provider from Last 3 Months Social History Tobacco Use Types Packs/Day Years Used Date Smoking Tobacco: Never Smokeless Tobacco: Never Interpersonal Safety Answer Date Record ed Physically Hurt Never 11/02/2019 Verbally Threaten Not on file 11/02/2019 Sex and Gender Information Value Date Recorded Sex Assigned at Not on file Gender Identity Female 08/21/2019 9:47 EDT Sexual Orientation Not on file Obstetrics History Last Filed Vital Signs Vital Sign Reading Time Taken Comments Blood Pressure - - Pulse 80 09/04/2019 1421 EDT Temperature 36.7 ??C (98 ??F) 10/10/2019 1122 EDT Respiratory Rate - - Oxygen Saturation - - Inhaled Oxygen Concentration - - Weight - - Height - - Body Mass Index - - Plan of Treatment Health Maintenance Due Date Last Done Comments Hepatitis C Screen 1960 RSV Immunization ( o r 60+ Years) (1 - 1-dose 60+ series) 2018 COVID-19 Vaccine ( season) 2022 Fall Risk Screening 2023 Procedures Procedure Name Priority Date/Time Associated Diagnosis Comments PARASITE EXAM, BLOOD Routine 10/25/2023 15:58 EDT from Last 3 Months Results * PARASITE EXAM, BLOOD (10/25/2023 15:58 EDT) Parasite Identification No blood parasite seen. Single negative specimen does not rule out parasitic infection. No blood parasite seen, No organism seen. PCR is the most sensitive method for Anaplasmosis or Ehrlichiosis 10/27/2023 10:02 EDT [facility] Blood VENOUS BLOOD / Unknown 10/25/2023 15:58 EDT 10/25/2023 22:01 EDT Provider Outr Resulting Lab MICROBIOLOGY - GENERAL ORDERABLES [facility] [address] [place] [address] from Last 3 Months Care Teams Demand Equipment Repairer Relationship Specialty Start Date End Date Unknown, Provider, PCP - General 12/20/10
--- OUTSIDE RECORDS SUMMARY | 2023-11-01 14:59 | XMS_ITS | Encounter Summary ---
Author Organization [facility] Address [facility] [place] [address] Care Team Providers Care Sheet Sewer Name Role Phone Jasmyn Us ND Primary Care Provider [phone] Reason for Visit * Reason Comments Skin Check Encounter Details Date Type Department Care Team (Late st Contact Info) Description 11/21/2019 9:15 AM EDT Office Visit Dermatology at [facility] [address] [place] [address] Jojo Lin MD [facility] [address] [place] [address] Lentigines; Multiple benign nevi Social History Tobacco Use Types Packs/Day Years Used Date Smoking Tobacco: Never Smokeless Tobacco: Never Sex and Gender Information Value Date Recorded Sex Assigned at Not on file Gender Identity Not on file Sexual Orientation Not on file documented as of this encounter Progress Notes * Jojo Lin MD - 11/21/2019 9:15 AM EDT Images from the original note were not included. D[facility]MATOLOGY AT [facility] D[facility] At [facility] [address] [facility] [address] FOLLOW-UP Date of service: 11/21/2019 Maddi Taylor : 1960 Provider: Jojo Lin MD Preferred name: Mandi Preferred contact method with results: Phonecall Message with results on machine okay?: no I give Dr. Lin's team permission to discuss my results with:myself SKIN HISTORY: No skin cancer Chief Complaint: skin cancer screening History of Present Illness Maddi Taylor is a 59 y.o. year old female. Established patient, last seen a year ago . Here today for a full skin check.Here only area of concern is her skin on her arms. Allergies Codeine Medications Current Outpatient Medications Medication [...] facility-administered medications for this visit. Social History Will be traveling Family History none Review of Systems General: feeling well Skin: [...] findings listed below. Significant skin findings: ?? 0.3-0.6cm light-brown evenly pigmented, well-demarcated macules, scattered scattered lentigenes on the hands, occasional brown papules on the back. Waxy brown papule on The suprapubic area. Images Photo taken and charted with patient consent [Figure A] ASSESSMENT/PLAN: 1. Solar lentigines Patient reassured of benign nature, reinforced importance of sun protection 2. Benign Nevi. Patient reassured of benign nature, reinforced importance of sun protection 3. SK- suprapubic. RTC in 1 year for a full skin check, sooner if needed. Note initiated and routed to physician for review and change by: MARY ANNE POLLOCK LPN I, MARY ANNE POLLOCK LPN , have performed the documentation for this encounter in the presence of and acting as a scribe Ginna LIN MD. I performed the services which were documented by the scribe, and I agree with the accuracy of the documentation in this encounter. JOOJ LIN MD. Jojo Lin MD Section of Dermatology [facility] documented in this encounter Plan of Treatment Not on file documented as of this encounter Visit Diagnoses Diagnosis Lentigines Other dyschromia Multiple benign nevi Benign neoplasm of skin, site unspecified documented in this encounter Care Teams Sheet Sewer Relationship Specialty Start Date End Date Jasmyn Us ND [address] [place] [address] PCP - General Naturopathic Medicine 11/30/17 11/02/21 documented as of this encounter
--- OUTSIDE RECORDS SUMMARY | 2023-11-01 14:59 | XMS_ITS | Encounter Summary ---
Author Organization [facility] Address [address] [place] [address] Care Team Providers Care Land Lease Information Clerk Name Role Phone Unavailable Primary Care Provider Unavailabl e Encounter Details Date Type Department Care Team ([facility] st Contact Info) Description 06/11/2002 Results Only [facility] - Maple conversion [address] [place] [address] Erinn Dawson, DAMIR Social History Tobacco Use [...] Priority Date/Time Associated Diagnosis Comments CYTOPATHOLOGY Routine 06/11/2002 0:00 EST documented in this encounter Results * CYTOPATHOLOGY (06/11/2002 0:00 EST) Pathology Report: CYTOPATHOLOGY REPORT Reports generated via electronic interface contain original data; however they are lacking the format of the original report. Caution should be taken when reading/interpreti ng unformatted reports. Name: ? ALBARO BLOOM ? Accession #: ? [id number] : ? 1960 (Age: 42) ??F ?Collect Date: ? 06/11/2002 Location: ? [facility] ? Receive Date: ? 06/12/2002 Provider: ?ERINN DAWSON NP Copy to: ? Specimen/Source: ?ThinPrep Pap Test, Cervix/Endocervix Last Menstrual Period: ? 05/23/02 ? SPECIMEN ADEQUACY ? Satisfactory for Evaluation - transformation zone component present GENERAL CATEGORIZATION ? Negative for Intraepithelial Lesion or Malignancy ? Document reviewed and electronically signed by: ? Tiffani Cain, SCT(ASCP) ? Report Date: ??06/16/2002 10:00 End of Report DIVINA HARRY 06/11/2002 06/12/2002 Erinn Dawson NP PATHOLOGY ORDERABLES DIVINA HARRY [address] [place] [address] documented in this encounter Visit Diagnoses Not on filedocumented in this encounter
--- OUTSIDE RECORDS SUMMARY | 2023-11-01 14:59 | XMS_ITS | Encounter Summary ---
Author Organization [facility] Address [facility] [place] [address] Care Team Providers Care Inventory Control Planner Name Role Phone Jada Ventura MD Primary Care Provider [phone] Encounter Details Date Type Department Care Team (Late st Contact Info) Description 09/20/2023 11:30 AM EDT Office Visit Dermatology at [facility] [address] [place] [address] Ramya Contreras MD [facility] [place] [address] Skin cancer screening; AK (actinic keratosis); Winters angioma; SK (seborrheic keratosis); Lentigines; Multiple benign melanocytic nevi of upper extremity, lower extremity, and trunk Social History Tobacco Use Types Packs/Day Years Used Date Smoking Tobacco: Never Smokeless Tobacco: Never Sex and Gender Information Value Date Recorded Sex Assigned at Not on file Gender Identity Not on file Sexual Orientation Not on file documented as of this encounter Progress Notes * Ramya Contreras MD - 09/20/2023 11:30 AM EDT Images from the original note [...] of Present Illness: Maddi Taylor is a 63 y.o. Patient returns to clinic today fora full skin exam with the following concerns: - was concerned about a spot on the left side of the face, appears to be gone today. Was red but non bothersome - recent new onset headaches, being evaluated by PCP/ENT Last visit at Dermatology: 09/05/2022 Last visit with this provider: 09/05/2022 Medications: Reviewed in eD-H Allergies: Reviewed in [...] the findings below. Genitalia not examined. Assessment/Plan #. Actinic keratoses - ill-defined scaly pink papule(s) on the right cheek x1, right forehead x2, right brow x1, left forehead x1 - Reviewed diagnosis with patient, premalignant potential, and treatment options including clinicalmonitoring (risks include progression), LN2 (risks including discoloration, discomfort, and possible recurrence) - Joint decision to proceed with clinical monitoring with plan for probable LN2 at next appointment - Advised patient to monitor and call if she notices a change #. Solar lentigines - 0.3-0.6cm light-brown evenly pigmented, well-demarcated macules in a photodistributed pattern on the face, trunk and extremities. - Recommend diligent sun protection (hats/shade/clothing/sunscreen) - Discussed warning signs of skin cancer #. Seborrheic keratoses - sandhu/brown waxy stuck-on papules and plaques on the trunk and extremities. - Reassured of the benign nature of these lesions - No treatment needed #. Melanocytic nevi - Scattered medium-brown macules and papules on the head, trunk, and extremities. - Morphology reassuring for benign nevi. - Reassured of benign appearance on exam today. - Reviewed warning signs of skin cancer - Recommend daily sun protection with protective clothing and SPF 30+ #. Winters angiomas - scattered on the trunk and extremities are bright red smooth papules. - Reassured of the benign nature of these lesions. No treatment needed. Other: Sun protection discussed (protective clothing and SPF30+ broad-spectrum sunscreen) RTC: 1 year for FSE // sooner as needed [x]Note routed to corporation secretary []Recall placed in scheduling system []Appointment scheduled at checkout Scribe attestation: JEREMIAH Marino has performed the documentation for this encounter in the presence of and acting as a scribe for Ramya Contreras MD. I performed the above scribed service and agree with the accuracy of the documentation in this encounter. Reviewed and signed by: Ramya Contreras MD Dermatology [facility] documented in this encounter Plan of Treatment Not on file documented as of this encounter Visit Diagnoses Diagnosis Skin cancer screening Screening for malignant neoplasm of the skin AK (actinic keratosis) Actinic keratosis Winters angioma Nevus, non-neoplastic SK (seborrheic keratosis) Other seborrheic keratosis Lentigines Other dyschromia Multiple benign melanocytic nevi of upper extremity, lower extremity, and trunk documented in this encounter Care Teams Inventory Control Planner Relationship Specialty Start Date End Date Jada Ventura MD [address] [place] [id number] PCP - General Family Medicine 11/03/21 documented as of this encounter
--- OUTSIDE RECORDS SUMMARY | 2023-11-01 14:59 | XMS_ITS | Encounter Summary ---
Author Organization [facility] Address [address] [place] [address] Care Team Providers Care Sheep Farm Worker Name Role Phone Unknown, Provider Primary Care Provider [phone] Encounter Details Date Type Department Care Team ([facility] st Contact Info) Description 10/25/2023 Lab Requisition [facility] Pathology & Laboratory Medicine - [address] [address] Outr Resulting Lab, Provider Social History Tobacco [...] PARASITE EXAM, BLOOD Routine 10/25/2023 15:58 EDT documented in this encounter Results * PARASITE EXAM, BLOOD (10/25/2023 15:58 EDT) Parasite Identification No blood parasite seen. Single negative specimen does not rule out parasitic infection. No blood parasite seen, No organism seen. PCR is the most sensitive method for Anaplasmosis or Ehrlichiosis 10/27/2023 10:02 EDT [facility] Blood VENOUS BLOOD / Unknown 10/25/2023 15:58 EDT 10/25/2023 22:01 EDT Provider Outr Resulting Lab MICROBIOLOGY - GENERAL ORDERABLES [facility] [address] [place] [address] documented in this encounter Visit Diagnoses Not on filedocumented in this encounter Care Teams Sheep Farm Worker Relationship Specialty Start Date End Date Unknown, Provider, PCP - General 12/20/10 documented as of this encounter
--- OUTSIDE RECORDS SUMMARY | 2023-11-01 14:59 | XMS_ITS | Encounter Summary ---
Author Organization [facility] Address [address] [place] [address] Care Team Providers Care Backside Grinder Name Role Phone Unknown, Provider Primary Care Provider [phone] Encounter Details Date Type Department Care Team ([facility] st Contact Info) Description 04/10/2016 Results Only [facility] [phone] Amparo Reyna, [address] [phone] Social History Tobacco Use Types Packs/Day Years [...] Diagnosis Comments PAP TEST- RESULT ONLY Routine 04/10/2016 0:00 EST documented in this encounter Results * PAP TEST- RESULT ONLY (04/10/2016 0:00 EST) Pathology Report: CYTOPATHOLOGY REPORT Reports generated via electronic interface contain original data; however they are lacking the format of the original report. Caution should be taken when reading/interpreti ng unformatted reports. Name: ? ALBARO ROBERT ? Accession #: ? [id number] ? : ? 1960 (Age: 56) ??F ?Collect Date: ? 04/10/2016 ? Location: ? [facility] ? Receive Date: ? 04/11/2016 ? Provider: AMPARO REYNA [facility] Copy to: CECI STEVENSON MD ? Final Report SPECIMEN ADEQUACY ? Satisfactory for Evaluation - assessment of transformation zone component not applicable ( e.g. atrophy, vaginal sample, hysterectomy) GENERAL CATEGORIZATION ? Negative for Intraepithelial Lesion or Malignancy ?? Last Menstrual Period: 2009 Specimen/Source: ??Pap Test, Cervix, ThinPrep Imaging System with manual evaluation Document reviewed and electronically signed by: ? SELINA Valerio(ASCP) ? Report ??Date: 04/13/2016 12:36 HPV with Pap Test ? Date Ordered: ? 04/13/2016 ? Status: ?? Signed Out ?Date Complete: ? 04/17/2016 ? By: ??System Interface ? Date Reported: ? 04/17/2016 ? Interpretation RESULT: Negative for HPV. No E6 or E7 mRNA is detected from HPV types 16,18,31,33,35, 39,45,51,52,56,58, 59,66, and 68 by nuclear supervising operator mediated amplification. Comments Document reviewed and electronically signed by: ? System Interface ? Report date: 04/17/2016 By the signature above, the attending physician certifies that he/she has personally conducted a gross and/or microscopic examination of the described specimens and rendered or confirmed the above diagnosis. End of Report [facility] 04/10/2016 04/11/2016 Amparo Reyna HIGH RISK CASE MANAGER PATHOLOGY ORDERABLES [facility] [address] [place] [address] documented in this encounter Visit Diagnoses Not on filedocumented in this encounter Care Teams Backside Grinder Relationship Specialty Start Date End Date Unknown, Provider, PCP - General 12/20/10 documented as of this encounter
--- OUTSIDE RECORDS SUMMARY | 2023-11-01 14:59 | XMS_ITS | Encounter Summary ---
Author Organization [facility] Address [address] [place] [address] Care Team Providers Care Shutdown Planner Name Role Phone Unknown, Provider Primary Care Provider [phone] Reason for Visit * Reason Onset Date Comments Other 09/24/2019 AT LAST VISIT AM STATED TO PATIENT THAT SHE WAS GOING TO GIVE HER SOME EXERCISES TO DO FOR HER FEET. Encounter Details Date Type Department Care Team ([facility] Contact Info) Description 09/24/2019 Telephone [facility] - [facility] Orthopedics & Podiatry [address] [place] [address] Olivia Meyer DPM [address] [facility] [address] [place] [address] Other (AT LAST VISIT AM STATED TO PATIENT THAT SHE WAS GOING TO GIVE HER SOME EXERCISES TO DO FOR HER FEET. ) Social History Tobacco Use Types Packs/Day Years [...] 14:20 EDT documented as of this encounter Miscellaneous Notes * Telephone Encounter - Olivia Meyer DPM - 09/24/2019 9522 EDT Exercises sent. Closing TE * Telephone Encounter - Meli Bhatti - 09/24/2019 1046 EDT When calling patient to R/S appt, she mentioned that AM was going to e-mail her some exercises to do for her feet. I did no see anything in note that stated that could have been verbal. Confirmed e-mail address with patient. Thanks documented in this encounter Plan of Treatment Not on file documented as of this encounter Visit Diagnoses Not on filedocumented in this encounter Care Teams Shutdown Planner Relationship Specialty Start Date End Date Unknown, Provider, PCP - General 12/20/10 documented as of this encounter
--- OUTSIDE RECORDS SUMMARY | 2023-11-01 14:59 | XMS_ITS | Continuity of Care Document ---
Author Organization [facility] Ambulatory Clinics Address [address] [place] [address] Care Team Providers Care Public Relations Representative Name Role Phone GUILLERMINA HARVEYAH Louisa Primary Care Physician Encounter [facility] NBR [id number] Date(s): 09/07/23 - 09/07/23 [facility] Ambulatory [facility] [address], [place] [address] Encounter Diagnosis Headache(Discharge Diagnosis) - 09/07/23 Chronic sinus infection(Discharge Diagnosis) - 09/07/23 Discharge Disposition: Home or Self Care Attending Physician: Tristian Rice DO Allergies, Adverse Reactions, Alerts Substance Reaction Severity Status codeine Unknown Active Beef Unknown Active Assessment and Plan Extracted from: Title:ENT Office Visit Note Author:Tristian bahena DO Date:09/07/23 1.??Headache??R51.9 Patient and I discussed that we would be able to determine if her headaches are sinus related, or neurologically related. Patient and I discussed that we would proceed with order imaging, she would like to have Brain MRI completed first, and then image the sinuses after??to rule out headaches being caused by chronic sinus infections. Patient aware that our office can help with treatment of migraines, but would need a neurological evaluation as well. Future Scheduled Tests Radiology* MRI Brain w/ + w/o Contrast 09/07/23 Medications Fish Oil oral capsule 1 cap, [...] sinus infection Confirmed Active Headache Confirmed Active Physician Outpatient Note * Tristian Rice, DO: PERFORM Tristian Rice, DO: PERFORM, MODIFY Tristian Rice, DO: MODIFY, MODIFY Event Display: Office Clinic Note Physician Authored Date: [id number] JOHN DAY ALBARO VELAZQUEZ I :1960 Age:63 years Sex:Female Visit Date:09/07/2023 Primary Care Physician: CATHERINE HARVEY Chief Complaint new patient - headaches History of Present Illness New patient referred to clinic with complaint of headaches. Patient reports that pain is above eyebrow area and radiates to posterior neck. Patient reports having difficulty sleeping, waking up 2-3 nights and being unable to go back to sleep. Patient states that within the past two weeks, her headaches are getting worse. Patient states that her headaches are mostly in the evening. Patient states that if she leans forward to pick something up quickly, she gets stabbing pain in the head. Patient states that she went to [facility] this winter and got E Coli, after she came back, she had a horrible cold, and then the headaches started. Patient never had a prior history of headaches. Patient states that the headache now is constant, and never really goes away. Patient does not have complaints of seeing an aura, patient does now have a sensitivity of light and sound. Patient has tried Tylenol, ibuprofen, Flonase and a decongestant to help with symptoms, but that didn't seem to work. Patientstates that her only relief is going to lie down. Patient states that she has had a fair amount of stress in her life lately. Patient had her labs drawn after returning from [facility] and she statesthat everything was normal.??Patient states that the only imaging she has had was of the neck.?? She recalls having an MRI of the neck which was negative. ??She feels like when she leans forward she has??unilateral increased pain in the right frontal lobe??and part of her skull. ??She does admit to some??radiation of pain??to the mid right scalp and occipital area.?? She does have a history of intermittent sinus infections in the past, she denies any other neurologic symptoms. ??She is relatively healthy very frustrated with this??chronic ongoing??significant headache pain which is unilateral. Review of Systems Negative for: no new cardiac, respiratory, GI, , hematologic, neurologic, psychological, allergic, traumatic or endocrine problems except as listed above Physical Exam GENERAL APPEARANCE:??The patient is awake, alert, and oriented and in no acute distress, Appears nutritionally sound, Healthy in appearance, Voice is strong, with no stridor or stertor, Handling secretions without difficulty.?PSYCH:??affect normal, good eye contact, oriented to person, oriented to place, oriented to time.?NEURO:??CN's II-XII grossly intact, Gait is normal, The patient has endpoint nystagmus only.?HEENT:??The patient is normocephalic with a normal facies with cranial nerves 2 through 12 bilaterally equal and intact. Pupils are equal and reactive to light with extraocular movements bilaterally equal and intact. There is no proptosis or enophthalmos,??EARS:, Ear exam reveals normal appearing pinna bilaterally. Mastoids are normal to palpation and nontender bilaterally. the ext ernal canal are patent, without otorrhea, with bilateral TM's mobile with no evidence of middle earfluid, middle ear masses, or retraction pockets.??NOSE:, The inferior turbinates are within normal limits, The middle meati are unremarkable with no polyps, masses or purulent discharge,??ORAL CAVITY:, no trismus, tongue and floor of mouth are normal to inspection and palpation. Mucosa is moist andhealthy throughout. the palate is intact and elevates symmetrically in midline,??OROPHARYNX:, Uvulamidline, soft palate symmetric.?NECK:??There is no palpable lymphadenopathy.?HEART:??regular rate and rhythm.?LUNGS:??clear to auscultation bilaterally, no wheezes/rhonchi/rales.?SKIN:??normal across the head and neck.?MUSCULOSKELETAL:??normal gait and station.?? Medical Decision Making: I cannot??rule out central etiology since she has unilateral progressive??headache of the right frontal region I have recommended MRI imaging. ??This does not sound to be like a sinus??issue however if there is concern dedicated sinus study would be a CT. ??We will begin with imaging she is in agreement and??feels this is appropriate Assessment/Plan 1.??Headache??R51.9 Patient and I discussed that we would be able to determine if her headaches are sinus related, or neurologically related. Patient and I discussed that we would proceed with order imaging, she would like to have Brain MRI completed first, and then image the sinuses after??to rule out headaches beingcaused by chronic sinus infections. Patient aware that our office can help with treatment of migraines, but would need a neurological evaluation as well. Future Orders MRI Brain w/ + w/o Contrast, 09/07/23, Routine, Reason: chronic daily headaches, No, No, Transport Mode: Ambulatory, Headache Problem List/Past Medical History Ongoing Headache Historical No qualifying data Medications Fish Oil oral capsule, 1 cap, Oral, Daily fluticasone propionate multivitamin adult, oral tablet, 1 tab, Oral, Daily valACYclovir 500 mg oral tablet Vitamin D3 125 mcg (5000 intl units) oral tablet, disintegrating Allergies Beef codeine Electronically Signed on 09/07/2023 09:52 EDT Tristian Rice, Patient Care team information Care Team Personnel Name: CATHERINE HARVEY Position: No Access Member Role: Primary Care Physician Address: Address: [address] [place] [id number] [place] Care Team Related Persons Name: ANA VELAZQUEZ Address: Home [address] [place] [address] [facility]
--- OUTSIDE RECORDS SUMMARY | 2023-11-01 14:59 | XMS_ITS | Encounter Summary ---
Author Organization [facility] Address [facility] [place] [address] Care Team Providers Care Lug Loader Name Role Phone Unavailable Primary Care Provider Unavailabl e Encounter Details Date Type Department Care Team (Late st Contact Info) Description 11/05/2009 Ancillary Procedure [place] [address] Jasmyn Us [place] [address] [place] [address] Social History Tobacco Use Types Packs/Day Years [...] Comments FILM LIBRARY STORAGE ONLY MAMMO Routine 11/05/2009 12:00 AM EDT documented in this encounter Results * Film Library- Storage Only Mammo (11/05/2009 12:00 AM EDT) Narrative [facility] - 09/17/2020 4:50 PM EDT This exam is auto-finalizing. It's purpose is for storage only. Jasmyn Us [place] [facility] FILM LIBRARY ORD ERABLES Performing Organization Address City/State/[facility] Co de Phone Number [place], [place] documented in this encounter Visit Diagnoses Not on filedocumented in this encounter
--- OUTSIDE RECORDS SUMMARY | 2023-11-01 14:59 | XMS_ITS | Encounter Summary ---
Author Organization [facility] Address [address] [place] [address] Care Team Providers Care Copy Chief Name Role Phone Unknown, Provider Primary Care Provider [phone] Encounter Details Date Type Department Care Team (Latest Contact Info) Description 09/04/2019 Travel Social History Tobacco Use Types Packs/Day [...] 14:20 EDT documented as of this encounter Plan of Treatment Not on file documented as of this encounter Visit Diagnoses Not on filedocumented in this encounter Care Teams Copy Chief Relationship Specialty Start Date End Date Unknown, ProviderMD PCP - General 12/20/10 documented as of this encounter
--- OUTSIDE RECORDS SUMMARY | 2023-11-01 14:59 | XMS_ITS | Encounter Summary ---
Author Organization [facility] Address [facility] [place] [address] Care Team Providers Care Clay Washer Name Role Phone Jada Ventura MD Primary Care Provider [phone] Encounter Details Date Type Department Care Team (Latest Contact Info) Description 09/04/2022 Travel Social History Tobacco Use Types Packs/Day [...] on filedocumented in this encounter Care Teams Clay Washer Relationship Specialty Start Date End Date Jada Ventura MD [address] [place] [address] PCP - General Family Medicine 11/03/21 documented as of this encounter
--- OUTSIDE RECORDS SUMMARY | 2023-11-01 14:59 | XMS_ITS | Encounter Summary ---
Author Organization [facility] Address [address] [place] [address] Care Team Providers Care Film Composer Name Role Phone Unavailable Primary Care Provider Unavailabl e Encounter Details Date Type Department Care Team ([facility] st Contact Info) Description 05/30/1999 Results Only [facility] [address] [place] [address] Margaret Guillen MD [address] [place] [phone] Social History Tobacco Use Types Packs/Day Years Used Date Smoking Tobacco: Never Assessed Sex and Gender Information Value Date Recorded Sex Assigned at Not on file Gender Identity Female 08/21/2019 9:47 EDT Sexual Orientation Not on file documented as of this encounter Plan of Treatment Not on file documented as of this encounter Procedures Procedure Name Priority Date/Time Associated Diagnosis Comments CYTOPATHOLOGY Routine 05/30/1999 12:03 EST documented in this encounter Results * CYTOPATHOLOGY (05/30/1999 12:03 EST) Pathology Report: CYTOPATHOLOGY REPORT Reports generated via electronic interface contain original data; however they are lacking the format of the original report. Caution should be taken when reading/interpreti ng unformatted reports. Name: ? ALBARO BLOOM ? Accession #: ? [id number] : ? 1960 (Age: 39) ??F ?Collect Date: ? 05/30/1999 Location: ?Receive Date: ? 05/30/1999 Provider: ?MARGARET GUILLEN IRON BENDER Copy to: ?MARGARET D MINDY IRON BENDER ? Specimen/Source: ?Pap Smear (One Slide) Last Menstrual Period: ? GYNECOLOGIC ??CYTOPATHOLOGY ??REPORT Name: ALBARO BLOOM ? [facility] : 1960 ?? 39Y F ?Client ID: [id number] SS#: [id number] ? Clinician: MINDY REICH, MARGARET Stephens Location: [facility] ??Copy to: ?? Specimen: ?Pap Smear (One Slide) ? Source: Cervix/Endocervix ?Collected: 05/25/99 ? Received: 05/30/1999 ?LMP: 05/03/99 ? Hormone Therapy: No ? : No ? Radiation Therapy: No ?? Post : No ?Chemotherapy: No ?IUD: No ? Prev Abnormal Pap: No ?? Clinical Hx: ?(Blank marquis indicate information not provided on requisition) SPECIMEN ADEQUACY: ? Satisfactory For Evaluation ?? GENERAL CATEGORIZATION: ? WITHIN NORMAL LIMITS ? Reviewed And Electronically Signed By: ? Tiffani Cain, SCT(ASCP) ? Report Date: ?? 05/30/1999 thredUPquest Archived Tests - Final Diagnosis Text Field: Clinical History : ? Document reviewed and electronically signed by: ? Conversion ? Report Date: ??05/30/1999 00:00 End of Report DIVINA HARRY 05/30/1999 12:0 3 EST 05/30/1999 12:04 EST Margaret Guillen MD PATHOLOGY ORDERABLES Performing Organization Address City/State/[facility] Co de Phone Number DIVINA HARRY [address] [place] [address] documented in this encounter Visit Diagnoses Not on filedocumented in this encounter
[2023-11-02 10:52] LABS: Lyme Ab w Rflx to Lyme Confirm Negative (Negative)
[2023-11-04 00:41] LABS: Anaplasma phagocytophilum Negative (Negative); B. miyamotoi PCR Negative (Negative); Babesia divergens/MO-1 Negative (Negative); Babesia duncani Negative (Negative); Babesia microti Negative (Negative); Ehrlichia chaffeensis Negative (Negative); Ehrlichia ewingii/canis Negative (Negative); Ehrlichia muris eauclairensis Negative (Negative)
[2023-11-06 17:10] LABS: Dengue Virus Ab IgG Negative (Negative); Dengue Virus Ab IgM Negative (Negative)
[2023-11-14 20:51] LABS: Chikungunya IgG Ab Negative (Negative); Chikungunya IgM Ab Negative (Negative)
== END 2023-11-01 14:55 | disposition home or self-care (01) ==
LOC: LBO 14:56
PROVIDERS: PCP Nurse Practitioner Family; Visit Provider Nurse Practitioner Family
DX: R51.9 Headache, unspecified (principal); G89.29 Other chronic pain; R41.3 Other amnesia
CPT/HCPCS: 36415; 86790; 87798; 85025; 86618

== ENCOUNTER 2023-11-21 12:58 | Outpatient (CLI) | payer MEDICARE, BC, SELFPAY ==
[2023-11-23 10:29] LABS: CMV IgG Antibody Positive (See Note)
[2023-11-23 10:55] LABS: EBV EA IgG Negative (Negative)
== END 2023-11-21 12:59 | disposition home or self-care (01) ==
LOC: LBO 13:02
PROVIDERS: PCP Nurse Practitioner Family; Visit Provider Nurse Practitioner Family
DX: R51.9 Headache, unspecified (principal); G89.29 Other chronic pain; R41.3 Other amnesia
CPT/HCPCS: 36415; 86663; 86644

== ENCOUNTER → 2023-12-13 13:02 | Outpatient (BNVA) | payer MEDICARE, BC, SELFPAY | PROVIDERS: PCP Nurse Practitioner Family; Referring Provider Family Medicine; Visit Provider Nurse Practitioner Adult Health | DX: R51.9 Headache, unspecified (principal) | CPT/HCPCS: 99214 ==

== ENCOUNTER → 2024-01-15 09:14 | Outpatient (BNVA) | payer MEDICARE, BC, SELFPAY | PROVIDERS: PCP Nurse Practitioner Family; Referring Provider Nurse Practitioner Family; Visit Provider Nurse Practitioner Adult Health | DX: G43.909 Migraine, unspecified, not intractable, without status migrainosus (principal); M54.2 Cervicalgia; Z98.890 Other specified postprocedural states | CPT/HCPCS: 99214 ==

== ENCOUNTER 2024-08-18 21:40 | Outpatient (REF) | payer MEDICARE, BC, SELFPAY | END 2024-08-18 21:41 | disposition home or self-care (01) | LOC: LBN 21:40 | PROVIDERS: PCP Nurse Practitioner Family; Visit Provider Obstetrics & Gynecology | DX: R35.0 Frequency of micturition (principal); R82.89 Other abnormal findings on cytological and histological examination of urine | CPT/HCPCS: 87086 ==